=== PATIENT | male | born 1930 | race Caucasian/White ===

== ENCOUNTER 2016-10-18 11:27 | Inpatient (IN) | payer OTHER, MEDICARE ==
[2016-10-18] VITALS (8 sets, daily range): BP systolic 137–152; BP diastolic 68–83; PULSE 55–78; RESP 18–20; TEMP 97.6–98; O2SAT 96–97
[~2016-10-18] VITALS: Ht 180.3 cm; Wt 91.4 kg
[~2016-10-18 11:27] MED LIST: ASPI81 PO; BACT800T5 PO; FISH1000 PO; GLUC500C56 PO; LISI10TA PO; LORT5TAB PO; PROS5TAB2 PO
[2016-10-18] MEDS ORDERED: SODIUM CHLOR 0.9% 1000 ML INJ 1,000 ML IV SCH (11:36)
[2016-10-18] MEDS ORDERED: ASPIRIN 325 MG TAB PO SCH (11:45)
[2016-10-18] MEDS ORDERED: LISI10TA3 PO (11:58)
[2016-10-18] MEDS ORDERED: IBUP200C PO (11:58)
[2016-10-18] MEDS ORDERED: SALM50I INH (11:58)
[2016-10-18] MEDS ORDERED: ASPI81TA5 PO (11:58)
[2016-10-18] MEDS: NS 1000P @30 MLS/HR (KVO) IV SCH (12:15)
[2016-10-18 12:29] LABS: BASOPHIL % 0.4 % (0.0-2.0); EOSINOPHIL # 0.1 TH/MM3 (0-0.4); EOSINOPHIL % 1.5 % (0.0-4.0); HEMATOCRIT 39.8 % (39.0-51.0); HEMO FLAGS DIFF FINAL; LYMPHOCYTE # 1.5 TH/MM3 (1.0-4.8); MEAN CELL VOLUME 95.7 FL (80.0-100.0); MEAN CORPUSCULAR HGB CONC 33.4 % (32.0-36.0); MONO % 9.3 % (0.0-8.0); NEUT % 58.8 % (16.0-70.0); PLATELET COUNT 231 TH/MM3 (150-450); RED BLOOD COUNT 4.16 MIL/MM3 (4.50-5.90); RED CELL DISTRIBUTION WIDTH 14.1 % (11.6-17.2); WHITE BLOOD COUNT 5.1 TH/MM3 (4.0-11.0)
[2016-10-18 12:44] LABS: APTT (PATIENT) 23.9 SEC (24.3-30.1); PROTHROMBIN TIME - PATIENT 11.4 SEC (9.8-11.6)
[2016-10-18 12:45] LABS: BICARBONATE 30.2 MEQ/L (21.0-32.0); POTASSIUM 4.1 MEQ/L (3.5-5.1)
[2016-10-18] MEDS ORDERED: IOHEXOL 350 MG/ML 100 ML BTL (for Cath Lab) OTHER ONE (13:11)
[2016-10-18] MEDS ORDERED: HEPARIN-NS/PF INJ 500 ML ONE (13:21)
[2016-10-18] MEDS ORDERED: MIDAZOLAM HCL 2 MG/2 ML VIAL ONE ×2 (13:22→14:01)
[2016-10-18] MEDS ORDERED: HEPARIN SODIUM - IV 10,000 UNITS/10 ML VIAL ONE (13:57)
[2016-10-18] MEDS ORDERED: METOPROLOL TARTRATE 25 MG TAB PO SCH (16:00)
[2016-10-18] MEDS ORDERED: CEFAZOLIN INJ 500 MG in SODIUM CHLORIDE 0.9% IRR BTL 500 ML IRRIGATION SCH (16:00)
[2016-10-18] MEDS ORDERED: CHLORHEXIDINE GLUCONATE 4% SOLN 120 ML BTL TOPICAL SCH (16:00)
[2016-10-18] MEDS ORDERED: INSULIN REGULAR (IV INFUSION) 100 UNITS in SODIUM CHLORIDE 0.9% INJ 100 ML IV SCH (16:00)
[2016-10-18] MEDS ORDERED: ceFAZolin 2 GM PREMIX 50 ML IV SCH (16:00)
[2016-10-18] MEDS ORDERED: PAPAVERINE INJ 60 MG, NITROGLYCERIN INJ 100 MCG, DILTIAZEM INJ 100 MG in SODIUM CHLORID... IRRIGATION SCH (16:00)
--- NOTE | 2016-10-18 16:05 | PD.CAR.PN ---
CVT Progress Note Subjective/Hospital Course: RISK SCORES About the STS Risk Calculator Procedure: CAB Only Risk of Mortality: 1.871% Morbidity or Mortality: 13.084% Long Length of Stay: 6.125% Short Length of Stay: 40.219% Permanent Stroke: 0.619% Prolonged Ventilation: 7.802% DSW Infection: 0.362% Renal Failure: 1.593% Reoperation: 6.215 Objective: Vital Signs Date Time Temp Pulse Resp B/P Pulse Ox O2 Delivery O2 Flow Rate FiO2 10/18/16 14:45 Room Air 10/18/16 11:56 97.6 63 18 152/83 96 Labs: Laboratory Tests Test 10/18/16 11:57 White Blood Count 5.1 TH/MM3 (4.0-11.0) Red Blood Count 4.16 MIL/MM3 (4.50-5.90) Hemoglobin 13.3 GM/DL (13.0-17.0) Hematocrit 39.8 % (39.0-51.0) Mean Corpuscular Volume 95.7 FL (80.0-100.0) Mean Corpuscular Hemoglobin 32.0 PG (27.0-34.0) Mean Corpuscular Hemoglobin 33.4 % Concent (32.0-36.0) Red Cell Distribution Width 14.1 % (11.6-17.2) Platelet Count 231 TH/MM3 (150-450) Mean Platelet Volume 8.9 FL (7.0-11.0) Neutrophils (%) (Auto) 58.8 % (16.0-70.0) Lymphocytes (%) (Auto) 30.0 % (9.0-44.0) Monocytes (%) (Auto) 9.3 % (0.0-8.0) Eosinophils (%) (Auto) 1.5 % (0.0-4.0) Basophils (%) (Auto) 0.4 % (0.0-2.0) Neutrophils # (Auto) 3.0 TH/MM3 (1.8-7.7) Lymphocytes # (Auto) 1.5 TH/MM3 (1.0-4.8) Monocytes # (Auto) 0.5 TH/MM3 (0-0.9) Eosinophils # (Auto) 0.1 TH/MM3 (0-0.4) Basophils # (Auto) 0.0 TH/MM3 (0-0.2) CBC Comment DIFF FINAL Differential Comment Prothrombin Time 11.4 SEC (9.8-11.6) Prothromb Time International 1.0 RATIO Ratio Activated Partial 23.9 SEC Thromboplast Time (24.3-30.1) Sodium Level 141 MEQ/L (136-145) Potassium Level 4.1 MEQ/L (3.5-5.1) Chloride Level 102 MEQ/L (98-107) Carbon Dioxide Level 30.2 MEQ/L (21.0-32.0) Anion Gap 9 MEQ/L (5-15) Blood Urea Nitrogen 19 MG/DL (7-18) Creatinine 0.85 MG/DL (0.60-1.30) Estimat Glomerular Filtration 86 ML/MIN (>89) Rate Random Glucose 93 MG/DL (74-106) Calcium Level 9.0 MG/DL (8.5-10.1) Result Diagram: 10/18/16 1157 10/18/16 1157 Jatin Dominguez MD Oct 18, 2016 16:05
[2016-10-18] MEDS ORDERED: PILL SPLITTER OTHER PRN (16:15)
[2016-10-18 16:42] LABS: BLOOD, URINE NEG (NEG); COMMENT (UR) CULT NOT INDICATED; CULTURE IF INDICATED CULT NOT INDICATED; GLUCOSE,URINE NEG (NEG); KETONE, URINE NEG (NEG); MUCUS URINE FEW /lpf (OCC); NITRITE,URINE NEG (NEG); URINE COLOR YELLOW (YELLW/STRAW)
[2016-10-18 17:06] LABS: AUTOMATED NEUTROPHIL # 2.3 TH/MM3 (1.8-7.7); BASOPHIL % 0.6 % (0.0-2.0); EOSINOPHIL # 0.1 TH/MM3 (0-0.4); EOSINOPHIL % 1.8 % (0.0-4.0); HEMATOCRIT 36.8 % (39.0-51.0); HEMO FLAGS DIFF FINAL; LYMPH % 34.3 % (9.0-44.0); LYMPHOCYTE # 1.5 TH/MM3 (1.0-4.8); MEAN CELL VOLUME 95.7 FL (80.0-100.0); MEAN CORPUSCULAR HEMOGLOBIN 32.5 PG (27.0-34.0); MEAN CORPUSCULAR HGB CONC 33.9 % (32.0-36.0); MONO % 9.9 % (0.0-8.0); NEUT % 53.4 % (16.0-70.0); PLATELET COUNT 185 TH/MM3 (150-450); RED BLOOD COUNT 3.85 MIL/MM3 (4.50-5.90); RED CELL DISTRIBUTION WIDTH 13.8 % (11.6-17.2); WHITE BLOOD COUNT 4.3 TH/MM3 (4.0-11.0)
[2016-10-18 17:16] LABS: APTT (PATIENT) 25.7 SEC (24.3-30.1); INTERNATIONAL NORMALIZED RATIO 1.1 RATIO; PROTHROMBIN TIME - PATIENT 11.7 SEC (9.8-11.6)
[2016-10-18 17:27] LABS: BICARBONATE 27.5 MEQ/L (21.0-32.0); POTASSIUM 4.4 MEQ/L (3.5-5.1)
--- NOTE | 2016-10-18 17:30 | MB ---
cc: ANA DONAHUE HUMAYUN A. M.D. KHANNA, SOHIT K. MD DATE OF CONSULTATION 10/18/2016, at 3:[address] Westfall REASON FOR CONSULTATION Critical coronary artery disease. HISTORY OF THE PRESENT ILLNESS Mr. Key is a very pleasant 86-year gentleman with a known history of hypertension, GERD, and COPD who now presents with progressive episodes of chest pain. He describes this as a substernal pressure sensation. It is not related to activities or relieved by any activities. He has been evaluated by Dr. Westfall and has undergone further workup including a nuclear stress test which was abnormal and eventual coronary angiogram today which revealed a 95% calcific LAD stenosis with relatively preserved ventricular function. I am now being consulted for surgical revascularization therapy. At present time he remains pain free, hemodynamically stable with no evidence of ongoing ischemia. PAST MEDICAL HISTORY Significant for: 1. Hypertension. 2. Gastroesophageal reflux disease. 3. COPD. 4. Dizziness. 5. History of prostate cancer. PAST SURGICAL HISTORY Remarkable for: 1. Cataract surgery. 2. Prostate radiation. 3. Hernia surgery. 4. Hip replacement. 5. Cardiac cath in the past. ALLERGIES THE PATIENT REPORTS NO KNOWN DRUG ALLERGIES. MEDICATIONS ON ADMISSION Include: 1. Lisinopril 10 mg daily. 2. Aspirin 81 mg daily. 3. Ibuprofen 200 mg q.6h as needed. 4. Serevent Diskus inhaler 50 mcg b.i.d. SOCIAL HISTORY Denies any history of smoking, alcohol use or illicit drug use. FAMILY HISTORY Noncontributory. REVIEW OF SYSTEMS As above. All other parameters negative. PHYSICAL EXAMINATION VITAL SIGNS: Today he is 180 cm tall, weighs 87 kilos, blood pressure 152/83 with a heart rate of 62 which is regular, respiratory rate is 18 and he is afebrile. HEENT: Normocephalic, atraumatic. Pupils round and reactive. Extraocular muscles intact. NECK: No cervical lymphadenopathy, carotid bruits or JVD. CARDIOVASCULAR: Regular rate and rhythm. Normal S1-S2 without gallops, rubs or murmurs. LUNGS: Clear to auscultation bilaterally with good exchange. ABDOMEN: Soft, nontender, nondistended. Normoactive bowel sounds. No hepatosplenomegaly. EXTREMITIES: Bilateral lower extremities pulses are intact without cyanosis, clubbing or edema. No venous varicosities. NEUROLOGIC: Intact with no focal deficits. IMPRESSION 1. Critical single-vessel coronary artery disease. 2. Gastroesophageal reflux disease. 3. Hypertension. 4. COPD. PLAN The clinical and angiographic findings were discussed in detail with the patient and today. Therapeutic options available including MIDCAB in an off-pump fashion was discussed. The risks, complications and benefits of surgical procedure as well as the potential need to convert to a median sternotomy incision was discussed and all questions answered. They appeared to comprehend the given information and wished to proceed with the planned operation. We will proceed with surgical procedure as described above tomorrow morning as a first case basis. In the meantime we will obtain vein mapping, PFTs and carotid duplex imaging. Thank you for allowing me to participate in the care of your patient. Jatin GODDARD /3:54 PM /5:07 PM DONTRELL
[2016-10-18] MEDS ORDERED: EPINEPHrine HCL (1:10,000) 1 MG/10 ML SYRINGE ONE (20:53)
[2016-10-18] MEDS ORDERED: ATROPINE SULFATE 1 MG/10 ML SYRINGE ONE (20:54)
--- NOTE | 2016-10-18 21:21 | RADRPT ---
EXAM DATE/TIME: 10/18/2016 21:12 [facility] COMPARISON: No previous studies available for comparison. INDICATIONS : Evaluate for pneumonia, pneumothorax, or communicable disease. Pre op CABG. MEDICAL HISTORY : None. SURGICAL HISTORY : None. ENCOUNTER: Initial ACUITY: 1 day PAIN SCORE: 0/10 LOCATION: Bilateral chest FINDINGS: The lungs are clear without infiltrate, nodule, or mass. There is no appreciable pleural effusion fo r technique. Heart and mediastinum are unremarkable. The left hemidiaphragm is elevated. There are a therosclerotic calcifications of the aorta due to chronic atherosclerotic disease. Coronary artery ca lcifications are seen typically seen with CAD and need to be evaluated clinically. there is degenerat luan change with osteopenia in the thoracic spine and mild anterior wedging of multiple thoracic verte brae. CONCLUSION: No acute cardiopulmonary disease. Sebastian Flores MD on October 18, 2016 at 21:19 Board Certified Radiologist. This report was verified electronically.
[2016-10-18] MEDS: MUPIROCIN 2% OINT 1 APPLIC/GM SYR EACH NARE SCH (21:27)
--- NOTE | 2016-10-18 21:58 | RADRPT ---
EXAM DATE/TIME: 10/18/2016 20:00 [facility] COMPARISON: No previous studies available for comparison. INDICATIONS : Pre op cardiac surgery. MEDICAL HISTORY : Carcinoma, prostate. Chronic obstructive pulmonary disease. Hypertension. SURGICAL HISTORY : Tonsillectomy. Right hip replacement with revision. Left cataract removal. Cardiac catheterizatio n. ENCOUNTER: Initial ACUITY: 1 day PAIN SCORE: 0/10 LOCATION: Bilateral neck PEAK SYSTOLIC VELOCITIES (cm/sec): ICA/CCA RATIO: Right: 0.5 Left: 1.0 ICA: Right: 98 Left: 91 CCA: Right: 203 Left: 94 ECA: Right: 100 Left: 105 VERTEBRAL: Right: 72 antegrade Left: 65 antegrade Elevated flow velocities and ICA/CCA ratios have been found to correlate with increased degrees of vessel stenosis, calculated as percentage of diameter relative to a normal segment of distal ICA/CCA FINDINGS: Antegrade flow is seen in both vertebral arteries. There is mild atherosclerotic plaquing at the orig in of both ICAs without any significant stenosis. CONCLUSION: No evidence for hemodynamically significant stenosis. Sebastian Flores MD on October 18, 2016 at 21:56 Board Certified Radiologist. This report was verified electronically.
--- NOTE | 2016-10-18 22:02 | RADRPT ---
EXAM DATE/TIME: 10/18/2016 19:18 [facility] COMPARISON: No previous studies available for comparison. EXTERNAL COMPARISON : [facility], US LEG, LEFT VENOUS DOPPLER, May 31, 2016 INDICATIONS : Pre op cardiac surgery. MEDICAL HISTORY : Carcinoma, prostate. Chronic obstructive pulmonary disease. Hypertension. SURGICAL HISTORY : Tonsillectomy. Right hip replacement with revision. Left cataract removal. Cardiac catheterization. ENCOUNTER: Initial ACUITY: 1 day PAIN SCORE: 0/10 LOCATION: Bilateral legs. TECHNIQUE: Venous ultrasound of the left and right leg was performed from the inguinal ligament to the proximal calf. Real-time, color Doppler and spectral tracing, compression and augmentation techniques were us ed. FINDINGS: RIGHT LEG: There is normal compressibility of the deep venous system from the inguinal region to the proximal ca lf. No echogenic clot is seen in the lumen of the common femoral, femoral, popliteal, and posterior tibial veins. There is a normal response of the venous system to proximal and distal augmentation an d respiration. LEFT LEG: There is normal compressibility of the deep venous system from the inguinal region to the proximal ca lf. No echogenic clot is seen in the lumen of the common femoral, femoral, popliteal, and posterior tibial veins. There is a normal response of the venous system to proximal and distal augmentation an d respiration. CONCLUSION: Normal examination. Sebastian Flores MD on October 18, 2016 at 22:00 Board Certified Radiologist. This report was verified electronically.
--- NOTE | 2016-10-18 22:07 | RADRPT ---
EXAM DATE/TIME: 10/18/2016 19:32 [facility] COMPARISON: No previous studies available for comparison. INDICATIONS : Pre op cardiac surgery. MEDICAL HISTORY : Carcinoma, prostate. Chronic obstructive pulmonary disease. Hypertension. SURGICAL HISTORY : Tonsillectomy. Right hip replacement with revision. Left cataract removal. Cardiac catheterization. ENCOUNTER: Initial ACUITY: 1 day PAIN SCORE: 0/10 LOCATION: Bilateral legs. GREATER SAPHENOUS VEIN THIGH: PROXIMAL: Right 4 mm Left 4 mm MID: Right 3 mm Left 3 mm DISTAL: Right 3 mm Left 3 mm CALF: PROXIMAL: Right 3 mm Left 4 mm MID: Right 2 mm Left 2 mm DISTAL: Right 2 mm Left 2 mm FINDINGS: The venous system of the lower extremities are patent by color Doppler imaging. Measurements of the leg veins (in mm) are listed above. CONCLUSION: Normal examination. Sebastian Flores MD on October 18, 2016 at 22:05 Board Certified Radiologist. This report was verified electronically.
[2016-10-19] VITALS (16 sets, daily range): BP systolic 108–158; BP diastolic 43–86; PULSE 53–87; RESP 14–18; TEMP 96.2–98; O2SAT 92–97
[2016-10-19] MEDS ORDERED: AMINOCAPROIC ACID INJ 250 MG/ML 20 ML VIAL IV ONE (05:00)
[2016-10-19] MEDS ORDERED: MAGNESIUM SULFATE 1000 MG/2 ML VIAL (PED) IV ONE (05:00)
[2016-10-19] MEDS ORDERED: PHENYLEPHRINE HCL 10 MG/ML VIAL IV ONE (05:00)
[2016-10-19] MEDS ORDERED: VECURONIUM BROMIDE 10 MG VIAL IV ONE (05:00)
[2016-10-19] MEDS ORDERED: ACETAMINOPHEN 1000 MG/100 ML VIAL IV ONE (05:00)
[2016-10-19] MEDS ORDERED: GLYCOPYRROLATE 0.2 MG/ML VIAL IV ONE (05:00)
[2016-10-19] MEDS ORDERED: PROTAMINE SULFATE 250 MG/25 ML VIAL IV ONE (05:00)
[2016-10-19] MEDS ORDERED: PROPOFOL 1000 MG/100 ML INJ 100 ML IV ONE (05:00)
[2016-10-19] MEDS ORDERED: DEXMEDETOMIDINE INJ 50 ML IV ONE (05:00)
[2016-10-19] MEDS ORDERED: NEOSTIGMINE METHYLSULFATE 10 MG/10 ML VIAL IV PUSH ONE (05:00)
[2016-10-19] MEDS ORDERED: HEPARIN SODIUM - SQ 10,000 UNITS/ML VIAL SQ ONE (05:00)
[2016-10-19] MEDS ORDERED: HEPARIN SODIUM - SQ 10,000 UNITS/ML VIAL ONE (06:25)
[2016-10-19] MEDS ORDERED: ceFAZolin 2 GM PREMIX 50 ML ONE (06:25)
[2016-10-19] MEDS ORDERED: VANCOMYCIN HCL 1000 MG VIAL ONE (06:25)
[2016-10-19] MEDS ORDERED: POTASSIUM CHLORIDE 40 MEQ/20 ML VIAL ONE (07:14)
[2016-10-19] MEDS ORDERED: BUPIVACAINE LIPOSO PF 1.3% INJ 20 ML, DEXAMETHASONE INJ 4 MG in SODIUM CHLORIDE 0.9% IN... P-ARTICULR SCH (07:30)
[2016-10-19] MEDS: MUPIROCIN 2% OINT 1 APPLIC/GM SYR EACH NARE SCH ×2 (09:00→20:42)
[2016-10-19] MEDS: DOBUTamine PREMIX DRIP 250 ML IV SCH (10:34)
--- NOTE | 2016-10-19 10:42 | PD.OP ---
cc: Pam Westfall MD; Jatin Dominguez MD Operative Report Date of Surgery: Oct 19, 2016 Preoperative Diagnosis: Postoperative Diagnosis: Procedure: 1. Minimally Invasive Coronary Artery Bypass Grafting x 1 (MIDCAB) with MONTERO to LAD 2. Intercostal Nerve Block . Surgeon: Jatin Dominguez . Automotive Brake Adjuster(s): Rita Kim . Operation and Findings: PREOPERATIVE DIAGNOSES 1. Coronary Artery Disease 2. COPD 3. HTN POSTOPERATIVE DIAGNOSES Same SURGICAL PROCEDURE 1. Minimally Invasive Coronary Artery Bypass Grafting x 1 (MIDCAB) with MONTERO to LAD 2. Intercostal Nerve Block TOXICOLOGY SUPERVISOR MILO Pearce ANESTHESIA General Endotracheal. BI DATA ARCHITECT Elizabeth Tineo CRNA, Jose Ramon Watkins MD PREPARATION ChloraPrep. NEEDLE, SPONGE AND INSTRUMENT COUNT Correct. DRAINS 28 Fr Chest Tube. COMPLICATIONS None. INDICATIONS The patient is a 86-year-old with chest pain and CAD, presenting for surgical correction of the above pathology. DESCRIPTION OF PROCEDURE The patient was brought to the operating room and placed supine on the OR table. Following the induction of adequate general double lumen endotracheal anesthesia and placement of appropriate monitoring devices, the patient was then prepped and draped in the standard sterile fashion. The patient was positioned supine with the left chest slightly bumped up using an inflatable balloon. A left anterior mini-thoracotomy (6 cm) was then performed in the 4th ICS mid- clavicular line and carried down to the pleura. The left pleural space was entered. Using the Medtronic Thoratrak retractor, the left internal mammary artery (MONTERO) was dissected free as a pedicle from the posterior sternal table. The entire length from the innominate vein to its bifurcation was harvested. The patient was systemically heparinized and anticoagulation monitored by serial ACT measurements. The pericardium was then opened longitudinally over the anterior wall. Stay sutures were placed and the heart exposed. The LAD was identified coursing trans-apically and isolated. At this point the MONTERO was anastomosed to the mid LAD in an end-to-side fashion in a beating heart manner using the Maquet stabilizer and a running 7-0 Prolene stitch. The anastomosis was inspected and appeared to be hemostatic and patent with triphasic flow via doppler evaluation. Protamine was given. The pericardium was partially reapproximated with interrupted Vicryl sutures. The length of the MONTERO graft as well as the harvest sites were inspected and assured to be hemostatic. Intercostal nerve block was performed using Exparel at the level of the incision as well as two rib spaces above and below. A [address] was placed in the pleural space. The intercostal space was approximated with 2 pericostal sutures of #1 Vicryl. The musculo-fascial layer was then closed in 2 layers. The skin was reapproximated with subcuticular stitch and Dermabond. The patient tolerated the procedure well and was transferred to CVICU in stable condition. Jatin Dominguez MD Oct 19, 2016 10:42
[2016-10-19] MEDS ORDERED: MORPHINE SULFATE 4 MG/ML INJ IV PRN (10:45)
[2016-10-19] MEDS ORDERED: EPINEPHrine (1:1000) INJ 4 MG in DEXTROSE 5% IN WATER INJ 246 ML IV SCH ×2 (10:45)
[2016-10-19] MEDS ORDERED: MEPERIDINE HCL 25 MG/ML VIAL IV PRN (10:45)
[2016-10-19] MEDS ORDERED: ALBUMIN HUMAN 5% 12.5 GM/250 ML BOTTLE IV PRN (10:45)
[2016-10-19] MEDS ORDERED: CLEVIDIPINE INJ 50 ML IV SCH (10:45)
[2016-10-19] MEDS ORDERED: POTASSIUM CHLORIDE 20 MEQ CONTROLLED RELEASE TAB PO PRN ×2 (10:45)
[2016-10-19] MEDS ORDERED: ACETAMINOPHEN 650 MG SUPP RECTAL PRN (10:45)
[2016-10-19] MEDS ORDERED: POTASSIUM CHLOR 20 MEQ PREMIX 100 ML IV PRN ×2 (10:45)
[2016-10-19] MEDS ORDERED: KETOROLAC TROMETHAMINE 30 MG/ML (IVP) VIAL IV PUSH PRN (10:45)
[2016-10-19] MEDS ORDERED: NITROGLYCERIN-DEXTROSE INJ 250 ML IV SCH (10:45)
[2016-10-19] MEDS ORDERED: MAGNESIUM SULFATE INJ 2 GM in SODIUM CHLORIDE 0.9% INJ 100 ML IV PRN ×4 (10:45)
[2016-10-19] MEDS ORDERED: ONDANSETRON HCL 4 MG/2 ML VIAL IV PUSH PRN (10:45)
[2016-10-19] MEDS ORDERED: DEXMEDETOMIDINE INJ 200 MCG in SODIUM CHLORIDE 0.9% INJ 50 ML IV SCH (10:45)
[2016-10-19] MEDS ORDERED: CALCIUM CHLORIDE 10% 1 GRAM/10 ML VIAL IV PRN (10:45)
[2016-10-19] MEDS ORDERED: hydrALAZINE HCL 20 MG/ML VIAL IV PRN (10:45)
[2016-10-19] MEDS ORDERED: Post-op Orders (for Pharmacy) MISC OTHER ONE (10:45)
[2016-10-19] MEDS ORDERED: DEXTROSE 50% IN WATER 50 ML VIAL(D50) IV PUSH PRN (10:45)
[2016-10-19] MEDS ORDERED: ACETAMINOPHEN 325 MG TAB PO PRN (10:45)
[2016-10-19] MEDS ORDERED: METOPROLOL TARTRATE 5 MG/5 ML VIAL IV PUSH PRN (10:45)
[2016-10-19] MEDS ORDERED: DOPamine INJ PREMIX 500 ML IV SCH (10:45)
[2016-10-19] MEDS ORDERED: PHENYLEPHRINE INJ 40 MG in DEXTROSE 5% IN WATE 500 ML INJ 496 ML IV SCH ×2 (10:45)
[2016-10-19] MEDS ORDERED: ACETAMINOPHEN/HYDROcodone 325 MG/5 MG TAB PO PRN (10:45)
--- NOTE | 2016-10-19 10:46 | EKG ---
Date Performed: 10/18/2016 Time Performed: 12:06:00 PTAGE: 86 years EKG: Sinus rhythm with PAC(s). Poor R wave progression - probable normal variant Borderline ECG Compared to prior trac ing no significant change PREVIOUS TRACING : 06/18/2008 14.51 DOCTOR: Irena Choi Interpretating Date/Time 10/19/2016 10:40:08
[2016-10-19] MEDS ORDERED: MIDAZOLAM HCL 5 MG/5 ML VIAL ONE ×2 (11:24→11:25)
[2016-10-19] MEDS ORDERED: fentaNYL CITRATE 1000 MCG/20 ML VIAL ONE (11:25)
[2016-10-19] MEDS: CALCIUM CHLORIDE INJ 1 GM in SODIUM CHLORIDE 0.9% INJ 100 ML IV PRN ×2 (11:45→14:40)
[2016-10-19] MEDS: POTASSIUM CHLOR 20 MEQ PREMIX 100 ML IV PRN ×2 (11:45→16:49)
[2016-10-19] MEDS ORDERED: SODIUM CHLORID 0.9% 500 ML INJ 500 ML IV ONE (12:00)
[2016-10-19] MEDS ORDERED: ACETAMINOPHEN 1000 MG/100 ML VIAL IV SCH (12:00)
[2016-10-19] MEDS ORDERED: INSULIN REGULAR (IV INFUSION) 100 UNITS in SODIUM CHLORIDE 0.9% INJ 99 ML IV SCH (12:00)
[2016-10-19] MEDS ORDERED: NORMOSOL R INJ 2,000 ML IV ONE (12:00)
[2016-10-19] MEDS ORDERED: SODIUM CHLOR 0.9% 250 ML INJ 500 ML IV ONE (12:00)
[2016-10-19] MEDS ORDERED: LACTATED RINGER'S 1000 ML INJ 2,000 ML IV ONE (12:00)
[2016-10-19] MEDS: NS 1000P @30 MLS/HR (KVO) IV SCH (12:15)
--- NOTE | 2016-10-19 12:22 | RADRPT ---
EXAM DATE/TIME: 10/19/2016 11:31 [facility] COMPARISON: CHEST PA & LAT, October 18, 2016, 21:12. INDICATIONS : Post CABG MEDICAL HISTORY : Carcinoma, prostate. Chronic obstructive pulmonary disease. Hypertension. SURGICAL HISTORY : Tonsillectomy. Right hip replacement with revision. Left cataract removal. ENCOUNTER: Subsequent ACUITY: 3 days PAIN SCORE: 0/10 LOCATION: Bilateral chest FINDINGS: There are findings of congestive heart failure with interstitial and alveolar opacity bilaterally. A left chest tube is in place. There is no evidence of pneumothorax. A left subclavian catheter in plac e directed superiorly with its tip in the region of the left jugular vein. There is left lower lobe a telectasis versus pneumonia. A small left sided effusion is present. CONCLUSION: 1. Cardiomegaly and findings of congestive heart failure. 2. Left subclavian vein catheter directed superiorly 3. There is no evidence of pneumothorax. Jose Ramon Pond MD on October 19, 2016 at 12:20 Board Certified Radiologist. This report was verified electronically.
[2016-10-19] MEDS: ACETAMINOPHEN 1000 MG/100 ML VIAL IV SCH ×2 (15:56→21:02)
[2016-10-19] MEDS: LACTATED RINGER'S 1000 ML INJ 500 ML IV PRN ×2 (16:12→18:21)
[2016-10-19] MEDS: ACETAMINOPHEN/HYDROcodone 325 MG/5 MG TAB PO PRN (19:46)
[2016-10-19] MEDS: AMIODARONE 200 MG TAB PO SCH (21:02)
[2016-10-20] VITALS (19 sets, daily range): BP systolic 134–165; BP diastolic 58–88; PULSE 70–110; RESP 16–22; TEMP 97.8–98.4; O2SAT 95–100
--- NOTE | 2016-10-20 04:44 | RADRPT ---
EXAM DATE/TIME: 10/20/2016 04:03 [facility] COMPARISON: CHEST SINGLE AP, October 19, 2016, 11:31. INDICATIONS : Shortness of breath. MEDICAL HISTORY : None. SURGICAL HISTORY : CABG. ENCOUNTER: Subsequent ACUITY: 1 day PAIN SCORE: Non-responsive. LOCATION: Bilateral chest FINDINGS: A single portable frontal view of the chest shows a left subclavian central line coursing cephalad up the left internal jugular vein. The heart is enlarged. Elevation left hemidiaphragm. Pulmonary vascu lar engorgement. No effusions. Linear atelectasis within the left lung base. Left-sided chest tube al elinor the lateral aspects of the chest cavity. Most proximal sidehole is approaching but has not reache d the chest wall. CONCLUSION: 1. Left subclavian central line coursing cephalad within the jugular vein. 2. Cardiomegaly and pulmonary vascular engorgement. 3. Left basilar atelectasis. 4. Left chest tube side hole is approaching the chest wall. No pneumothorax. Charbel King Jr., MD on October 20, 2016 at 4:41 Board Certified Radiologist. This report was verified electronically.
[2016-10-20] MEDS: DOBUTamine PREMIX DRIP 250 ML IV SCH (05:00)
[2016-10-20] MEDS: ACETAMINOPHEN 1000 MG/100 ML VIAL IV SCH ×2 (05:00→08:34)
[2016-10-20 05:38] LABS: HEMATOCRIT 30.9 % (39.0-51.0); MEAN CELL VOLUME 95.3 FL (80.0-100.0); MEAN CORPUSCULAR HEMOGLOBIN 32.5 PG (27.0-34.0); MEAN CORPUSCULAR HGB CONC 34.1 % (32.0-36.0); PLATELET COUNT 174 TH/MM3 (150-450); RED BLOOD COUNT 3.24 MIL/MM3 (4.50-5.90); RED CELL DISTRIBUTION WIDTH 14.2 % (11.6-17.2); REVIEW FLAG FINAL; WHITE BLOOD COUNT 8.5 TH/MM3 (4.0-11.0)
[2016-10-20 05:55] LABS: BICARBONATE 26.7 MEQ/L (21.0-32.0); POTASSIUM 4.1 MEQ/L (3.5-5.1)
[2016-10-20] MEDS: ACETAMINOPHEN/HYDROcodone 325 MG/5 MG TAB PO PRN (06:17)
[2016-10-20] MEDS: PANTOPRAZOLE SOD 40 MG DELAYED RELEASE TAB PO SCH (06:17)
[2016-10-20] MEDS ORDERED: POTASSIUM CHLORIDE 20 MEQ CONTROLLED RELEASE TAB PO ONE (08:15)
[2016-10-20] MEDS ORDERED: DEXTROSE 50% IN WATER 50 ML VIAL(D50) IV PRN (08:30)
[2016-10-20] MEDS ORDERED: GLUCAGON 1 MG/ML VIAL OTHER PRN (08:30)
[2016-10-20] MEDS ORDERED: SOD PHOSPHATE/SOD BIPHOSPHATE (ADULT) ENEMA 133ML RECTAL PRN (08:30)
[2016-10-20] MEDS: MUPIROCIN 2% OINT 1 APPLIC/GM SYR EACH NARE SCH ×2 (08:31→21:00)
[2016-10-20] MEDS: ASPIRIN 81 MG CHEW TAB PO SCH (08:31)
[2016-10-20] MEDS: CLOPIDOGREL 75 MG TAB PO SCH (08:32)
[2016-10-20] MEDS: AMIODARONE 200 MG TAB PO SCH ×2 (08:32→21:14)
[2016-10-20] MEDS ORDERED: FUROSEMIDE 40 MG/4 ML VIAL ONE (08:36)
[2016-10-20] MEDS ORDERED: BISACODYL 10 MG SUPP RECTAL PRN (09:00)
--- NOTE | 2016-10-20 09:06 | EKG ---
Date Performed: 10/20/2016 Time Performed: 05:59:26 PTAGE: 86 years EKG: Sinus rhythm . Lateral T wave changes are nonspecific Borderline ECG PREVIOUS TRACING : 10/18/2016 12.06 DOCTOR: Travis Taylor Interpretating Date/Time 10/20/2016 09:04:06
[2016-10-20] MEDS: MAGNESIUM HYDROXIDE SUSP 30 ML CUP PO SCH (09:07)
[2016-10-20] MEDS: METOCLOPRAMIDE HCL 10 MG/2 ML VIAL IV SCH ×3 (09:08→21:16)
[2016-10-20] MEDS: DOCUSATE SODIUM 100 MG CAP PO SCH ×2 (09:08→21:14)
[2016-10-20] MEDS: MULTIVITAMINS/MINERALS THERAPEUTIC TAB PO SCH (09:08)
[2016-10-20] MEDS: SALMETEROL XINAFOATE 50 MCG DISKUS INH SCH ×2 (09:08→21:16)
[2016-10-20] MEDS: METOPROLOL TARTRATE 25 MG TAB PO SCH ×2 (09:08→21:15)
[2016-10-20] MEDS ORDERED: FUROSEMIDE 40 MG/4 ML VIAL IV PUSH ONE (09:15)
[2016-10-20] MEDS: INSULIN ASPART SUPPLEMENTAL SCALE SQ SCH ×4 (09:37→22:00)
[2016-10-20] MEDS: LISINOPRIL 5 MG TAB PO SCH (11:34)
[2016-10-20] MEDS: RESP: ALBUTEROL 2.5 MG/IPRATROPIUM 0.5 MG NEB (SCH) NEB ×2 (13:39→18:58)
--- NOTE | 2016-10-20 15:13 | MA ---
cc: ANA GORMAN HUMAYUN A. M.D. KHANNA, SOHIT K. MD DATE: 10/18/2016 PROCEDURE Cardiac catheterization. INDICATION FOR CATHETERIZATION 1. Unstable angina. 2. Abnormal nuclear stress test. 3. Patient planning to leave country on a cruise. CONSENT A full informed consent was obtained prior to the procedure. The risks of , bleeding, myocardial infarction, perforation, aspiration, foreseen and unforeseen complications were reviewed. The patient fully appeared to understand the risks. PROCEDURAL STATEMENTS The patient was draped and prepped in the usual manner. The right femoral artery was entered using a micropuncture technique with ultrasound. Via a 4-Syriac sheath left and right coronary catheters were used to intubate the left and right coronaries. A pigtail catheter was used to intubate the left ventricle. Multiple angiographic views were carried out. At the end of the procedure all catheters and sheaths were removed. Manual pressure was applied until good hemostasis was achieved and the patient was returned to his room in stable condition. FINDINGS HEMODYNAMICS The aortic pressure and LV pressure were equivalent systolic. There was no evidence of significant gradient on pullback across the LV outflow track and aortic valve. LEFT VENTRICULOGRAM The overall left ventricular ejection fraction was well-preserved at 60%. There was no evidence of significant mitral regurgitation or mural thrombus. CORONARIES The left main was short but wide and free of significant disease. The left anterior descending artery was heavily calcified throughout the proximal mid and early distal sections. In the proximal section was an 85% very eccentric stenosis with heavy calcification. The entire midsection of the LAD was heavily calcified. In the distal part of the midsection of the LAD there was a 95% stenosis. There was a heavily calcified space-occupying nodule in the shape of an "egg" which was heavily calcified. The distal vessel was also moderately calcified but was of good caliber. The left circumflex was a large vessel. The first obtuse marginal branch was large. There was evidence of diffuse 25-30% disease in the first obtuse marginal branch. The second obtuse marginal branch was medium and free of significant disease. The third obtuse marginal branch came off the circumflex and was a medium size vessel with 25% disease. This was probably in the territory of the posterolateral branch. The right coronary artery was a co-dominant vessel and had some mild diffuse 25% disease. CONCLUSIONS 1. Normal LV function. 2. Severe single-vessel coronary artery disease involving the mid LAD. PLAN One could consider high-risk Rotablator versus bypass surgery. The bypass surgery can be done with a "MIDCAB" with a beating heart and I believe over the residential this would be the better treatment for the patient. I have discussed in detail with the patient and his , and with Dr. Jatin Dominguez. Once bypassed the patient will be able to see his regular physician, Dr. Biju Gorman and will follow with the undersigned. Pam Westfall MD, FRCP,[facility] /3:06 PM /2:55 PM
[2016-10-20] MEDS ORDERED: ATORVASTATIN 40 MG TAB PO SCH (21:00)
[2016-10-20] MEDS: SENNOSIDES 8.6 MG TAB PO SCH (21:15)
[2016-10-20] MEDS ORDERED: METOPROLOL TARTRATE 25 MG TAB PO ONE (21:45)
[2016-10-21] VITALS (31 sets, daily range): BP systolic 126–153; BP diastolic 70–95; PULSE 74–112; RESP 16–24; TEMP 97.4–98.4; O2SAT 93–99
[2016-10-21] MEDS: INSULIN ASPART SUPPLEMENTAL SCALE SQ SCH ×5 (02:00→21:00)
[2016-10-21] MEDS: METOCLOPRAMIDE HCL 10 MG/2 ML VIAL IV SCH (02:32)
[2016-10-21] MEDS: PANTOPRAZOLE SOD 40 MG DELAYED RELEASE TAB PO SCH (06:00)
[2016-10-21 06:05] LABS: AUTOMATED NEUTROPHIL # 6.7 TH/MM3 (1.8-7.7); BASOPHIL % 0.3 % (0.0-2.0); EOSINOPHIL # 0.1 TH/MM3 (0-0.4); EOSINOPHIL % 0.9 % (0.0-4.0); HEMATOCRIT 32.8 % (39.0-51.0); HEMO FLAGS DIFF FINAL; LYMPH % 12.9 % (9.0-44.0); LYMPHOCYTE # 1.1 TH/MM3 (1.0-4.8); MEAN CELL VOLUME 95.7 FL (80.0-100.0); MEAN CORPUSCULAR HEMOGLOBIN 32.9 PG (27.0-34.0); MEAN CORPUSCULAR HGB CONC 34.4 % (32.0-36.0); MONO % 8.8 % (0.0-8.0); NEUT % 77.1 % (16.0-70.0); PLATELET COUNT 165 TH/MM3 (150-450); RED BLOOD COUNT 3.43 MIL/MM3 (4.50-5.90); RED CELL DISTRIBUTION WIDTH 13.9 % (11.6-17.2); WHITE BLOOD COUNT 8.7 TH/MM3 (4.0-11.0)
[2016-10-21 06:35] LABS: ALT (GPT) 23 U/L (12-78); ANION GAP 8 MEQ/L (5-15); AST (GOT) 33 U/L (15-37); BICARBONATE 26.8 MEQ/L (21.0-32.0); BLOOD UREA NITROGEN 19 MG/DL (7-18); CHLORIDE 102 MEQ/L (98-107); GLOMERULAR FILTRATION RATE 96 ML/MIN (>89); SODIUM (NA) 137 MEQ/L (136-145)
[2016-10-21 06:37] LABS: ALKALINE PHOSPHATASE 38 U/L (45-117); HDL CHOLESTEROL 66.3 MG/DL (40.0-60.0); LDL CHOLESTEROL 55 MG/DL (0-99); TOTAL BILIRUBIN ADULT 0.4 MG/DL (0.2-1.0)
[2016-10-21] MEDS: RESP: ALBUTEROL 2.5 MG/IPRATROPIUM 0.5 MG NEB (SCH) NEB ×2 (07:24→13:45)
[2016-10-21] MEDS ORDERED: MAGNESIUM SULFATE 1 GM PREMIX 100 ML IV ONE (08:00)
[2016-10-21] MEDS: MUPIROCIN 2% OINT 1 APPLIC/GM SYR EACH NARE SCH ×2 (08:37→21:00)
[2016-10-21] MEDS: CLOPIDOGREL 75 MG TAB PO SCH (08:44)
[2016-10-21] MEDS: ASPIRIN 81 MG CHEW TAB PO SCH (08:44)
[2016-10-21] MEDS: LISINOPRIL 5 MG TAB PO SCH (08:44)
[2016-10-21] MEDS: MAGNESIUM HYDROXIDE SUSP 30 ML CUP PO SCH (08:45)
[2016-10-21] MEDS: POLYETHYLENE GLYCOL 17 GM PKG PO SCH (08:45)
[2016-10-21] MEDS: SALMETEROL XINAFOATE 50 MCG DISKUS INH SCH ×2 (08:45→21:41)
[2016-10-21] MEDS: MULTIVITAMINS/MINERALS THERAPEUTIC TAB PO SCH (08:45)
[2016-10-21] MEDS: AMIODARONE 200 MG TAB PO SCH ×2 (08:45→21:39)
[2016-10-21] MEDS: DOCUSATE SODIUM 100 MG CAP PO SCH ×2 (08:45→21:39)
[2016-10-21] MEDS: METOPROLOL TARTRATE 25 MG TAB PO SCH ×2 (08:45→21:39)
--- NOTE | 2016-10-21 12:53 | EKG ---
Date Performed: 10/20/2016 Time Performed: 21:27:08 PTAGE: 86 years EKG: Atrial fibrillation with rapid ventricular response Anterolateral T wave changes are nonspe cific Abnormal ECG NO PREVIOUS TRACING DOCTOR: Andrew Osorio Interpretating Date/Time 10/21/2016 12:51:58
--- NOTE | 2016-10-21 14:26 | PD.CAR.PN ---
CVT Progress Note Subjective/Hospital Course: 86/ male recent hx of chest pain eval by Dr Westfall and underwent nuclear stress test which was abnormal and underwent elective cardiac cath / revealing 95% LAD stenosis and preserved LV function PMH: HTN, GERD, COPD prostate CA surgery: 10/19 Minimally Invasive Coronary Artery Bypass Grafting x 1 (MIDCAB) with MONTERO to LAD 4/ pt extubated after surgery , on nasal cannula , gentle diuresis , continue nebs pm po Amiodarone , plavix ASA statin, start BB Left subclavian line coursing upward toward jugular vein/ will remove continue chest tube to wall suction / pt went into afib overnight / received additional BB > converted back to NSR continue po amiodarone and BB pt SOB with some wheezing noted, on long acting corticosteroid and nebs gentle diuresis, chest tube removed without difficulty eval for dc home 1-2 days Objective: GENERAL: SKIN: Warm and dry.incision intact left upper anterior chest wall HEAD: Normocephalic. EYES: No scleral icterus. No injection or drainage. NECK: Supple, trachea midline. No JVD or lymphadenopathy. CARDIOVASCULAR: Regular rate and rhythm without murmurs, gallops, or rubs. RESPIRATORY: mild insp and exp wheezing noted chest tube removed Breath sounds equal bilaterally. No accessory muscle use. GASTROINTESTINAL: Abdomen soft, non-tender, nondistended. MUSCULOSKELETAL: No cyanosis, or edema. BACK: Nontender without obvious deformity. No CVA tenderness. Vital Signs Date Time Temp Pulse Resp B/P Pulse Ox O2 Delivery O2 Flow Rate FiO2 10/21/16 14:00 78 10/21/16 13:04 81 10/21/16 12:05 93 Nasal Cannula 3.00 10/21/16 12:03 98.1 76 16 139/85 93 10/21/16 12:00 78 10/21/16 11:00 80 10/21/16 10:00 96 10/21/16 09:00 88 10/21/16 08:00 99 Nasal Cannula 3.00 10/21/16 08:00 92 10/21/16 08:00 97.5 74 16 153/80 99 10/21/16 07:24 94 Nasal Cannula 2.00 10/21/16 07:00 82 10/21/16 06:00 105 10/21/16 05:00 105 10/21/16 04:08 95 10/21/16 04:06 94 Nasal Cannula 3.00 10/21/16 04:06 98.0 92 22 126/81 94 10/21/16 03:00 96 10/21/16 02:00 90 10/21/16 01:00 112 10/21/16 00:00 98.4 89 20 146/95 94 10/21/16 00:00 94 Nasal Cannula 3.00 10/21/16 00:00 98 10/20/16 23:00 100 10/20/16 22:00 110 10/20/16 21:00 84 10/20/16 20:00 84 10/20/16 20:00 97.8 87 22 165/82 96 10/20/16 20:00 97 Nasal Cannula 2.50 10/20/16 19:00 82 10/20/16 18:00 90 10/20/16 17:00 78 10/20/16 16:00 80 10/20/16 16:00 97.9 72 16 153/88 96 10/20/16 16:00 Nasal Cannula 2.00 21 10/20/16 15:35 96 Nasal Cannula 2.00 10/20/16 15:00 78 Labs: Laboratory Tests Test 10/21/16 05:00 White Blood Count 8.7 TH/MM3 (4.0-11.0) Red Blood Count 3.43 MIL/MM3 (4.50-5.90) Hemoglobin 11.3 GM/DL (13.0-17.0) Hematocrit 32.8 % (39.0-51.0) Mean Corpuscular Volume 95.7 FL (80.0-100.0) Mean Corpuscular Hemoglobin 32.9 PG (27.0-34.0) Mean Corpuscular Hemoglobin 34.4 % Concent (32.0-36.0) Red Cell Distribution Width 13.9 % (11.6-17.2) Platelet Count 165 TH/MM3 (150-450) Mean Platelet Volume 8.9 FL (7.0-11.0) Neutrophils (%) (Auto) 77.1 % (16.0-70.0) Lymphocytes (%) (Auto) 12.9 % (9.0-44.0) Monocytes (%) (Auto) 8.8 % (0.0-8.0) Eosinophils (%) (Auto) 0.9 % (0.0-4.0) Basophils (%) (Auto) 0.3 % (0.0-2.0) Neutrophils # (Auto) 6.7 TH/MM3 (1.8-7.7) Lymphocytes # (Auto) 1.1 TH/MM3 (1.0-4.8) Monocytes # (Auto) 0.8 TH/MM3 (0-0.9) Eosinophils # (Auto) 0.1 TH/MM3 (0-0.4) Basophils # (Auto) 0.0 TH/MM3 (0-0.2) CBC Comment DIFF FINAL Differential Comment Sodium Level 137 MEQ/L (136-145) Potassium Level 4.0 MEQ/L (3.5-5.1) Chloride Level 102 MEQ/L (98-107) Carbon Dioxide Level 26.8 MEQ/L (21.0-32.0) Anion Gap 8 MEQ/L (5-15) Blood Urea Nitrogen 19 MG/DL (7-18) Creatinine 0.77 MG/DL (0.60-1.30) Estimat Glomerular Filtration 96 ML/MIN (>89) Rate Random Glucose 88 MG/DL (74-106) Calcium Level 8.3 MG/DL (8.5-10.1) Magnesium Level 2.0 MG/DL (1.5-2.5) Total Bilirubin 0.4 MG/DL (0.2-1.0) Aspartate Amino Transf 33 U/L (15-37) (AST/SGOT) Alanine Aminotransferase 23 U/L (12-78) (ALT/SGPT) Alkaline Phosphatase 38 U/L (45-117) Total Protein 6.0 GM/DL (6.4-8.2) Albumin 3.1 GM/DL (3.4-5.0) Triglycerides Level 63 MG/DL (42-150) Cholesterol Level 134 MG/DL (120-200) LDL Cholesterol 55 MG/DL (0-99) HDL Cholesterol 66.3 MG/DL (40.0-60.0) Cholesterol/HDL Ratio 2.02 RATIO Result Diagram: 10/21/16 0500 10/21/16 0500 Telemetry: Afib> NSR (1) Coronary artery disease (2) S/P CABG x 1 Plan: ASA, statin , BB , amiodarone and plavix pulm toileting, nebs, ezpap CM to eval for HHC PT/ OOB ambulate (3) COPD (chronic obstructive pulmonary disease) Plan: long acting corticosteroid nebs with albuterol (4) Hypertension Plan: controlled / on BB / PETEY (5) Afib Plan: resolved, additional BB given, on amiodarone Ana García Oct 21, 2016 14:26
--- NOTE | 2016-10-21 14:28 | HHI.FF ---
Face to Face Verification Diagnosis: (1) COPD (chronic obstructive pulmonary disease) (2) Coronary artery disease (3) Hypertension (4) Afib (5) S/P CABG x 1 Physical Therapy Order: Evaluate and Treat Home Health Nursing Order: Signs/symptoms of disease process Wound care and dressing changes Instructions: Incentive spirometry Q1 hr x 10, while awake, also use acapella device hourly whole awake Sternal Breast Bone Precautions: NO pushing or pulling, ( pt must use sternal pillow to support chest with all activities and with coughing ( takes up to 3 months breast bone to heal ) Daily incision care: ok to shower daily, no tub bath. Wash all incisions with liquid dial soap, clean wash cloth to each site, rinse and pat dry. Observe for any signs of infection, such as drainage which is dark yellow, waller, green or foul smelling. Immediately report to the surgeon any drainage from the chest incision, or legs, and for any abnormal drainage from the chest tube sites. Notify surgeon if any temp >101.5 degrees F. When specialty dressing removed/ or if you do not have one, continue to shower daily as above, then rinse and pat incision dry and paint with betadine daily x 5 days. Allow steri strips to fall off if you have any. Avoid lotions, creams, salves, oils, etc. for the first month F/U appointment: as per IN instructions: PCP in 2 weeks, CV surgeon 2 weeks, Filling Carrier 3-4 weeks For any questions regarding incisions/ dressing / meds / post op care or above Symptoms, Tuesday 8am-5pm Heart & Vascular Surgery Office ( Dr. Dominguez & Dr. Persaud), After Hours / Nights (5pm -8am) Weekends and Holidays Please call [facility] Card[facility] Unit ([facility]) Charge Nurse Heart and Vascular Surgery patients *Special attention to sternal dressing Mandatory frequency Assess and evaluation, 4 days in a row The next week 3X week 2 times a week for 4 weeks 1 time a week for 5 weeks Schedule Heart and Vascular patients for full 60 day certification period Initial visit Review Open Heart Surgery Discharge Instructions (Sternal precautions, Activity, Elastic hose, Incision care, Driving, Incentive spirometry, Smoking, [place], Work and other) Need Betadine to paint incision Medication reconciliation Importance of follow up care/ check on appointments Make calendar record temperature daily When to call [facility] nurse, review instructions, phone list Incentive Spirometry, demonstration Visit 1- Begin discharge instruction for patient family and/ or caregiver using teach back method- Signs and symptoms of infection Disease characteristics Medicines and side effects Foods and nutrition/ appetite Infection control/ hand washing/ hygiene Visit 2- Continue teaching Discharge instructions- include additional information on smoking cessation , sternal dressing (sternal vac) Visit 3- Continue teaching- Cough and deep breathing, incision monitoring. Choose my plate Visit 4- Continue teaching- Discuss limitations Discuss how they are feeling Discuss progress toward goals Remaining visits- continue teaching and monitoring I have seen patient Filipe Key on 10/21/16. My clinical findings support the need for the requested home health care services because: Patient has SOB Deconditioned w/ increased weakness I certify that my clinical findings support that this patient is homebound because: Post-op weakness Ana García Oct 21, 2016 14:28
[2016-10-21] MEDS ORDERED: RESP: ALBUTEROL 2.5 MG/IPRATROPIUM 0.5 MG NEB (PRN) NEB (14:30)
[2016-10-21] MEDS ORDERED: ATOR20TA15 PO (14:34)
[2016-10-21] MEDS ORDERED: METO25TA3 PO (14:34)
[2016-10-21] MEDS ORDERED: PLAV75TA29 PO (14:34)
[2016-10-21] MEDS ORDERED: DOCU1CAP39 PO (14:34)
[2016-10-21] MEDS ORDERED: VENTAER INH (14:34)
[2016-10-21] MEDS ORDERED: AMIO200T PO (14:34)
[2016-10-21] MEDS ORDERED: THERM PO (14:34)
[2016-10-21] MEDS ORDERED: NEBUKIT5 (14:51)
[2016-10-21] MEDS ORDERED: ALBU0.08 NEB (14:53)
[2016-10-21] MEDS ORDERED: IPRA0.02 NEB (14:53)
[2016-10-21] MEDS: POTASSIUM CHLORIDE 10 MEQ CONTROLLED RELEASE TAB PO SCH ×2 (17:55→21:40)
[2016-10-21] MEDS: FUROSEMIDE 20 MG/2 ML VIAL IV PUSH SCH (17:55)
[2016-10-21] MEDS: SENNOSIDES 8.6 MG TAB PO SCH (21:39)
[2016-10-21] MEDS: ATORVASTATIN 20 MG TAB PO SCH (21:40)
[2016-10-22] VITALS (30 sets, daily range): BP systolic 121–153; BP diastolic 68–86; PULSE 72–117; RESP 16–20; TEMP 97.4–98.3; O2SAT 95–96
--- NOTE | 2016-10-22 05:31 | RADRPT ---
EXAM DATE/TIME: 10/22/2016 04:53 [facility] COMPARISON: CHEST SINGLE AP, October 20, 2016, 4:03. INDICATIONS : Post chest tube removal. MEDICAL HISTORY : None. SURGICAL HISTORY : CABG. ENCOUNTER: Subsequent ACUITY: 4 - 6 days PAIN SCORE: Non-responsive. LOCATION: Bilateral chest FINDINGS: Previously seen left chest tube has been removed. Left basilar opacity is present may be due to a com bination of consolidation and or pleural effusion an increased since the prior exam. Slight subcutane ous emphysema is seen on the left.Mild right lung base atelectasis and/or infiltrate is seen. Tiny le ft apical pneumothorax is seen. The rest of the examination has not significantly changed. CONCLUSION: 1. Worsening left basilar opacity probably combination of pleural effusion and left lung base consoli dation and there is also right lung base atelectasis and/or infiltrate. 2. Tiny left apical pneumothorax. Sebastian Flores MD on October 22, 2016 at 5:28 Board Certified Radiologist. This report was verified electronically.
[2016-10-22] MEDS: PANTOPRAZOLE SOD 40 MG DELAYED RELEASE TAB PO SCH (06:00)
[2016-10-22] MEDS: INSULIN ASPART SUPPLEMENTAL SCALE SQ SCH ×4 (06:03→21:00)
[2016-10-22 07:11] LABS: BICARBONATE 29.3 MEQ/L (21.0-32.0); MAGNESIUM 2.4 MG/DL (1.5-2.5); POTASSIUM 3.9 MEQ/L (3.5-5.1)
[2016-10-22] MEDS: RESP: ALBUTEROL 2.5 MG/IPRATROPIUM 0.5 MG NEB (SCH) NEB ×3 (07:29→19:17)
[2016-10-22] MEDS: MUPIROCIN 2% OINT 1 APPLIC/GM SYR EACH NARE SCH ×2 (07:46→21:00)
[2016-10-22] MEDS: AMIODARONE 200 MG TAB PO SCH ×2 (07:47→22:20)
[2016-10-22] MEDS: METOPROLOL TARTRATE 25 MG TAB PO SCH (07:47)
[2016-10-22] MEDS: POTASSIUM CHLORIDE 10 MEQ CONTROLLED RELEASE TAB PO SCH (09:33)
[2016-10-22] MEDS: LISINOPRIL 10 MG TAB PO SCH (09:33)
[2016-10-22] MEDS: DOCUSATE SODIUM 100 MG CAP PO SCH ×2 (09:33→22:19)
[2016-10-22] MEDS: ASPIRIN 81 MG CHEW TAB PO SCH (09:33)
[2016-10-22] MEDS: MULTIVITAMINS/MINERALS THERAPEUTIC TAB PO SCH (09:33)
[2016-10-22] MEDS: CLOPIDOGREL 75 MG TAB PO SCH (09:34)
[2016-10-22] MEDS: FUROSEMIDE 20 MG/2 ML VIAL IV PUSH SCH (09:34)
[2016-10-22] MEDS: SALMETEROL XINAFOATE 50 MCG DISKUS INH SCH ×2 (09:34→21:00)
[2016-10-22] MEDS: MAGNESIUM HYDROXIDE SUSP 30 ML CUP PO SCH (09:34)
[2016-10-22] MEDS: POLYETHYLENE GLYCOL 17 GM PKG PO SCH (09:34)
[2016-10-22] MEDS ORDERED: METOPROLOL TARTRATE 25 MG TAB PO ONE (10:15)
--- NOTE | 2016-10-22 11:29 | PD.CAR.PN ---
CVT Progress Note CVT: POD #: 3 Subjective/Hospital Course: 86/ male recent hx of chest pain eval by Dr Westfall and underwent nuclear stress test which was abnormal and underwent elective cardiac cath / revealing 95% LAD stenosis and preserved LV function PMH: HTN, GERD, COPD prostate CA surgery: 10/19 Minimally Invasive Coronary Artery Bypass Grafting x 1 (MIDCAB) with MONTERO to LAD / pt extubated after surgery , on nasal cannula , gentle diuresis , continue nebs pm po Amiodarone , plavix ASA statin, start BB Left subclavian line coursing upward toward jugular vein/ will remove continue chest tube to wall suction cxr noted left pleural effusion / consult IR for US guided thoracentesis 10/21 pt went into afib overnight / received additional BB > converted back to NSR continue po amiodarone and BB pt SOB with some wheezing noted, on long acting corticosteroid and nebs gentle diuresis, chest tube removed without difficulty eval for dc home 1-2 days 10/22 pt still SOB with exertion desats to 87% with ambulation off 02 may need home 02 / CXR noted left mod pleural effusion consult IR for US guided thoracentesis intermittent afib / add bolus of amiodarone spoke with Dr Westfall / taper dose amiodarone [place] V score 3.2 start eliquis after thoracentesis Objective: GENERAL: SKIN: Warm and dry./ incision intact left chest wall dressing to chest tube web site designer: Normocephalic. EYES: No scleral icterus. No injection or drainage. NECK: Supple, trachea midline. No JVD or lymphadenopathy. CARDIOVASCULAR: irregular rate and rhythm without murmurs, gallops, or rubs. RESPIRATORY: diminished left lower lobe , faint exp wheeze . No accessory muscle use. GASTROINTESTINAL: Abdomen soft, non-tender, nondistended. MUSCULOSKELETAL: No cyanosis, or edema. BACK: Nontender without obvious deformity. No CVA tenderness. Vital Signs Date Time Temp Pulse Resp B/P Pulse Ox O2 Delivery O2 Flow Rate FiO2 10/22/16 11:00 106 10/22/16 10:00 104 10/22/16 09:00 84 10/22/16 08:16 115 10/22/16 07:34 95 Nasal Cannula 1.00 10/22/16 07:30 98.3 108 18 146/86 96 10/22/16 07:30 96 Nasal Cannula 1.00 10/22/16 07:00 106 10/22/16 06:04 79 10/22/16 05:00 74 10/22/16 04:15 77 10/22/16 03:30 96 Nasal Cannula 2.00 10/22/16 03:30 97.7 84 20 153/81 96 10/22/16 03:00 72 10/22/16 02:02 78 10/22/16 01:27 81 10/22/16 00:01 73 10/21/16 23:20 94 Nasal Cannula 2.00 10/21/16 23:20 97.9 82 24 144/77 94 10/21/16 23:00 75 10/21/16 22:04 77 10/21/16 21:00 84 10/21/16 20:24 89 10/21/16 20:03 96 Nasal Cannula 2.00 10/21/16 19:30 98.1 86 22 135/70 99 10/21/16 19:30 99 Nasal Cannula 2.00 10/21/16 19:12 78 10/21/16 18:01 75 10/21/16 17:04 79 10/21/16 16:14 75 10/21/16 15:19 94 Nasal Cannula 3.00 10/21/16 15:02 75 10/21/16 15:00 97.4 78 16 151/78 94 10/21/16 14:00 78 10/21/16 13:04 81 10/21/16 12:05 93 Nasal Cannula 3.00 10/21/16 12:03 98.1 76 16 139/85 93 10/21/16 12:00 78 Labs: Laboratory Tests Test 10/22/16 06:22 Sodium Level 137 MEQ/L (136-145) Potassium Level 3.9 MEQ/L (3.5-5.1) Chloride Level 102 MEQ/L (98-107) Carbon Dioxide Level 29.3 MEQ/L (21.0-32.0) Anion Gap 6 MEQ/L (5-15) Blood Urea Nitrogen 16 MG/DL (7-18) Creatinine 0.68 MG/DL (0.60-1.30) Estimat Glomerular Filtration 111 ML/MIN Rate (>89) Random Glucose 96 MG/DL (74-106) Calcium Level 8.7 MG/DL (8.5-10.1) Magnesium Level 2.4 MG/DL (1.5-2.5) Result Diagram: 10/21/16 0500 10/22/16 0622 Telemetry: Afib (1) Coronary artery disease (2) S/P CABG x 1 Plan: ASA, statin , BB , amiodarone and plavix ( plavix held for thoracentesis ) pulm toileting, nebs, ezpap CM to eval for C PT/ OOB ambulate (3) COPD (chronic obstructive pulmonary disease) Plan: long acting corticosteroid nebs with albuterol (4) Hypertension Plan: controlled / on BB / PETEY (5) Afib Plan: resolved, additional BB given, on amiodarone > recurrent , additional amiodarone bolus given (6) Pleural effusion Plan: left, consult IR for US guided thoracentesis Ana García Oct 22, 2016 11:29
[2016-10-22] MEDS ORDERED: METO50TA PO (11:30)
[2016-10-22] MEDS ORDERED: AMIODARONE INJ 150 MG in DEXTROSE 5% IN WATER 100ML INJ 97 ML IV ONE ×2 (11:30)
[2016-10-22] MEDS ORDERED: OXYGENTANK NAS.CANULA (11:56)
[2016-10-22] MEDS ORDERED: APIX5TAB PO (12:08)
[2016-10-22] MEDS ORDERED: AMIO400T PO (12:10)
[2016-10-22] MEDS ORDERED: EPINEPHrine HCL (1:10,000) 1 MG/10 ML SYRINGE ONE (15:07)
[2016-10-22] MEDS ORDERED: ATROPINE SULFATE 1 MG/10 ML SYRINGE ONE (15:08)
--- NOTE | 2016-10-22 16:35 | RADRPT ---
EXAM DATE/TIME: 10/22/2016 15:36 [facility] COMPARISON: No previous studies available for comparison. INDICATIONS : Left pleural effusion. Post left chest tube removal. MEDICAL HISTORY : Hypertension. COPD. Prostate cancer. SURGICAL HISTORY : Right hip replacement. Heart cath. ENCOUNTER: Initial ACUITY: 1 day PAIN SCORE: 4/10 LOCATION: Left chest. MEASUREMENTS: SKIN TO PARIETAL PLEURA: Inadequate fluid SKIN TO MAX SAFE DEPTH: Inadequate fluid ESTIMATED FLUID VOLUME: 117 cc FLUID COMPOSITION: simple FINDINGS: CONCLUSION: Trace fluid on the left, not enough for safe thoracentesis.. Andrew Haddad MD FACR on October 22, 2016 at 16:33 Board Certified Radiologist. This report was verified electronically.
[2016-10-22] MEDS: ATORVASTATIN 20 MG TAB PO SCH (22:19)
[2016-10-22] MEDS: SENNOSIDES 8.6 MG TAB PO SCH (22:19)
[2016-10-22] MEDS: METOPROLOL TARTRATE 50 MG TAB PO SCH (22:20)
[2016-10-23] VITALS (15 sets, daily range): BP systolic 120–149; BP diastolic 71–85; PULSE 66–114; RESP 18–20; TEMP 97.5–98.1; O2SAT 93–96
[2016-10-23] MEDS: PANTOPRAZOLE SOD 40 MG DELAYED RELEASE TAB PO SCH (06:20)
[2016-10-23] MEDS: INSULIN ASPART SUPPLEMENTAL SCALE SQ SCH ×2 (06:23→11:00)
[2016-10-23] MEDS: RESP: ALBUTEROL 2.5 MG/IPRATROPIUM 0.5 MG NEB (SCH) NEB (07:41)
[2016-10-23] MEDS: MUPIROCIN 2% OINT 1 APPLIC/GM SYR EACH NARE SCH (08:44)
[2016-10-23] MEDS: DOCUSATE SODIUM 100 MG CAP PO SCH (08:44)
[2016-10-23] MEDS: METOPROLOL TARTRATE 50 MG TAB PO SCH (08:44)
[2016-10-23] MEDS: MAGNESIUM HYDROXIDE SUSP 30 ML CUP PO SCH (08:44)
[2016-10-23] MEDS: ASPIRIN 81 MG CHEW TAB PO SCH (08:44)
[2016-10-23] MEDS: POLYETHYLENE GLYCOL 17 GM PKG PO SCH (08:44)
[2016-10-23] MEDS: MULTIVITAMINS/MINERALS THERAPEUTIC TAB PO SCH (08:44)
[2016-10-23] MEDS: AMIODARONE 200 MG TAB PO SCH (08:45)
[2016-10-23] MEDS: LISINOPRIL 10 MG TAB PO SCH (08:45)
[2016-10-23] MEDS: SALMETEROL XINAFOATE 50 MCG DISKUS INH SCH (08:46)
[2016-10-23] MEDS ORDERED: APIXABAN 5 MG TABLET PO SCH (09:00)
--- NOTE | 2016-10-23 10:49 | HHI.DS ---
Discharge Summary Admission Date Oct 18, 2016 at 16:00 Discharge Date: Oct 23, 2016 Admitting Diagnosis CAD (1) Coronary artery disease Diagnosis: Principal (2) Hypertension Diagnosis: Secondary (3) Afib Diagnosis: Secondary (4) COPD (chronic obstructive pulmonary disease) Diagnosis: Secondary Procedures [facility] CABG Brief History Subjective/Hospital Course: 86/ male recent hx of chest pain eval by Dr Westfall and underwent nuclear stress test which was abnormal and underwent elective cardiac cath / revealing 95% LAD stenosis and preserved LV function PMH: HTN, GERD, COPD prostate CA CBC/BMP: 10/21/16 0500 10/22/16 0622 Significant Findings Laboratory Tests Test 10/21/16 05:00 Red Blood Count 3.43 MIL/MM3 (4.50-5.90) Hemoglobin 11.3 GM/DL (13.0-17.0) Hematocrit 32.8 % (39.0-51.0) Neutrophils (%) (Auto) 77.1 % (16.0-70.0) Monocytes (%) (Auto) 8.8 % (0.0-8.0) Blood Urea Nitrogen 19 MG/DL (7-18) Calcium Level 8.3 MG/DL (8.5-10.1) Alkaline Phosphatase 38 U/L (45-117) Total Protein 6.0 GM/DL (6.4-8.2) Albumin 3.1 GM/DL (3.4-5.0) HDL Cholesterol 66.3 MG/DL (40.0-60.0) Imaging Last Impressions Chest X-Ray 10/22/16 0600 Signed Impressions: Service Date/Time: Saturday, October 22, 2016 04:53 - CONCLUSION: 1. Worsening left basilar opacity probably combination of pleural effusion and left lung base consolidation and there is also right lung base atelectasis and/or infiltrate. 2. Tiny left apical pneumothorax. Sebastian Flores MD Chest Ultrasound 10/22/16 0000 Signed Impressions: Service Date/Time: Saturday, October 22, 2016 15:36 - CONCLUSION: Trace fluid on the left, not enough for safe thoracentesis.. Andrew Haddad MD FACR Lower Extremity Ultrasound 10/18/16 0000 Signed Impressions: Service Date/Time: Tuesday, October 18, 2016 19:32 - CONCLUSION: Normal examination. Sebastian Flores MD Carotid Artery Ultrasound 10/18/16 0000 Signed Impressions: Service Date/Time: Tuesday, October 18, 2016 20:00 - CONCLUSION: No evidence for hemodynamically significant stenosis. Sebastian Flores MD PE at Discharge chest - CTA COR - RRR, NSR ABD - soft, NT wound - dry and intact Hospital Course surgery: 10/19 Minimally Invasive Coronary Artery Bypass Grafting x 1 (MIDCAB) with MONTERO to LAD / pt extubated after surgery , on nasal cannula , gentle diuresis , continue nebs pm po Amiodarone , plavix ASA statin, start BB Left subclavian line coursing upward toward jugular vein/ will remove continue chest tube to wall suction cxr noted left pleural effusion / consult IR for US guided thoracentesis 10/21 pt went into afib overnight / received additional BB > converted back to NSR continue po amiodarone and BB pt SOB with some wheezing noted, on long acting corticosteroid and nebs gentle diuresis, chest tube removed without difficulty eval for dc home 1-2 days 10/22 pt still SOB with exertion desats to 87% with ambulation off 16 november need home 02 / CXR noted left mod pleural effusion consult IR for US guided thoracentesis intermittent afib / add bolus of amiodarone spoke with Dr Westfall / taper dose amiodarone [place] V score 3.2 start eliquis after thoracentesis 10/23/16 Thoracentesis not performed because effusion is tiny on u/s. Desats with ambulation - he has home oxygen Pt Condition on Discharge: Good Discharge Disposition: Disch w/ Home Health Serv Discharge Instructions DIET: Follow Instructions for: Heart Healthy Diet Activities you can perform: Full Weight Bearing, Shower Only-No Bath Activities to avoid: Lifting/Bending, Strenuous Activity, Driving Additional Activity Instructio: no lifting > 8lbs or gallon of milk Follow up Referrals: Cardiology PCP Follow-up Surgical New Medications: Albuterol 18 GM Inh (Ventolin Hfa 18 GM Inh) 90 Mcg/Act Aer 2 PUFF INH Q4-6H PRN SHORTNESS OF BREATH #2 Ref 0 INHALER Albuterol Neb (Albuterol Neb) 2.5 Mg/3 Ml Neb 2.5 MG NEB Q4HR NEB PRN SHORTNESS OF BREATH #120 Ref 1 NEBULE Amiodarone (Amiodarone) 400 Mg Tab 400 MG PO BID 400 mg po bid x 3 days , then 200mg bid x 3 days , then 200mg daily Regulate Heart Beat #60 Ref 0 TAB Apixaban (Eliquis) 5 Mg Tab 5 MG PO BID Blood Clot Prevention #60 Ref 2 TAB Ipratropium Neb (Ipratropium Neb) 0.5 Mg/2.5 Ml Amp 0.5 MG NEB Q4HR NEB PRN SHORTNESS OF BREATH #120 Ref 1 NEBULE Metoprolol Tartrate (Metoprolol Tartrate) 50 Mg Tab 50 MG PO BID Blood Pressure Management #60 Ref 0 TAB Nebulizer Kit/Tubing/Mout (Nebulizer Kit/Tubing/Mout) 1 Kit Kit 1 KIT .ROUTE DIRECTED Breathing Treatment #1 Ref 0 KIT Oxygen tank (Oxygen tank) 1 Ea Tank 2 LITER ESPINOZA.CANULA CONTINUOUS Oxygen Concentrator Portable Gaseous 2 L/min via Nasal Cannula Continuous For 99 months HYPOXEMIA PREVENTION #1 CYLINDER Atorvastatin (Atorvastatin) 20 Mg Tab 20 MG PO HS Cholesterol Management #30 Ref 2 TAB Docusate Sodium (Dok) 100 Mg Cap 100 MG PO BID Constipation #60 CAP Multiple Vitamins W/ Minerals (Thera M Plus) 1 Tab 1 TAB PO DAILY multi vitamin #30 TAB Continued Medications: Aspirin DR (Aspirin DR) 81 Mg Tabdr 81 MG PO DAILY Ref 0 TAB Lisinopril (Lisinopril) 10 Mg Tab 10 MG PO DAILY #30 Ref 0 TAB Salmeterol Inh (Serevent Diskus Inh) 50 Mcg/Act Aero 50 MCG INH BID #1 Ref 0 INHALER Discontinued Medications: Ibuprofen (Ibuprofen) 200 Mg Cap 200 MG PO Q6H PRN PAIN 1 TO 10 AND/OR AGITATION Ref 0 CAP Laura Persaud MD Oct 23, 2016 10:49
[2016-10-25] MEDS ORDERED: AMIODARONE 200 MG TAB PO SCH (21:00)
[2016-10-29] MEDS ORDERED: AMIODARONE 200 MG TAB PO SCH (09:00)
--- NOTE | 2016-11-08 10:36 | RSPPFT ---
DATE OF PROCEDURE: 10/18/16 COMMENTS: Spriometry with FEV1 of 1.18 at 39% of predicted, FVC of 1.4 at 37% indicating mild airways obstruction. There is no reversibility after use of bronchodilator. IMPRESSION: 1. Decreased FVC. 2. Airways obstruction. 3. Patient will require further evaluation in view of decreased FVC from pulmonary standpoint.
== END 2016-10-23 12:26 | disposition home health service (06) | DRG 234 ==
LOC: EDBD → HDOC 11:27 → HDIC 11:28 → EDBD 16:00 → HDOC 16:00 → HSDI 16:00 → HCIN 17:24 → HCIS 10-19 07:03 → HCVR 10-19 11:05 → HCIN 10-20 10:15
PROVIDERS: ADMIT Thoracic Surgery (Cardiothoracic Vascular Surgery); ATTEND Thoracic Surgery (Cardiothoracic Vascular Surgery)
PROC: 4A023N7 Measurement of Cardiac Sampling and Pressure, Left Heart, Percutaneous Approach (ICD-10-PCS; 2016-10-18)
PROC: B2111ZZ Fluoroscopy of Multiple Coronary Arteries using Low Osmolar Contrast (ICD-10-PCS; 2016-10-18)
PROC: B2151ZZ Fluoroscopy of Left Heart using Low Osmolar Contrast (ICD-10-PCS; 2016-10-18)
PROC: 3E0T3CZ (ICD-10-PCS; 2016-10-19)
PROC: 02100Z9 Bypass Coronary Artery, One Artery from Left Internal Mammary, Open Approach (ICD-10-PCS; principal; 2016-10-19 07:05)
DX: I25.110 Atherosclerotic heart disease of native coronary artery with unstable angina pectoris (principal); J90 Pleural effusion, not elsewhere classified; I48.91 Unspecified atrial fibrillation; J44.9 Chronic obstructive pulmonary disease, unspecified; I10 Essential (primary) hypertension; E78.5 Hyperlipidemia, unspecified; Z87.891 Personal history of nicotine dependence; K21.9 Gastro-esophageal reflux disease without esophagitis; Z79.82 Long term (current) use of aspirin; Z85.46 Personal history of malignant neoplasm of prostate; Z92.3 Personal history of irradiation; F10.10 Alcohol abuse, uncomplicated; Z96.641 Presence of right artificial hip joint
CPT/HCPCS: 36430; 71010; 71020; 76604; 76937; 80048; 80053; 80061; 81001; 82948; 83735; 85014; 85025; 85027; 85610; 85730; 86850; 86900; 86901; 86920; 87641; 93005; 93458; 93880; 93970; 93998; 94010; 94150; 94620; 94640; 94664; 94667; 94668; C1768; C1769; C1893; C9290; C9399; J0131; J0171; J0282; J0461; J0690; J1100; J1644; J1815; J1885; J1940; J2250; J2370; J2440; J2710; J2720; J2765; J3010; J3370; J3475; J3480; J7040; J7050; J7120; P9016; Q9967

== ENCOUNTER 2016-11-08 14:00 | Inpatient (IN) | payer OTHER, MEDICARE ==
[2016-11-08] VITALS (7 sets, daily range): BP systolic 110–145; BP diastolic 55–66; PULSE 58–81; RESP 17–26; TEMP 97.4; O2SAT 83–99
[~2016-11-08] VITALS: Ht 177.8 cm; Wt 83.5 kg
[~2016-11-08 14:00] MED LIST changes: +ALBU0.08 NEB; +AMIO400T PO; +APIX5TAB PO; -ASPI81 PO; +ASPI81TA5 PO; +ATOR20TA15 PO; -BACT800T5 PO; +DOCU1CAP39 PO; -FISH1000 PO; -GLUC500C56 PO; +IPRA0.02 NEB; -LISI10TA PO; +LISI10TA3 PO; -LORT5TAB PO; +METO50TA PO; +NEBUKIT5; +OXYGENTANK NAS.CANULA; -PROS5TAB2 PO; +SALM50I INH; +THERM PO; +VENTAER INH
--- NOTE | 2016-11-08 14:12 | PD ---
HPI Chief Complaint: Respiratory Symptoms Time Seen by Provider: 14:11 Travel History International Travel<30 days: No Contact w/Intl Traveler<30days: No History of Present Illness HPI 86-year-old male with history of A. fib, HTN, COPD, PE, CAD status post mini CABG [address] Dominguez on Eliquis presents to the ED for evaluation of 3-4 day history of worsening shortness of breath. Patient utilizes 1 L oxygen at home. He states that when he woke up today he was very short of breath, struggling to breathe. is at bedside and states that prior to today O2 sats had been in the high 80s and low 90s. Also complains of swelling in bilateral lower extremities. He states that he took a short course of Lasix immediately following his surgery. Patient denies fever, chills, cough, chest pain, abdominal pain, nausea, vomiting. He was scheduled to follow-up with Dr. Dominguez tomorrow. PFSH Past Medical History Cancer: Yes (PROSTATE) Cardiovascular Problems: Yes (CHEST PAIN) Chest Pain: No Diabetes: No Diminished Hearing: No Gastrointestinal Disorders: No Glaucoma: No Hepatitis: No Hiatal Hernia: No Hypertension: Yes Respiratory: Yes (COPD) Integumentary: No Thyroid Disease: No Past Surgical History Cardiac Surgery: Yes (HEART CATH) Eye Surgery: Yes (LEFT CATARACT SX 2007) Joint Replacement: Yes (RIGHT HIP 09/04/07) Oral Surgery: Yes (T&A CHILDHOOD) Other Surgery: Yes Social History Alcohol Use: Yes (2-3 GLASSES OF WINE, NIGHTLY; LAST DRINK 05/11/15) Tobacco Use: No (QUIT, ) Substance Use: No Allergies-Medications (Allergen,Severity, Reaction): Coded Allergies: No Known Allergies (Verified , 05/12/15) Reported Meds & Prescriptions Reported Meds & Active Scripts Active Amiodarone (Amiodarone HCl) 400 Mg Tab 400 Mg PO BID 400 mg po bid x 3 days , then 200mg bid x 3 days , then 200mg daily Eliquis (Apixaban) 5 Mg Tab 5 Mg PO BID Oxygen tank (Oxygen) 1 Ea Tank 2 Liter ESPINOZA.CANULA CONTINUOUS Oxygen Concentrator Portable Gaseous 2 L/min via Nasal Cannula Continuous For 99 months Metoprolol Tartrate 50 Mg Tab 50 Mg PO BID Ipratropium Neb (Ipratropium [place]) 0.5 Mg/2.5 Ml Amp 0.5 Mg NEB Q4HR NEB PRN Albuterol Neb (Albuterol Sulfate) 2.5 Mg/3 Ml Neb 2.5 Mg NEB Q4HR NEB PRN Nebulizer Kit/Tubing/Mout (N/A) 1 Kit Kit 1 Kit .ROUTE DIRECTED Ventolin Hfa 18 GM Inh (Albuterol Sulfate) 90 Mcg/Act Aer 2 Puff INH Q4-6H PRN Thera M Plus (Multivitamins/Minerals Therapeutic) 1 Tab 1 Tab PO DAILY Dok (Docusate Sodium) 100 Mg Cap 100 Mg PO BID Atorvastatin (Atorvastatin Calcium) 20 Mg Tab 20 Mg PO HS Reported Serevent Diskus Inh (Salmeterol Xinafoate) 50 Mcg/Act Aero 50 Mcg INH BID Lisinopril 10 Mg Tab 10 Mg PO DAILY Aspirin DR (Aspirin) 81 Mg Tabdr 81 Mg PO DAILY Review of Systems Except as stated in HPI: all other systems reviewed are Neg Physical Exam Narrative GENERAL: Well-nourished, well-developed white male in moderate respiratory distress. SKIN: Focused skin assessment warm/dry. HEAD: Normocephalic. EYES: No scleral icterus. No injection or drainage. NECK: Supple, trachea midline. No JVD or lymphadenopathy. CARDIOVASCULAR: Irregular rate and rhythm without murmurs, gallops, or rubs. 2 + DP and radial pulses bilaterally. RESPIRATORY: Breath sounds clear bilaterally. Somewhat diminished on the left. ++ accessory muscle use. Treating in short sentences. GASTROINTESTINAL: Abdomen soft, non-tender, nondistended. MUSCULOSKELETAL: No cyanosis. 2+ pitting edema to the knees bilaterally. Negative Homans sign bilaterally. BACK: Nontender without obvious deformity. No CVA tenderness. Data Data Last Documented VS Vital Signs Date Time Temp Pulse Resp B/P Pulse Ox O2 Delivery O2 Flow Rate FiO2 11/08/16 16:16 58 18 145/66 93 Nasal Cannula 3 11/08/16 14:02 97.4 Orders Complete Blood Count With Diff (11/08/16 14:26) Comprehensive Metabolic Panel (11/08/16 14:26) B-Type Natriuretic Peptide (11/08/16 14:26) D-Dimer (11/08/16 14:26) Act Partial Throm Time (Ptt) (11/08/16 14:26) Prothrombin Time / Inr (Pt) (11/08/16 14:26) Magnesium (Mg) (11/08/16 14:26) Ckmb (Isoenzyme) Profile (11/08/16 14:26) Troponin I (11/08/16 14:26) Ua Includes Microscopic (11/08/16 14:26) Blood Culture (11/08/16 14:26) Iv Access Insert/Monitor (11/08/16 14:) Electrocardiogram (11/08/16 14:) Ecg Monitoring (11/08/16 14:) Oximetry (11/08/16 14:) Oxygen Administration (11/08/16 14:) Chest, Single Ap (11/08/16 14:26) Sodium Chloride 0.9% Flush (Ns Flush) (11/08/16 14:30) Ct Pulmonary Angiogram (11/08/16 14:26) Furosemide Inj (Lasix Inj) (11/08/16 15:30) Iohexol 350 Inj (Omnipaque 350 Inj) (11/08/16 17:01) Piperacil-Tazo 4.5 Gm Premix (Zosyn 4.5 (11/08/16 17:05) Azithromycin Inj (Zithromax Inj) (11/08/16 17:05) Consult Cardiothoracic Surgery (11/08/16 ) Labs Laboratory Tests Test 11/08/16 11/08/16 15:08 15:37 White Blood Count 13.9 TH/MM3 Red Blood Count 3.40 MIL/MM3 Hemoglobin 10.6 GM/DL Hematocrit 32.6 % Mean Corpuscular Volume 95.7 FL Mean Corpuscular Hemoglobin 31.1 PG Mean Corpuscular Hemoglobin 32.5 % Concent Red Cell Distribution Width 13.7 % Platelet Count 515 TH/MM3 Mean Platelet Volume 7.4 FL Neutrophils (%) (Auto) 81.9 % Lymphocytes (%) (Auto) 6.2 % Monocytes (%) (Auto) 11.5 % Eosinophils (%) (Auto) 0.0 % Basophils (%) (Auto) 0.4 % Neutrophils # (Auto) 11.3 TH/MM3 Lymphocytes # (Auto) 0.9 TH/MM3 Monocytes # (Auto) 1.6 TH/MM3 Eosinophils # (Auto) 0.0 TH/MM3 Basophils # (Auto) 0.1 TH/MM3 CBC Comment DIFF FINAL Differential Comment Prothrombin Time 13.5 SEC Prothromb Time International 1.2 RATIO Ratio Activated Partial 28.9 SEC Thromboplast Time D-Dimer Quantitative (PE/DVT) 10.43 MG/L FEU Sodium Level 133 MEQ/L Potassium Level 5.4 MEQ/L Chloride Level 95 MEQ/L Carbon Dioxide Level 34.7 MEQ/L Anion Gap 3 MEQ/L Blood Urea Nitrogen 34 MG/DL Creatinine 1.07 MG/DL Estimat Glomerular Filtration 66 ML/MIN Rate Random Glucose 133 MG/DL Calcium Level 9.0 MG/DL Magnesium Level 2.4 MG/DL Total Bilirubin 0.4 MG/DL Aspartate Amino Transf 61 U/L (AST/SGOT) Alanine Aminotransferase 94 U/L (ALT/SGPT) Alkaline Phosphatase 148 U/L Total Creatine Kinase 99 U/L Troponin I LESS THAN 0.02 NG/ML B-Type Natriuretic Peptide 421 PG/ML Total Protein 7.6 GM/DL Albumin 3.3 GM/DL Urine Color DARK-YELLOW Urine Turbidity HAZY Urine pH 6.0 Urine Specific [place] 1.031 Urine Protein 100 mg/dL Urine Glucose (UA) NEG mg/dL Urine Ketones NEG mg/dL Urine Occult Blood NEG Urine Nitrite NEG Urine Bilirubin NEG Urine Urobilinogen 8.0 MG/DL Urine Leukocyte Esterase NEG Urine RBC 4 /hpf Urine WBC 3 /hpf Urine Squamous Epithelial <1 /hpf Cells Urine Hyaline Casts 17 /lpf Urine Mucus MANY /lpf MDM Medical Decision Making Medical Screen Exam Complete: Yes Emergency Medical Condition: Yes Differential Diagnosis PE versus heart failure versus pleural effusion versus ACS versus other Narrative Course 86-year-old male with history of A. fib, HTN, COPD, PE, CAD status post mini CABG [address] Alberto Moreira presents to the ED for evaluation of 3-4 day history of worsening shortness of breath. Patient utilizes 1 L oxygen at home. He states that when he woke up today he was struggling to breathe. is at bedside and states that prior to today O2 sats had been in the high 80s and low 90s. Also complains of swelling in bilateral lower extremities. He states that he took a short course of Lasix immediately following his surgery. Patient denies fever, chills, cough, chest pain, abdominal pain, nausea, vomiting. He was scheduled to follow-up with Dr. Dominguez tomorrow. Vitals reviewed. Pulse 59, BP 110/55, O2 sats 83% on room air on presentation. Physical exam reveals a pleasant white male in moderate respiratory distress. Tachypneic. Lungs clear but diminished on the left. 2+ pitting edema to the knees bilaterally. O2 sats improved to 93% on 3 L by nasal cannula. CBC C 13.9. 81.9% neutrophils. Hemoglobin 10.6. CMP: Potassium 5.4. BUN 34, creatinine 1.07. AST 61, ALT 94. BNP 421. D-dimer: 10.43 CXR: Elevated left hemidiaphragm with left basilar atelectasis, questionable left effusion. Right lung clear. Marked cardiomegaly without failure per radiology read. CTA: 1. No PE 2. Cardiomegaly with moderate effusion. 3. A left hemidiaphragm. 4. Consolidation in the left lower lung Patient was administered IV Zosyn and azithromycin to treat for HCAP. Dr. Lind spoke with Dr. Dominguez who requested that the patient be admitted to medicine with cardiac consult. I spoke with Dr. Bazzi who agrees to accept the patient to the medicine service. Please see medicine and cardiothoracic surgery notes for disposition. Mirella Martinez Nov 08, 2016 14:12
[2016-11-08] MEDS ORDERED: SODIUM CHLORIDE 0.9% FLUSH 10 ML FLUSH IVF PRN (14:30)
[2016-11-08] MEDS ORDERED: FUROSEMIDE 40 MG/4 ML VIAL IV PUSH ONE (15:30)
--- NOTE | 2016-11-08 15:42 | RADRPT ---
EXAM DATE/TIME: 11/08/2016 14:45 [facility] COMPARISON: CHEST SINGLE AP, October 22, 2016, 4:53. INDICATIONS : Short of breath. MEDICAL HISTORY : Chronic obstructive pulmonary disease. SURGICAL HISTORY : cabg three weeks ago. ENCOUNTER: Initial ACUITY: 1 day PAIN SCORE: 0/10 LOCATION: Bilateral chest FINDINGS: A single view of the chest demonstrates stable elevation of left hemidiaphragm with concomitant atele ctatic changes in the left base. Possible associated left-sided effusion. Right lung is grossly clear . Marked cardiac enlargement without failure. Dextroscoliosis of the thoracolumbar spine with associa christa degenerative changes. Degenerative spurring in both shoulders. CONCLUSION: 1. Stable elevation of the left hemidiaphragm with left basilar atelectasis. 2. Possible associated left-sided effusion. Right lung remains clear. 3. Marked cardiomegaly without failure. Pal Hare MD on November 08, 2016 at 15:38 Board Certified Radiologist. This report was verified electronically.
[2016-11-08 15:51] LABS: AUTOMATED NEUTROPHIL # 11.3 TH/MM3 (1.8-7.7); BASOPHIL # 0.1 TH/MM3 (0-0.2); BASOPHIL % 0.4 % (0.0-2.0); HEMATOCRIT 32.6 % (39.0-51.0); HEMO FLAGS DIFF FINAL; LYMPH % 6.2 % (9.0-44.0); LYMPHOCYTE # 0.9 TH/MM3 (1.0-4.8); MEAN CELL VOLUME 95.7 FL (80.0-100.0); MEAN CORPUSCULAR HEMOGLOBIN 31.1 PG (27.0-34.0); MEAN CORPUSCULAR HGB CONC 32.5 % (32.0-36.0); MONO % 11.5 % (0.0-8.0); NEUT % 81.9 % (16.0-70.0); PLATELET COUNT 515 TH/MM3 (150-450); RED CELL DISTRIBUTION WIDTH 13.7 % (11.6-17.2); WHITE BLOOD COUNT 13.9 TH/MM3 (4.0-11.0)
[2016-11-08 16:04] LABS: ANION GAP 3 MEQ/L (5-15); AST (GOT) 61 U/L (15-37); BICARBONATE 34.7 MEQ/L (21.0-32.0); BLOOD UREA NITROGEN 34 MG/DL (7-18); CHLORIDE 95 MEQ/L (98-107); GLOMERULAR FILTRATION RATE 66 ML/MIN (>89); MAGNESIUM 2.4 MG/DL (1.5-2.5); POTASSIUM 5.4 MEQ/L (3.5-5.1); SODIUM (NA) 133 MEQ/L (136-145)
[2016-11-08 16:06] LABS: BLOOD, URINE NEG (NEG); GLUCOSE,URINE NEG (NEG); HYALINE CAST, URINE 17 /lpf (RARE); KETONE, URINE NEG (NEG); MUCUS URINE MANY /lpf (OCC); NITRITE,URINE NEG (NEG); SQUAMOUS EPITHELIAL CELL URINE <1 /hpf (0-5); URINE COLOR DARK-YELLOW (YELLW/STRAW)
[2016-11-08 16:07] LABS: APTT (PATIENT) 28.9 SEC (24.3-30.1); INTERNATIONAL NORMALIZED RATIO 1.2 RATIO; PROTHROMBIN TIME - PATIENT 13.5 SEC (9.8-11.6)
[2016-11-08 16:09] LABS: ALKALINE PHOSPHATASE 148 U/L (45-117); ALT (GPT) 94 U/L (12-78); TOTAL BILIRUBIN ADULT 0.4 MG/DL (0.2-1.0)
[2016-11-08 16:13] LABS: CREATINE KINASE 99 U/L (39-308)
[2016-11-08] MEDS ORDERED: IOHEXOL 350 MG/ML 10 ML VIAL (for RAD DIAG) IV ONE (17:01)
--- NOTE | 2016-11-08 17:04 | RADRPT ---
EXAM DATE/TIME: 11/08/2016 16:39 [facility] COMPARISON: CHEST SINGLE AP, November 08, 2016, 14:45. INDICATIONS : Short of breath. IV CONTRAST: 75 cc Omnipaque 350 (iohexol) IV RADIATION DOSE: 17.55 CTDIvol (mGy) MEDICAL HISTORY : Carcinoma, prostate. Cardiovascular disease SURGICAL HISTORY : None. ENCOUNTER: Initial ACUITY: 1 day PAIN SCALE: 0/10 LOCATION: Bilateral chest TECHNIQUE: Volumetric scanning of the chest was performed using a pulmonary embolism protocol MIP images were re constructed. Using automated exposure control and adjustment of the mA and/or kV according to patien t size, radiation dose was kept as low as reasonably achievable to obtain optimal diagnostic quality images. FINDINGS: PULMONARY ARTERIES: No filling defects are seen in the pulmonary arteries through the segmental level. LUNGS: There is no pneumothorax . There is mild consolidation left lower lobe. No concerning pulmonary nodul e is visualized. The left hemidiaphragm is elevated. PLEURAE: There is a small left pleural effusion. MEDIASTINUM: There is good visualization of the great vessels of the middle mediastinum. No evidence of mediastin al or hilar adenopathy/mass. The heart size is enlarged and there is a moderate pericardial effusion. MUSCULOSKELETAL: Within normal limits for patient age. MISCELLANEOUS: The visualized upper abdominal organs demonstrate no acute abnormality. CONCLUSION: 1. No evidence of pulmonary emboli. 2. Cardiomegaly with moderate pericardial effusion. 3. Elevation of the left hemidiaphragm. 4. Mild consolidation in the left lower lobe. Sean Wright MD on November 08, 2016 at 16:59 Board Certified Radiologist. This report was verified electronically.
[2016-11-08] MEDS ORDERED: AZITHROMYCIN INJ 500 MG in SODIUM CHLOR 0.9% 250 ML INJ 250 ML IV STA (17:05)
[2016-11-08] MEDS ORDERED: PIPERACIL-TAZO 4.5 GM PREMIX 100 ML IV STA (17:05)
--- NOTE | 2016-11-08 17:09 | PD ---
Data Data Last Documented VS Vital Signs Date Time Temp Pulse Resp B/P Pulse Ox O2 Delivery O2 Flow Rate FiO2 11/08/16 16:16 58 18 145/66 93 Nasal Cannula 3 11/08/16 14:02 97.4 Orders Complete Blood Count With Diff (11/08/16 14:26) Comprehensive Metabolic Panel (11/08/16 14:26) B-Type Natriuretic Peptide (11/08/16 14:26) D-Dimer (11/08/16 14:26) Act Partial Throm Time (Ptt) (11/08/16 14:26) Prothrombin Time / Inr (Pt) (11/08/16 14:26) Magnesium (Mg) (11/08/16 14:26) Ckmb (Isoenzyme) Profile (11/08/16 14:26) Troponin I (11/08/16 14:26) Ua Includes Microscopic (11/08/16 14:26) Blood Culture (11/08/16 14:26) Iv Access Insert/Monitor (11/08/16 14:26) Electrocardiogram (11/08/16 14:26) Ecg Monitoring (11/08/16 14:26) Oximetry (11/08/16 14:26) Oxygen Administration (11/08/16 14:26) Chest, Single Ap (11/08/16 14:26) Sodium Chloride 0.9% Flush (Ns Flush) (11/08/16 14:30) Ct Pulmonary Angiogram (11/08/16 14:26) Furosemide Inj (Lasix Inj) (11/08/16 15:30) Iohexol 350 Inj (Omnipaque 350 Inj) (11/08/16 17:01) Labs Laboratory Tests Test 11/08/16 11/08/16 15:08 15:37 White Blood Count 13.9 TH/MM3 Red Blood Count 3.40 MIL/MM3 Hemoglobin 10.6 GM/DL Hematocrit 32.6 % Mean Corpuscular Volume 95.7 FL Mean Corpuscular Hemoglobin 31.1 PG Mean Corpuscular Hemoglobin 32.5 % Concent Red Cell Distribution Width 13.7 % Platelet Count 515 TH/MM3 Mean Platelet Volume 7.4 FL Neutrophils (%) (Auto) 81.9 % Lymphocytes (%) (Auto) 6.2 % Monocytes (%) (Auto) 11.5 % Eosinophils (%) (Auto) 0.0 % Basophils (%) (Auto) 0.4 % Neutrophils # (Auto) 11.3 TH/MM3 Lymphocytes # (Auto) 0.9 TH/MM3 Monocytes # (Auto) 1.6 TH/MM3 Eosinophils # (Auto) 0.0 TH/MM3 Basophils # (Auto) 0.1 TH/MM3 CBC Comment DIFF FINAL Differential Comment Prothrombin Time 13.5 SEC Prothromb Time International 1.2 RATIO Ratio Activated Partial 28.9 SEC Thromboplast Time D-Dimer Quantitative (PE/DVT) 10.43 MG/L FEU Sodium Level 133 MEQ/L Potassium Level 5.4 MEQ/L Chloride Level 95 MEQ/L Carbon Dioxide Level 34.7 MEQ/L Anion Gap 3 MEQ/L Blood Urea Nitrogen 34 MG/DL Creatinine 1.07 MG/DL Estimat Glomerular Filtration 66 ML/MIN Rate Random Glucose 133 MG/DL Calcium Level 9.0 MG/DL Magnesium Level 2.4 MG/DL Total Bilirubin 0.4 MG/DL Aspartate Amino Transf 61 U/L (AST/SGOT) Alanine Aminotransferase 94 U/L (ALT/SGPT) Alkaline Phosphatase 148 U/L Total Creatine Kinase 99 U/L Troponin I LESS THAN 0.02 NG/ML B-Type Natriuretic Peptide 421 PG/ML Total Protein 7.6 GM/DL Albumin 3.3 GM/DL Urine Color DARK-YELLOW Urine Turbidity HAZY Urine pH 6.0 Urine Specific [place] 1.031 Urine Protein 100 mg/dL Urine Glucose (UA) NEG mg/dL Urine Ketones NEG mg/dL Urine Occult Blood NEG Urine Nitrite NEG Urine Bilirubin NEG Urine Urobilinogen 8.0 MG/DL Urine Leukocyte Esterase NEG Urine RBC 4 /hpf Urine WBC 3 /hpf Urine Squamous Epithelial <1 /hpf Cells Urine Hyaline Casts 17 /lpf Urine Mucus MANY /lpf MDM Supervised Visit with TANIYA: Yes Narrative Course I, Dr. Lind, have reviewed the advance practice practioner's documentation and am in agreement, met with the patient face to face, made the diagnosis, and the medical decision making was done by me. *My assessment and Findings: 86 year male with history of A. fib, HTN, COPD, PE , CAD status post single-vessel mini CABG [address] Dominguez here with 3-4 days of gradually worsening shortness of breath that became abruptly worse in the last 24 hours. Sats in the mid 80s even on his 1 L home O2. Decreased breath sounds throughout particularly in the left base. Occasional expiratory wheeze. He's noticed some increasing lower extremity edema. Denies a history of heart failure. Bradycardic with rates in the 50s, A. fib on monitor. Patient is having some postoperative pain, but overall pain is been improving, denies any new anginal symptoms. Differential includes CHF, pulmonary edema, volume overload, PE, ACS. EKG shows A. fib with slow ventricular response, left pleural effusion. Patient was given [address] pulmonary injury gram thankfully does not show any evidence of PE but does show cardiomegaly with moderate pericardial effusion, left lower lobe consolidation. Spoke with Dr. Dominguez, who agreed with above plan, antibiotics and patient will be admitted to medicine. Kate Lind MD Nov 08, 2016 17:09
--- NOTE | 2016-11-08 17:23 | PD.CAR.PN ---
CVT Progress Note Subjective/Hospital Course: 86/ male recent hx of chest pain eval by Dr Westfall and underwent nuclear stress test which was abnormal and underwent elective cardiac cath / revealing 95% LAD stenosis and preserved LV function PMH: HTN, GERD, COPD prostate CA surgery: 10/19 Minimally Invasive Coronary Artery Bypass Grafting x 1 (MIDCAB) with MONTERO to LAD / discharge 10/23/16 pt presented to ED today with significant dyspnea + lower ext edema CXR showed elevated left hemidiaphragm, prior hx , atelectasis / elevated WBC, concern for possible PNA US during his admission possible left effusion/ not enough fluid to drain at that time agree with diuresing, may need 2decho to re-eval EF agree with ABX Objective: GENERAL: dyspneic , on 02 , SKIN: Warm and dry. HEAD: Normocephalic. EYES: No scleral icterus. No injection or drainage. NECK: Supple, trachea midline. No JVD or lymphadenopathy. CARDIOVASCULAR: irregular rate and rhythm without murmurs, gallops, or rubs. + 2 edema lower ext RESPIRATORY: more diminished left lower lobe Breath sounds equal bilaterally. No accessory muscle use. GASTROINTESTINAL: Abdomen soft, non-tender, nondistended. MUSCULOSKELETAL: No cyanosis, or edema. BACK: Nontender without obvious deformity. No CVA tenderness. Vital Signs Date Time Temp Pulse Resp B/P Pulse Ox O2 Delivery O2 Flow Rate FiO2 11/08/16 16:16 58 18 145/66 93 Nasal Cannula 3 11/08/16 15:33 96 Nasal Cannula 4 11/08/16 15:33 97 28 98 Nasal Cannula 5 11/08/16 15:33 18 96 Nasal Cannula 3 11/08/16 14:24 62 24 136/64 96 Nasal Cannula 5 11/08/16 14:02 97.4 59 17 110/55 83 Labs: Laboratory Tests Test 11/08/16 11/08/16 15:08 15:37 White Blood Count 13.9 TH/MM3 (4.0-11.0) Red Blood Count 3.40 MIL/MM3 (4.50-5.90) Hemoglobin 10.6 GM/DL (13.0-17.0) Hematocrit 32.6 % (39.0-51.0) Mean Corpuscular Volume 95.7 FL (80.0-100.0) Mean Corpuscular Hemoglobin 31.1 PG (27.0-34.0) Mean Corpuscular Hemoglobin 32.5 % Concent (32.0-36.0) Red Cell Distribution Width 13.7 % (11.6-17.2) Platelet Count 515 TH/MM3 (150-450) Mean Platelet Volume 7.4 FL (7.0-11.0) Neutrophils (%) (Auto) 81.9 % (16.0-70.0) Lymphocytes (%) (Auto) 6.2 % (9.0-44.0) Monocytes (%) (Auto) 11.5 % (0.0-8.0) Eosinophils (%) (Auto) 0.0 % (0.0-4.0) Basophils (%) (Auto) 0.4 % (0.0-2.0) Neutrophils # (Auto) 11.3 TH/MM3 (1.8-7.7) Lymphocytes # (Auto) 0.9 TH/MM3 (1.0-4.8) Monocytes # (Auto) 1.6 TH/MM3 (0-0.9) Eosinophils # (Auto) 0.0 TH/MM3 (0-0.4) Basophils # (Auto) 0.1 TH/MM3 (0-0.2) CBC Comment DIFF FINAL Differential Comment Prothrombin Time 13.5 SEC (9.8-11.6) Prothromb Time International 1.2 RATIO Ratio Activated Partial 28.9 SEC Thromboplast Time (24.3-30.1) D-Dimer Quantitative (PE/DVT) 10.43 MG/L FEU (0.00-0.50) Sodium Level 133 MEQ/L (136-145) Potassium Level 5.4 MEQ/L (3.5-5.1) Chloride Level 95 MEQ/L (98-107) Carbon Dioxide Level 34.7 MEQ/L (21.0-32.0) Anion Gap 3 MEQ/L (5-15) Blood Urea Nitrogen 34 MG/DL (7-18) Creatinine 1.07 MG/DL (0.60-1.30) Estimat Glomerular Filtration 66 ML/MIN (>89) Rate Random Glucose 133 MG/DL (74-106) Calcium Level 9.0 MG/DL (8.5-10.1) Magnesium Level 2.4 MG/DL (1.5-2.5) Total Bilirubin 0.4 MG/DL (0.2-1.0) Aspartate Amino Transf 61 U/L (15-37) (AST/SGOT) Alanine Aminotransferase 94 U/L (12-78) (ALT/SGPT) Alkaline Phosphatase 148 U/L (45-117) Total Creatine Kinase 99 U/L (39-308) Troponin I LESS THAN 0.02 NG/ML (0.02-0.05) B-Type Natriuretic Peptide 421 PG/ML (0-100) Total Protein 7.6 GM/DL (6.4-8.2) Albumin 3.3 GM/DL (3.4-5.0) Urine Color DARK-YELLOW (YELLW/STRAW) Urine Turbidity HAZY (CLEAR) Urine pH 6.0 (5.0-8.5) Urine Specific [place] 1.031 (1.002-1.035) Urine Protein 100 mg/dL (NEG-TRACE) Urine Glucose (UA) NEG mg/dL (NEG) Urine Ketones NEG mg/dL (NEG) Urine Occult Blood NEG (NEG) Urine Nitrite NEG (NEG) Urine Bilirubin NEG (NEG) Urine Urobilinogen 8.0 MG/DL (LESS THAN 2.0) Urine Leukocyte Esterase NEG (NEG) Urine RBC 4 /hpf (0-3) Urine WBC 3 /hpf (0-5) Urine Squamous Epithelial <1 /hpf (0-5) Cells Urine Hyaline Casts 17 /lpf (RARE) Urine Mucus MANY /lpf (OCC) Result Diagram: 11/08/16 1508 11/08/16 1508 Telemetry: afib (1) Coronary artery disease (2) S/P CABG x 1 (3) COPD (chronic obstructive pulmonary disease) (4) Pleural effusion Plan: agree with diuresis (5) PNA (pneumonia) Plan: Ana Ballard Nov 08, 2016 17:23
[2016-11-08] MEDS ORDERED: NALOXONE HCL 0.4 MG/ML AMP IV PRN (17:45)
--- NOTE | 2016-11-08 17:53 | HHI.HP ---
[facility] Service [facility] Primary Care Physician Biju Gorman MD Admission Diagnosis Diagnoses: Chief Complaint: shortness of breath Travel History International Travel<30 Days: No Contact w/Intl Traveler <30 Da: No Traveled to Known Affected Are: No History of Present Illness 86 y/o male with a history of afib, htn, copd, PE, minimally invasive CABGx1 3 weeks ago, prostate cancer presented to the ED with complaints of shortness of breath and feeling weak. He states overnight he had low blood pressure, and he was having trouble breathing and the oxygen was not helping. Patient was on 1L NC at home. Patient denies any chest pain. Over the last few days he has been gaining weight and his legs are getting more and more swollen. He currently feels that he is having a moderate amount of shortness of breath. He does not think he is urinating as much as he needs to. Denies any pain with breathing. He states at home he was able to walk at home, and the [facility] nurse has been following every other day. Currently he admits that he is somewhat short of breath. Review of Systems Constitutional: COMPLAINS OF: Weight gain, DENIES: Fever, Chills Respiratory: COMPLAINS OF: Shortness of breath, DENIES: Cough, Sputum production Cardiovascular: COMPLAINS OF: Dyspnea on Exertion, Lower Extremity Edema, DENIES: Chest pain Gastrointestinal: DENIES: Constipation, Diarrhea, Nausea, Vomiting Genitourinary: DENIES: Dysuria Musculoskeletal: DENIES: Back pain, Neck pain Integumentary: DENIES: Rash Hematologic/lymphatic: DENIES: Lymphadenopathy Immunologic/allergic: DENIES: Urticaria Neurologic: COMPLAINS OF: Localized weakness Past Family Social History Past Medical History AFIB COPD HTN PE Prostate ca CAD Past Surgical History Cabgx1 Right hip replacement Reported Medications Reported Meds & Active Scripts Active Amiodarone (Amiodarone HCl) 400 Mg Tab 400 Mg PO BID 400 mg po bid x 3 days , then 200mg bid x 3 days , then 200mg daily Eliquis (Apixaban) 5 Mg Tab 5 Mg PO BID Oxygen tank (Oxygen) 1 Ea Tank 2 Liter ESPINOZA.CANULA CONTINUOUS Oxygen Concentrator Portable Gaseous 2 L/min via Nasal Cannula Continuous For 99 months Metoprolol Tartrate 50 Mg Tab 50 Mg PO BID Ipratropium Neb (Ipratropium [place]) 0.5 Mg/2.5 Ml Amp 0.5 Mg NEB Q4HR NEB PRN Albuterol Neb (Albuterol Sulfate) 2.5 Mg/3 Ml Neb 2.5 Mg NEB Q4HR NEB PRN Nebulizer Kit/Tubing/Mout (N/A) 1 Kit Kit 1 Kit .ROUTE DIRECTED Ventolin Hfa 18 GM Inh (Albuterol Sulfate) 90 Mcg/Act Aer 2 Puff INH Q4-6H PRN Thera M Plus (Multivitamins/Minerals Therapeutic) 1 Tab 1 Tab PO DAILY Dok (Docusate Sodium) 100 Mg Cap 100 Mg PO BID Atorvastatin (Atorvastatin Calcium) 20 Mg Tab 20 Mg PO HS Reported Serevent Diskus Inh (Salmeterol Xinafoate) 50 Mcg/Act Aero 50 Mcg INH BID Lisinopril 10 Mg Tab 10 Mg PO DAILY Aspirin DR (Aspirin) 81 Mg Tabdr 81 Mg PO DAILY Allergies: Coded Allergies: No Known Allergies (Verified , 05/12/15) Active Ordered Medications Current Medications Medications (Trade) Dose Ordered Sig/Darryl Route Start Time Stop Time Status Last Admin (NS Flush) 2 ml UNSCH PRN IVF 11/08/16 14:30 (Tylenol) 650 mg Q4H PRN PO 11/08/16 18:00 (Zofran Inj) 4 mg Q6H PRN IVP 11/08/16 18:00 (Milk Of Magnesia Liq) 30 ml Q12HR PRN PO 11/08/16 18:00 (Senokot) 17.2 mg Q12HR PRN PO 11/08/16 21:00 Naloxone HCl 0.4 mg 0.4 mg UNSCH PRN IV 11/08/16 17:45 Piperacillin Sod/ Tazobactam Sod 100 ml @ 200 mls/hr Q8H IV 11/09/16 01:00 (Zithromax Inj/ NS 250 ml Inj) 250 ml @ 250 mls/hr Q24H IV 11/09/16 18:00 (Lasix Inj) 20 mg BID IV PUSH 11/08/16 21:00 (Lopressor) 12.5 mg Q12HR PO 11/08/16 21:00 (Eliquis) 5 mg BID PO 11/08/16 21:00 (Ecotrin Ec) 81 mg DAILY PO 11/09/16 09:00 (Lipitor) 20 mg HS PO 11/08/16 21:00 (Prinivil) 10 mg DAILY PO 11/09/16 09:00 (Serevent Diskus Inh) 50 mcg BID INH 11/08/16 21:00 (Colace) 100 mg BID PO 11/08/16 21:00 Family History Patient denies any family history Social History Tobacco use: Quit 1980s Alcohol use: A few drinks a day Illicit drug use: Denies Physical Exam Vital Signs Vital Signs Date Time Temp Pulse Resp B/P Pulse Ox O2 Delivery O2 Flow Rate FiO2 11/08/16 16:16 58 18 145/66 93 Nasal Cannula 3 11/08/16 15:33 96 Nasal Cannula 4 11/08/16 15:33 97 28 98 Nasal Cannula 5 11/08/16 15:33 18 96 Nasal Cannula 3 11/08/16 14:24 62 24 136/64 96 Nasal Cannula 5 11/08/16 14:02 97.4 59 17 110/55 83 Physical Exam GENERAL: This is a well-nourished, well-developed patient, who is having a hard time breathing. Difficult to finish sentences SKIN: No rashes, ecchymoses or lesions. Cool and dry. HEAD: Atraumatic. Normocephalic. EYES: Pupils equal round and reactive. Extraocular motions intact. No scleral icterus. No injection or drainage. ENT: Nose without bleeding, purulent drainage or septal hematoma. Airway patent. NECK: Trachea midline. No JVD or lymphadenopathy. Supple, nontender, no meningeal signs. CARDIOVASCULAR: Bradycardic rate and afib rhythm without murmurs, gallops, or rubs. +2 edema bilateral lower extremities up to the knees. RESPIRATORY: Markedly diminished breath sounds from the bases to the midlung duarte morgan. No wheezes, rales, or rhonchi. GASTROINTESTINAL: Abdomen soft, non-tender, nondistended. No hepato-splenomegaly , or palpable masses. No guarding. MUSCULOSKELETAL: Lower extremities with 2+ edema. No joint tenderness noted. No calf tenderness. NEUROLOGICAL: Awake and alert. Motor and sensory grossly within normal limits. Normal speech. Laboratory Laboratory Tests Test 11/08/16 11/08/16 15:08 15:37 White Blood Count 13.9 Red Blood Count 3.40 Hemoglobin 10.6 Hematocrit 32.6 Mean Corpuscular Volume 95.7 Mean Corpuscular Hemoglobin 31.1 Mean Corpuscular Hemoglobin 32.5 Concent Red Cell Distribution Width 13.7 Platelet Count 515 Mean Platelet Volume 7.4 Neutrophils (%) (Auto) 81.9 Lymphocytes (%) (Auto) 6.2 Monocytes (%) (Auto) 11.5 Eosinophils (%) (Auto) 0.0 Basophils (%) (Auto) 0.4 Neutrophils # (Auto) 11.3 Lymphocytes # (Auto) 0.9 Monocytes # (Auto) 1.6 Eosinophils # (Auto) 0.0 Basophils # (Auto) 0.1 CBC Comment DIFF FINAL Differential Comment Prothrombin Time 13.5 Prothromb Time International 1.2 Ratio Activated Partial 28.9 Thromboplast Time D-Dimer Quantitative (PE/DVT) 10.43 Sodium Level 133 Potassium Level 5.4 Chloride Level 95 Carbon Dioxide Level 34.7 Anion Gap 3 Blood Urea Nitrogen 34 Creatinine 1.07 Estimat Glomerular Filtration 66 Rate Random Glucose 133 Calcium Level 9.0 Magnesium Level 2.4 Total Bilirubin 0.4 Aspartate Amino Transf 61 (AST/SGOT) Alanine Aminotransferase 94 (ALT/SGPT) Alkaline Phosphatase 148 Total Creatine Kinase 99 Troponin I LESS THAN 0.02 B-Type Natriuretic Peptide 421 Total Protein 7.6 Albumin 3.3 Urine Color DARK-YELLOW Urine Turbidity HAZY Urine pH 6.0 Urine Specific [place] 1.031 Urine Protein 100 Urine Glucose (UA) NEG Urine Ketones NEG Urine Occult Blood NEG Urine Nitrite NEG Urine Bilirubin NEG Urine Urobilinogen 8.0 Urine Leukocyte Esterase NEG Urine RBC 4 Urine WBC 3 Urine Squamous Epithelial <1 Cells Urine Hyaline Casts 17 Urine Mucus MANY Date/Time Procedure Status Source Growth 11/08/16 15:08 Aerobic Blood Culture Received Blood Line Pending 11/08/16 15:08 Anaerobic Blood Culture Received Blood Line Pending Result Diagram: 11/08/16 1508 11/08/16 1508 Imaging Last Impressions Chest X-Ray 11/08/16 1426 Signed Impressions: Service Date/Time: Tuesday, November 08, 2016 14:45 - CONCLUSION: 1. Stable elevation of the left hemidiaphragm with left basilar atelectasis. 2. Possible associated left-sided effusion. Right lung remains clear. 3. Marked cardiomegaly without failure. Pal Hare MD Assessment and Plan Problem List: (1) Acute respiratory failure ICD Code: J96.00 Status: Acute (2) Hospital acquired PNA ICD Code: J18.9 Status: Acute (3) CHF exacerbation ICD Code: I50.9 Status: Acute (4) COPD (chronic obstructive pulmonary disease) ICD Code: J44.9 Status: Chronic (5) Afib ICD Code: I48.91 Status: Chronic (6) Hypertension ICD Code: I10 Status: Chronic Assessment and Plan 86 y/o male with a history of afib, htn, copd, PE, CABGx1 3 weeks ago, prostate cancer presented to the ED with complaints of shortness of breath. Probable Hospital acquired PNA with leukocytosis vs worsening pleural effusion Chest x-ray shows images reviewed, there is elevation of the left hemidiaphragm with left basilar atelectasis. Possible associated left-sided effusion. Marked cardiomegaly. -Zosyn and Zithromax IV -Pneumococcal and legionella urinary antigen ordered -Albuterol nebs prn -O2 as needed -Blood cultures pending Acute respiratory failure, increasing oxygen demand, patient is tachypneic with increased work of breathing. Recent CABG. - Supplemental oxygen, breathing treatments as needed -Transfer patient to ICU for closer monitoring -Will consult inspector machined parts if needed -Cont antibiotics as above -Consult pulmonology. Patient with history of COPD, Patient known to Dr. Silva -Incentive spirometer Q1hr while awake CHF exacerbation, +2 pitting edema in bilateral lower extremities, s/p cabg BNP 421, CT chest shows small left pleural effusion -Lasix IV 20mg BID -BNP in AM -CT surgery, Dr. Dominguez will be following - Repeat a 2-D echocardiogram. Hyperkalemia, potassium 5.4 -Lasix was given for fluid overload -Recheck labs in AM, may need Kayexalate COPD, chronic, not in exacerbation -Albuterol nebs prn -Cont home inhaler salmeterol disk HTN, Chronic. Patient reports hypotension at home -decrease metoprolol to 12.5 BID, HR 58 on admission -Decrease lisinopril to 5 mg daily. Continue to monitor Afib, chronic, controlled EKG shows afib with slow ventricular response. Patient reported hypotension at home. -Hold amiodarone for now, HR 58. Metoprolol decreased to 12.5 mg. -Cont Eliquis and ASA -Monitor tele DVT prophylaxis: Eliquis Patient wishes to be a DNR Written by CHERRI Bartholomew acting as scribe for [Jluis] on 11/08/16 at 17:55. This note was transcribed by scribe [CHERRI Bartholomew]. I, Dr. Km Bazzi personally performed the history, physical exam, and medical decision making; and confirmed the accuracy of the information in the transcribed note. Authenticated by Dr. Km Bazzi on 11/08/16 at 1800. Code Status DNR Discussed Condition With Patient, RN and ED physician Physician Certification 2 Midnight Certification Type: Admission for Inpatient Services Order for Inpatient Services The services are ordered in accordance with Medicare regulations or non- Medicare payer requirements, as applicable. In the case of services not specified as inpatient-only, they are appropriately provided as inpatient services in accordance with the 2-midnight benchmark. Estimated LOS (days): 2 days is the estimated time the patient will need to remain in the hospital, assuming treatment plan goals are met and no additional complications. Post-Hospital Plan: Home Candy Hood Nov 08, 2016 17:53 Km Bazzi MD Nov 08, 2016 18:53
[2016-11-08] MEDS ORDERED: ONDANSETRON HCL 4 MG/2 ML VIAL IVP PRN (18:00)
[2016-11-08] MEDS ORDERED: ACETAMINOPHEN 325 MG TAB PO PRN (18:00)
[2016-11-08] MEDS ORDERED: MAGNESIUM HYDROXIDE SUSP 30 ML CUP PO PRN (18:00)
[2016-11-08] MEDS ORDERED: RESP: ALBUTEROL 2.5 MG/IPRATROPIUM 0.5 MG NEB (PRN) NEB (18:00)
[2016-11-08] MEDS ORDERED: RESP: ALBUTEROL 2.5 MG/3 ML NEB (PRN) NEB (18:00)
[2016-11-08] MEDS ORDERED: RESP: ALBUTEROL 2.5 MG/IPRATROPIUM 0.5 MG NEB (SCH) ONE (19:53)
[2016-11-08] MEDS ORDERED: APIXABAN 5 MG TABLET PO SCH (21:00)
[2016-11-08] MEDS: METOPROLOL TARTRATE 25 MG TAB PO SCH (21:00)
[2016-11-08] MEDS ORDERED: SENNOSIDES 8.6 MG TAB PO PRN (21:00)
[2016-11-08] MEDS: SALMETEROL XINAFOATE 50 MCG DISKUS INH SCH (21:02)
[2016-11-08] MEDS: DOCUSATE SODIUM 100 MG CAP PO SCH (21:02)
[2016-11-08] MEDS: FUROSEMIDE 20 MG/2 ML VIAL IV PUSH SCH (21:02)
[2016-11-08] MEDS: ATORVASTATIN 20 MG TAB PO SCH (21:03)
[2016-11-08] MEDS ORDERED: RESP: ALBUTEROL 2.5 MG/IPRATROPIUM 0.5 MG NEB (SCH) NEB (22:00)
[2016-11-09] VITALS (17 sets, daily range): BP systolic 101–133; BP diastolic 53–74; PULSE 66–113; RESP 12–36; TEMP 97.8–99.9; O2SAT 92–100
[2016-11-09] MEDS: PIPERACIL-TAZO 4.5 GM PREMIX 100 ML IV SCH ×4 (01:12→20:13)
[2016-11-09] MEDS ORDERED: FUROSEMIDE 40 MG/4 ML VIAL IV PUSH ONE (02:15)
[2016-11-09 04:21] LABS: AUTOMATED NEUTROPHIL # 9.7 TH/MM3 (1.8-7.7); BASOPHIL # 0.1 TH/MM3 (0-0.2); BASOPHIL % 0.5 % (0.0-2.0); EOSINOPHIL % 0.4 % (0.0-4.0); HEMATOCRIT 29.8 % (39.0-51.0); LYMPH % 8.3 % (9.0-44.0); MEAN CELL VOLUME 95.1 FL (80.0-100.0); MEAN CORPUSCULAR HEMOGLOBIN 32.2 PG (27.0-34.0); MEAN CORPUSCULAR HGB CONC 33.8 % (32.0-36.0); MONO % 11.9 % (0.0-8.0); NEUT % 78.9 % (16.0-70.0); PLATELET COUNT 481 TH/MM3 (150-450); RED BLOOD COUNT 3.14 MIL/MM3 (4.50-5.90); RED CELL DISTRIBUTION WIDTH 14.4 % (11.6-17.2); WHITE BLOOD COUNT 12.3 TH/MM3 (4.0-11.0)
[2016-11-09 04:28] LABS: HEMO FLAGS AUTO DIFF
[2016-11-09 05:08] LABS: ALT (GPT) 71 U/L (12-78); ANION GAP 3 MEQ/L (5-15); AST (GOT) 41 U/L (15-37); BICARBONATE 38.2 MEQ/L (21.0-32.0); BLOOD UREA NITROGEN 30 MG/DL (7-18); CHLORIDE 96 MEQ/L (98-107); GLOMERULAR FILTRATION RATE 75 ML/MIN (>89); POTASSIUM 4.8 MEQ/L (3.5-5.1); SODIUM (NA) 137 MEQ/L (136-145)
[2016-11-09 05:10] LABS: ALKALINE PHOSPHATASE 104 U/L (45-117); TOTAL BILIRUBIN ADULT 0.3 MG/DL (0.2-1.0)
[2016-11-09 05:23] LABS: BANDS 4 % (0-6); METAMYELOCYTES 4 % (0-1); NEUTROPHIL # MANUAL DIFF 10.6 TH/MM3 (1.8-7.7); POLYS (SEG NEUTROPHILS) 78 % (16-70); WBC DIFF SAMPLE 100
[2016-11-09 05:24] LABS: PLATELET ESTIMATE SMEAR HIGH (NORMAL); PLATELET MORPHOLOGY NORMAL (NORMAL)
[2016-11-09 05:25] LABS: SCAN/DIFF FINAL DIFF MANUAL
[2016-11-09] MEDS ORDERED: LORazepam 2 MG/ML VIAL IV ONE (07:45)
--- NOTE | 2016-11-09 08:25 | HHI.PR ---
Subjective Remarks Patient's respiratory status worsened overnight. He was put on Bipap. I was notified by RN this morning, he became very agitated, removing the mask repeatedly. He also pulled at his Broderick catheter which resulted in hematuria. Ativan was ordered for agitation. He is now sedated, tolerating Bipap.. DW with RN Objective Vitals Vital Signs Date Time Temp Pulse Resp B/P Pulse Ox O2 Delivery O2 Flow Rate FiO2 11/09/16 07:00 Bi-Pap 50 11/09/16 06:00 69 11/09/16 04:00 68 11/09/16 04:00 97.8 68 24 120/55 96 11/09/16 02:35 Bi-Pap 50 11/09/16 02:25 Bi-Pap 35 11/09/16 02:20 92 35 11/09/16 02:00 98 Nasal Cannula 3.00 11/09/16 02:00 69 11/09/16 00:30 98.2 66 36 133/60 99 11/09/16 00:30 66 11/09/16 00:30 96 Nasal Cannula 3.00 11/08/16 22:54 81 24 118/58 98 Nasal Cannula 3 11/08/16 19:31 59 26 125/58 99 Nasal Cannula 3 11/08/16 18:23 61 18 121/65 99 Nasal Cannula 3 11/08/16 16:16 58 18 145/66 93 Nasal Cannula 3 11/08/16 16:16 93 Nasal Cannula 3.00 11/08/16 15:33 96 Nasal Cannula 4 11/08/16 15:33 97 28 98 Nasal Cannula 5 11/08/16 15:33 18 96 Nasal Cannula 3 11/08/16 14:24 62 24 136/64 96 Nasal Cannula 5 11/08/16 14:02 97.4 59 17 110/55 83 I/O 11/08/16 11/08/16 11/08/16 11/09/16 11/09/16 11/09/16 07:00 15:00 23:00 07:00 15:00 23:00 Intake Total 103 ml Output Total 550 ml 2100 ml Balance -550 ml -1997 ml Intake Oral 0 ml IV Total 103 ml Output Urine Total 550 ml 2100 ml # Voids 2 Result Diagram: 11/09/1640411/09/16404 Imaging Last Impressions Chest X-Ray 11/09/16 0000 Signed Impressions: Service Date/Time: Wednesday, November 09, 2016 07:56 - CONCLUSION: 1. Stable chest x-ray with enlargement of the cardiac silhouette. Yesterday's CT scan documented this to be secondary to an enlarged heart as well as a pericardial effusion. 2. Stable elevation of the left hemidiaphragm with atelectasis and consolidation at the left lung base and a small left pleural effusion. Neri Chavez MD CT Angiography 11/08/16 1426 Signed Impressions: Service Date/Time: Tuesday, November 08, 2016 16:39 - CONCLUSION: 1. No evidence of pulmonary emboli. 2. Cardiomegaly with moderate pericardial effusion. 3. Elevation of the left hemidiaphragm. 4. Mild consolidation in the left lower lobe. Sean Wright MD Objective Remarks CONSTITUTIONAL/GENERAL: Elderly male, sedated. SKIN: No jaundice, rashes, or concerning lesions. Not diaphoretic. HEAD: Atraumatic. Normocephalic. NECK: Trachea midline. CARDIOVASCULAR: Normal rate and irregular rhythm without murmurs. RESPIRATORY/CHEST: On BiPAP. Very poor air movement. Some diffuse rhonchi GASTROINTESTINAL: Abdomen soft, non-distended. Bowel sounds present. MUSCULOSKELETAL: Extremities with 2+ NEUROLOGICAL: Sedated. Move extremities spontaneously PSYCHIATRIC: Calm A/P Problem List: (1) Acute respiratory failure ICD Code: J96.00 Status: Acute (2) Hospital acquired PNA ICD Code: J18.9 Status: Acute (3) CHF exacerbation ICD Code: I50.9 Status: Acute (4) COPD (chronic obstructive pulmonary disease) ICD Code: J44.9 Status: Chronic (5) Afib ICD Code: I48.91 Status: Chronic (6) Hypertension ICD Code: I10 Status: Chronic Assessment and Plan 86 y/o male with a history of afib, htn, copd, PE, CABGx1 3 weeks ago, prostate cancer admitted for respiratory failure. Acute respiratory failure, Recent CABG. breathing status worsen overnight. On BiPAP. - Supplemental oxygen, breathing treatments as needed - Start Solu-Medrol 40 mg IV every 6 hours. - Cont antibiotics as above - Pulmonology consulted. Patient with history of COPD, Patient known to Dr. Silva - Repeat chest x-ray this morning is stable. - Obtain blood gas - He is at high risk for worsening. However yesterday made it clear, he wanted to have DNR status. DW his at length. She is hoping he gets better. Probable Hospital acquired PNA with leukocytosis and/or heart failure with worsening pleural effusion Chest x-ray images and report reviewed, there is elevation of the left hemidiaphragm with left basilar atelectasis. Possible associated left-sided effusion. Marked cardiomegaly. -Continue Zosyn and Zithromax IV -Pneumococcal and legionella urinary antigen ordered -Albuterol nebs prn -Blood cultures pending Agitation: Interfering with treatment. Patient kept removing bipap and pulled at his Broderick. - Ativan PRN is helping. Cause some sedation. CHF exacerbation, +2 pitting edema in bilateral lower extremities, s/p cabg BNP 421, 583 CT chest shows small left pleural effusion -CT surgery, Dr. Dominguez following - Repeat a 2-D echocardiogram. - Consult the patient's medical practice assistant Dr. Westfall. Hyperkalemia, potassium 5.4 on admission: Resolved HTN, Chronic. Patient reports hypotensive episodes at home -Hold metoprolol, HR 58 on admission -Hold lisinopril. Continue to monitor Afib, chronic, controlled EKG shows afib with slow ventricular response. Patient reported hypotension at home. -Hold amiodarone for now, HR 58. Metoprolol on hold -Cont Eliquis and ASA -Monitor tele DVT prophylaxis: SCDs, Eliquis, on hold today for hematuria Patient status is DNR per his request on admission. Discharge Planning Keep in ICU Km Bazzi MD Nov 09, 2016 08:25
[2016-11-09] MEDS: FUROSEMIDE 20 MG/2 ML VIAL IV PUSH SCH ×2 (08:26→20:13)
[2016-11-09] MEDS ORDERED: LORazepam 2 MG/ML VIAL IV PUSH PRN (08:30)
--- NOTE | 2016-11-09 08:43 | RADRPT ---
EXAM DATE/TIME: 11/09/2016 07:56 [facility] COMPARISON: CT PULMONARY ANGIOGRAM, November 08, 2016, 16:39. CHEST SINGLE AP, November 08, 2016, 14:45. INDICATIONS : Dyspnea. Left lower lobe pneumonia. MEDICAL HISTORY : Unobtainable. SURGICAL HISTORY : Unobtainable. ENCOUNTER: Subsequent ACUITY: 2 days PAIN SCORE: 0/10 LOCATION: Bilateral chest FINDINGS: Portable AP view of the chest demonstrates stable enlargement of the cardiac silhouette. There is chr onic elevation left hemidiaphragm and pleural-parenchymal opacity at the left base. There is atelecta sis at the right lung base. No pneumothorax is visualized. The bones and soft tissues demonstrate no acute finding. CONCLUSION: 1. Stable chest x-ray with enlargement of the cardiac silhouette. Yesterday's CT scan documented this to be secondary to an enlarged heart as well as a pericardial effusion. 2. Stable elevation of the left hemidiaphragm with atelectasis and consolidation at the left lung bas e and a small left pleural effusion. Neri Chavez MD on November 09, 2016 at 8:39 Board Certified Radiologist. This report was verified electronically.
[2016-11-09] MEDS: LISINOPRIL 5 MG TAB PO SCH (09:00)
[2016-11-09] MEDS: DOCUSATE SODIUM 100 MG CAP PO SCH ×2 (09:00→20:13)
[2016-11-09] MEDS: SALMETEROL XINAFOATE 50 MCG DISKUS INH SCH ×2 (09:00→20:14)
[2016-11-09] MEDS: ASPIRIN EC 81 MG TABEC PO SCH (09:00)
[2016-11-09] MEDS: METOPROLOL TARTRATE 25 MG TAB PO SCH (09:00)
[2016-11-09] MEDS ORDERED: LISINOPRIL 10 MG TAB PO SCH (09:00)
--- NOTE | 2016-11-09 09:01 | EKG ---
Date Performed: 11/08/2016 Time Performed: 14:36:23 PTAGE: 86 years EKG: ATRIAL FIBRILLATION WITH SLOW VENTRICULAR RESPONSE NONSPECIFIC T-WAVE ABNORMALITY ABNORMAL ECG PREVIOUS TRACING : 10/20/2016 21.27 Compared to previous tracing, heart rate has slowed. DOCTOR: Boogie Viera Interpretating Date/Time 11/09/2016 09:00:26
[2016-11-09] MEDS: methylPREDNISolone SOD SUCC 40 MG/1 ML VIAL IV PUSH SCH ×3 (09:43→20:13)
[2016-11-09 10:44] LABS: BLOOD GAS BASE EXCESS 13.5 mmol/L (-2-2); BLOOD GAS CARBOXYHEMOGLOBIN 1.1 % (0-4); BLOOD GAS HCO3 41 mmol/L (22-26); BLOOD GAS METHEMOGLOBIN 0.6 % (0-2); BLOOD GAS O2 HGB SATURATION 96 % (90-100); BLOOD GAS OXYGEN CONTENT 19.8 Vol % (12.0-20.0); BLOOD GAS PCO2 105 mmHg (38-42); BLOOD GAS PO2 122 mmHg (61-120); BLOOD GAS TOTAL HGB 14.5 G/DL (12.0-16.0); TEMP CORR TO 98.6
[2016-11-09 10:45] LABS: CRITICAL VALUE YES; DRAW SITE LT RADIAL; FIO2 50 %; NUMBER OF ARTERIAL PUNCTURES 1; OXYGEN DEVICE BIPAP; STAT NO; ULNAR PULSE PRESENT; VENT SETTINGS IPAP 15/EPAP 5
--- NOTE | 2016-11-09 11:52 | PD.CONS ---
Consult Service Palliative Care Consult Requested By Dr Bazzi . Primary Care Physician Biju Gorman MD Reason for Consultation a. To assist with evaluation and management of symptoms including: dyspnea b. To assist medical decision maker(s) with: better understanding of current medical conditions; weighing benefits/burdens of medical treatment options; making medical treatment decisions. HPI History of Present Illness This 86 yr old male presented to the ED on 11/08/26, with C/o d ays of worsening SOB. He is s/p minimally invasive CABG x1 vessel, 3 weeks ago (10/19/16--DC 10/23). He is chronically on 1 L O2 at home. Day of presentation he woke up very short of breath with difficulty breathing. reported O2 sats previously in the high 80s and low 90s. Has had ongoing swelling bilateral lower extremities. Did receive some Lasix immediately following surgery. He denied symptoms of fever, chills, cough, chest pain, abdominal pain nausea or vomiting. He apparently was supposed to follow-up with vascular surgery 11/09. Other medical history significant for atrial fibrillation, hypertension, COPD, PE, CAD. * CTA negative for PE. + cardiomegaly w effusion, consolidation LLL. CXR = Elevated left hemidiaphragm with left basilar atelectasis, questionable left effusion. Right lung clear. Marked cardiomegaly without failure per radiology read. Pt was initiated on IV Zosyn, azithromycin for was discussed with patient CV surgeon Dr. Dominguez, who requested admission for further evaluation and management. CV consulted. WBC 13.9. Troponin less than 0.02. BNP 421. Potassium 5.4. BUN 34/creatine 1.07. Huang culture sent. * Continue diuresis per CV, CV also notes during last admission ultrasound notable for possible left effusion though not enough to drain at that time. Cultures= no growth 1 day. Patient respiratory status worsening overnight through 11/09, he was placed on BiPAP. Having worsening agitation decreased mental status in the morning. Requiring some sedation with Ativan. Also pulled his Broderick catheter resulting in hematuria. Medical attending previously scoped with patient regarding resuscitation status and patient elected DNR. Palliative Care was consulted to assist with clarification of goals of treatment. Patient seen in ICU with Dr. Bazzi medical attending present for part of family conference. [ dual visit with Anjali HARLEY ] patient is lethargic to obtunded. Unable to participate in conversations. quality systems technician at bedside completing echocardiogram, limited CV exam at time of my exam due to echocardiogram in process. Function/Cognitive Trajectory Lives at home with spouse, independent with all ADLs, most recently required mild home health for check-in is following minimally invasive CABG procedure 10/19. No cognitive or functional limitations otherwise per family. Review of Systems ROS Limitations: Clinical Condition (on BiPAP), Altered Mental Status, Speech Impaired Constitutional: DENIES: Fever, Change in appetite, Pain, Generalized weakness Respiratory: COMPLAINS OF: Shortness of breath, DENIES: Cough, Sputum production Cardiovascular: COMPLAINS OF: Dyspnea on Exertion, Lower Extremity Edema ( ongoing to the ankles since surgery. Weeks ago, worsening to lower legs past 2 3 days.) Gastrointestinal: DENIES: Abdominal pain, Constipation, Nausea Musculoskeletal: DENIES: Joint pain, Muscle aches, Back pain, Neck pain Integumentary: DENIES: Rash Neurologic: DENIES: Headache Psychiatric: DENIES: Anxiety, Confusion Past Family Social History Coded Allergies: No Known Allergies (Verified , 05/12/15) Past Medical History Atrial fibrillation COPD Hypertension PE Prostate cancer CAD . Past Surgical History Cabgx1 Right hip replacement Reported Medications Amiodarone (Amiodarone HCl) 400 Mg Tab 400 Mg PO BID 400 mg po bid x 3 days , then 200mg bid x 3 days , then 200mg daily Eliquis (Apixaban) 5 Mg Tab 5 Mg PO BID Oxygen tank (Oxygen) 1 Ea Tank 2 Liter ESPINOZA.CANULA CONTINUOUS Oxygen Concentrator Portable Gaseous 2 L/min via Nasal Cannula Continuous For 99 months Metoprolol Tartrate 50 Mg Tab 50 Mg PO BID Ipratropium Neb (Ipratropium Atkins) 0.5 Mg/2.5 Ml Amp 0.5 Mg NEB Q4HR NEB PRN Albuterol Neb (Albuterol Sulfate) 2.5 Mg/3 Ml Neb 2.5 Mg NEB Q4HR NEB PRN Nebulizer Kit/Tubing/Mout (N/A) 1 Kit Kit 1 Kit .ROUTE DIRECTED Ventolin Hfa 18 GM Inh (Albuterol Sulfate) 90 Mcg/Act Aer 2 Puff INH Q4-6H PRN Thera M Plus (Multivitamins/Minerals Therapeutic) 1 Tab 1 Tab PO DAILY Dok (Docusate Sodium) 100 Mg Cap 100 Mg PO BID Atorvastatin (Atorvastatin Calcium) 20 Mg Tab 20 Mg PO HS Serevent Diskus Inh (Salmeterol Xinafoate) 50 Mcg/Act Aero 50 Mcg INH BID Lisinopril 10 Mg Tab 10 Mg PO DAILY Aspirin DR (Aspirin) 81 Mg Tabdr 81 Mg PO DAILY . Current Medications Medications (Trade) Dose Ordered Sig/Darryl Route Start Time Stop Time Status Last Admin (NS Flush) 2 ml UNSCH PRN IVF 11/08/16 14:30 (Tylenol) 650 mg Q4H PRN PO 11/08/16 18:00 (Zofran Inj) 4 mg Q6H PRN IVP 11/08/16 18:00 (Milk Of Magnesia Liq) 30 ml Q12HR PRN PO 11/08/16 18:00 (Senokot) 17.2 mg Q12HR PRN PO 11/08/16 21:00 Naloxone HCl 0.4 mg 0.4 mg UNSCH PRN IV 11/08/16 17:45 (Zithromax Inj/ NS 250 ml Inj) 250 ml @ 250 mls/hr Q24H IV 11/09/16 18:00 (Lasix Inj) 20 mg BID IV PUSH 11/08/16 21:00 11/09/16 08:26 (Lopressor) 12.5 mg Q12HR PO 11/08/16 21:00 Hold (Eliquis) 5 mg BID PO 11/08/16 21:00 Hold 11/08/16 21:02 (Ecotrin Ec) 81 mg DAILY PO 11/09/16 09:00 (Lipitor) 20 mg HS PO 11/08/16 21:00 11/08/16 21:03 (Serevent Diskus Inh) 50 mcg BID INH 11/08/16 21:00 11/08/16 21:02 (Colace) 100 mg BID PO 11/08/16 21:00 11/08/16 21:02 (Prinivil) 5 mg DAILY PO 11/09/16 09:00 Methylprednisolone Sodium Succinate 40 mg 40 mg Q6H IV PUSH 11/09/16 09:00 11/09/16 09:43 (Zosyn 4.5 Gm Premix) 100 ml @ 200 mls/hr Q6H IV 11/09/16 14:00 (Ativan Inj) 1 mg Q4H PRN IV PUSH 11/09/16 08:30 11/09/16 10:36 Family History Patient denies any family history per EMR Substance Use Tobacco: Quit smoking 1980s Alcohol: Drinks 23 glasses of wine nightly-- last drink 04/2015? Prescription med abuse: None reported Illicits: None reported Psychosocial History Lives locally with his . He is supported by 2 adult children who live out of the area. Very active, prior to recent cardiovascular surgery played golf about 4 times a week, 18 holes. Spiritual/Cultural Factors No particular faith affiliation does not want student success coach support per family Living Will: Never completed Health Care Surrogate: Never completed Durable Power of Nutrition Technician: Never completed Today's verbally stated goals: Patient states though they have no written advanced directives she and her spoken many times regarding their wishes. She feels at this time he would want to proceed with ventilation and any other aggressive measures measures in attempt to try to get better, though also indicates that he would not want stay on machines for a prolonged amount of time if he was not improving. Ethical and Legal Issues Patient does not have advanced directives or health care surrogate.per [place] statutes would be legal decision maker. Physical Exam Vital Signs Date Time Temp Pulse Resp B/P Pulse Ox O2 Delivery O2 Flow Rate FiO2 11/09/16 10:00 81 11/09/16 08:00 98.5 81 16 117/62 100 11/09/16 08:00 81 11/09/16 07:00 Bi-Pap 50 11/09/16 06:00 69 11/09/16 04:00 68 11/09/16 04:00 97.8 68 24 120/55 96 11/09/16 02:35 Bi-Pap 50 11/09/16 02:25 Bi-Pap 35 11/09/16 02:20 92 35 11/09/16 02:00 98 Nasal Cannula 3.00 11/09/16 02:00 69 11/09/16 00:30 98.2 66 36 133/60 99 11/09/16 00:30 66 11/09/16 00:30 96 Nasal Cannula 3.00 11/08/16 22:54 81 24 118/58 98 Nasal Cannula 3 11/08/16 19:31 59 26 125/58 99 Nasal Cannula 3 11/08/16 18:23 61 18 121/65 99 Nasal Cannula 3 11/08/16 16:16 58 18 145/66 93 Nasal Cannula 3 11/08/16 16:16 93 Nasal Cannula 3.00 11/08/16 15:33 96 Nasal Cannula 4 11/08/16 15:33 97 28 98 Nasal Cannula 5 11/08/16 15:33 18 96 Nasal Cannula 3 11/08/16 14:24 62 24 136/64 96 Nasal Cannula 5 11/08/16 14:02 97.4 59 17 110/55 83 11/08/16 11/09/16 19:00 07:00 Intake Total 103 ml Output Total 550 ml 2100 ml Balance -550 ml -1997 ml Intake Oral 0 ml IV Total 103 ml Output Urine Total 550 ml 2100 ml # Voids 2 Exam CONSTITUTIONAL/GENERAL: This is an adequately nourished patient, on BiPAP mask, no apparent distress TUBES/LINES/DRAINS: Peripheral IV right upper extremity, Broderick catheter, BiPAP mask SKIN: No jaundice, rashes, or lesions. No wounds seen anteriorly. Skin temperature appropriate. HEAD: Atraumatic. Normocephalic. EYES: Eyes closed did not force open for exam ENT: Unable to visualize oropharynx or nasal passages due to BiPAP mask. NECK: Trachea midline. Supple, nontender. CARDIOVASCULAR: Atrial fib noted on bedside monitor. Unable to auscultate heart sounds 2-D echo in process. No JVD. Peripheral pulses symmetric. RESPIRATORY/CHEST: Symmetric, unlabored respirations via BiPAP. Clear to auscultation, decreased air movement. Unable to listen to left side due to 2-D echo. GASTROINTESTINAL: Abdomen soft, no apparent tenderness, nondistended. No hepato- splenomegaly, or palpable masses. Bowel sounds present. GENITOURINARY: Without palpable bladder distension. Broderick catheter in place- draining dark brown red urine. NEUROLOGICAL: Lethargic, minimally sisters to exam. Does localize to touch on all 4 extremities and moves all 4 extremities. PSYCHIATRIC: No obvious anxiety/depression-lethargicsedated, limited exam. Diagnostic Tests Laboratory Laboratory Tests Test 11/08/16 11/08/16 11/09/16 11/09/16 15:08 15:37 00:40 04:05 White Blood Count 13.9 TH/MM3 12.3 TH/MM3 (4.0-11.0) (4.0-11.0) Red Blood Count 3.40 MIL/MM3 3.14 MIL/MM3 (4.50-5.90) (4.50-5.90) Hemoglobin 10.6 GM/DL 10.1 GM/DL (13.0-17.0) (13.0-17.0) Hematocrit 32.6 % 29.8 % (39.0-51.0) (39.0-51.0) Mean Corpuscular Volume 95.7 FL 95.1 FL (80.0-100.0) (80.0-100.0) Mean Corpuscular Hemoglobin 31.1 PG 32.2 PG (27.0-34.0) (27.0-34.0) Mean Corpuscular Hemoglobin 32.5 % 33.8 % Concent (32.0-36.0) (32.0-36.0) Red Cell Distribution Width 13.7 % 14.4 % (11.6-17.2) (11.6-17.2) Platelet Count 515 TH/MM3 481 TH/MM3 (150-450) (150-450) Mean Platelet Volume 7.4 FL 7.1 FL (7.0-11.0) (7.0-11.0) Neutrophils (%) (Auto) 81.9 % 78.9 % (16.0-70.0) (16.0-70.0) Lymphocytes (%) (Auto) 6.2 % 8.3 % (9.0-44.0) (9.0-44.0) Monocytes (%) (Auto) 11.5 % 11.9 % (0.0-8.0) (0.0-8.0) Eosinophils (%) (Auto) 0.0 % (0.0-4.0) 0.4 % (0.0-4.0) Basophils (%) (Auto) 0.4 % (0.0-2.0) 0.5 % (0.0-2.0) Neutrophils # (Auto) 11.3 TH/MM3 9.7 TH/MM3 (1.8-7.7) (1.8-7.7) Lymphocytes # (Auto) 0.9 TH/MM3 1.0 TH/MM3 (1.0-4.8) (1.0-4.8) Monocytes # (Auto) 1.6 TH/MM3 1.5 TH/MM3 (0-0.9) (0-0.9) Eosinophils # (Auto) 0.0 TH/MM3 0.0 TH/MM3 (0-0.4) (0-0.4) Basophils # (Auto) 0.1 TH/MM3 0.1 TH/MM3 (0-0.2) (0-0.2) CBC Comment DIFF FINAL AUTO DIFF Differential Comment FINAL DIFF MANUAL Prothrombin Time 13.5 SEC (9.8-11.6) Prothromb Time International 1.2 RATIO Ratio Activated Partial 28.9 SEC Thromboplast Time (24.3-30.1) D-Dimer Quantitative (PE/DVT) 10.43 MG/L FEU (0.00-0.50) Sodium Level 133 MEQ/L 137 MEQ/L (136-145) (136-145) Potassium Level 5.4 MEQ/L 4.8 MEQ/L (3.5-5.1) (3.5-5.1) Chloride Level 95 MEQ/L 96 MEQ/L (98-107) (98-107) Carbon Dioxide Level 34.7 MEQ/L 38.2 MEQ/L (21.0-32.0) (21.0-32.0) Anion Gap 3 MEQ/L (5-15) 3 MEQ/L (5-15) Blood Urea Nitrogen 34 MG/DL (7-18) 30 MG/DL (7-18) Creatinine 1.07 MG/DL 0.96 MG/DL (0.60-1.30) (0.60-1.30) Estimat Glomerular Filtration 66 ML/MIN (>89) 75 ML/MIN (>89) Rate Random Glucose 133 MG/DL 118 MG/DL (74-106) (74-106) Calcium Level 9.0 MG/DL 8.8 MG/DL (8.5-10.1) (8.5-10.1) Magnesium Level 2.4 MG/DL (1.5-2.5) Total Bilirubin 0.4 MG/DL 0.3 MG/DL (0.2-1.0) (0.2-1.0) Aspartate Amino Transf 61 U/L (15-37) 41 U/L (15-37) (AST/SGOT) Alanine Aminotransferase 94 U/L (12-78) 71 U/L (12-78) (ALT/SGPT) Alkaline Phosphatase 148 U/L 104 U/L (45-117) (45-117) Total Creatine Kinase 99 U/L (39-308) Troponin I LESS THAN 0.02 NG/ML (0.02-0.05) B-Type Natriuretic Peptide 421 PG/ML 583 PG/ML (0-100) (0-100) Total Protein 7.6 GM/DL 6.5 GM/DL (6.4-8.2) (6.4-8.2) Albumin 3.3 GM/DL 2.9 GM/DL (3.4-5.0) (3.4-5.0) Urine Color DARK-YELLOW (YELLW/STRAW) Urine Turbidity HAZY (CLEAR) Urine pH 6.0 (5.0-8.5) Urine Specific [place] 1.031 (1.002-1.035) Urine Protein 100 mg/dL (NEG-TRACE) Urine Glucose (UA) NEG mg/dL (NEG) Urine Ketones NEG mg/dL (NEG) Urine Occult Blood NEG (NEG) Urine Nitrite NEG (NEG) Urine Bilirubin NEG (NEG) Urine Urobilinogen 8.0 MG/DL (LESS THAN 2.0) Urine Leukocyte Esterase NEG (NEG) Urine RBC 4 /hpf (0-3) Urine WBC 3 /hpf (0-5) Urine Squamous Epithelial <1 /hpf (0-5) Cells Urine Hyaline Casts 17 /lpf (RARE) Urine Mucus MANY /lpf (OCC) Nasal Screen MRSA (PCR) MRSA NOT DETECTED (NOT DETECT) Differential Total Cells 100 Counted Neutrophils % (Manual) 78 % (16-70) Band Neutrophils % 4 % (0-6) Lymphocytes % 11 % (9-44) Monocytes % 3 % (0-8) Neutrophils # (Manual) 10.6 TH/MM3 (1.8-7.7) Metamyelocytes 4 % (0-1) Platelet Estimate HIGH (NORMAL) Platelet Morphology Comment NORMAL (NORMAL) Test 11/09/16 09:47 Blood Gas Puncture Site LT RADIAL Blood Gas Patient Temperature 98.6 Blood Gas HCO3 41 mmol/L (22-26) Blood Gas Base Excess 13.5 mmol/L (-2-2) Blood Gas Oxygen Saturation 96 % (90-100) Arterial Blood pH 7.22 (7.380-7.420) Arterial Blood Partial 105 mmHg Pressure CO2 (38-42) Arterial Blood Partial 122 mmHg Pressure O2 (61-120) Arterial Blood Oxygen Content 19.8 Vol % (12.0-20.0) Arterial Blood 1.1 % (0-4) Carboxyhemoglobin Arterial Blood Methemoglobin 0.6 % (0-2) Blood Gas Hemoglobin 14.5 G/DL (12.0-16.0) Oxygen Delivery Device BIPAP Blood Gas Ventilator Setting IPAP 15/EPAP 5 Blood Gas Inspired Oxygen 50 % Result Diagram: 11/09/16 0405 11/09/16 0405 Microbiology Microbiology Date/Time Procedure Status Source Growth 11/08/16 15:03 Aerobic Blood Culture - Preliminary Resulted Blood Line NO GROWTH IN 1 DAY 11/08/16 15:03 Anaerobic Blood Culture - Preliminary Resulted Blood Line NO GROWTH IN 1 DAY 11/08/16 15:08 Aerobic Blood Culture - Preliminary Resulted Blood Line NO GROWTH IN 1 DAY 11/08/16 15:08 Anaerobic Blood Culture - Preliminary Resulted Blood Line NO GROWTH IN 1 DAY 11/08/16 15:37 Legionella Antigen - Final Complete Urine Random Urine PRESUMPTIVE NEGATIVE FOR LEGIONELLA P... 11/08/16 15:37 Streptococcus pneumoniae Antigen (M - Final Complete Urine Random Urine PRESUMPTIVE NEGATIVE FOR STREPTOCOCCU... Imaging Last Impressions Chest X-Ray 11/09/16 0000 Signed Impressions: Service Date/Time: Wednesday, November 09, 2016 07:56 - CONCLUSION: 1. Stable chest x-ray with enlargement of the cardiac silhouette. Yesterday's CT scan documented this to be secondary to an enlarged heart as well as a pericardial effusion. 2. Stable elevation of the left hemidiaphragm with atelectasis and consolidation at the left lung base and a small left pleural effusion. Neri Chavez MD CT Angiography 11/08/16 1426 Signed Impressions: Service Date/Time: Tuesday, November 08, 2016 16:39 - CONCLUSION: 1. No evidence of pulmonary emboli. 2. Cardiomegaly with moderate pericardial effusion. 3. Elevation of the left hemidiaphragm. 4. Mild consolidation in the left lower lobe. Sean Wright MD Patient/Family Conference Present at Family Conference: daughter Family Conference Time (mins): 45 Family Conference Location: Bedside Issues Discussed: Met with , daughter at bedside. Discussion included: * Palliative care role, purpose, approach * Additional medical, psychosocial, and spiritual history * Patients general health, functional status, and cognitive changes in the months leading up to the current hospitalization * Patient/family understanding of the current medical problems * Patient/family understanding of prognosis * Patients goals of care as best understood from advance directives and/or conversations and/or values * Current medical treatment options and benefits/burdens of those options * Advance directive/legal decision maker * CODE STATUS- elects full code, she feels patient did not fully understand yesterday when requested DNR status * Questions answered to the best of my ability * Palliative care contact information provided Met with patient , daughter at bedside at length. Medical attending present /discussing with family for part of consultation. and daughter appear to have a reasonable understanding of conditions and treatments. Patient states though they have no written advanced directives she and her spoken many times regarding their wishes. She feels at this time he would want to proceed with ventilation and invasive measures and attempts to try to get better, though also indicates that he would not want stay on machines for a prolonged amount of time if he was not improving. Assessment and Plan Disease Oriented Problem List: (1) Pleural effusion (2) Coronary artery disease (3) Hypoxemia (4) COPD (chronic obstructive pulmonary disease) (5) Hypertension (6) Afib (7) Hospital acquired PNA (8) Acute respiratory failure (9) S/P CABG x 1 Symptom Scale: (1) Dyspnea (2) Agitation Pertinent Non-Medical Issues Psychosocial:Lives locally with his . He is supported by 2 adult children who live out of the area. Very active, prior to recent cardiovascular surgery played golf about 4 times a week, 18 holes. Spiritual: No particular faith affiliation, does not want student success coach support per Legal: No advanced directives. would be legal decision maker per [place] statutes. Ethical issues impacting care: Important Contacts Sally Key [phone] . Prognosis This patient was admitted for/24 with acute shortness of breath and worsening edema to lower extremities. Recently underwent minimally invasive one-vessel CABG surgery here. Uneventful recovery, had been doing well at home until the past few days. Now with acute respiratory failure, pleural effusion, possible pericardial effusion. Based on currently available information appears conditions may be treatable and possible patient can recover to status prior to admission though does remain at risk for further consultation/setbacks due to advanced age and multiple underlying conditions. Code Status: Full Code Plan * Legal decision maker: No advanced directives. Per [place] statutes would be appropriate legal decision maker. * Goals:Met with patient , daughter at bedside at length. Medical attending present/discussing with family for part of consultation. and daughter appear to have a reasonable understanding of conditions and treatments. Patient states though they have no written advanced directives she and her spoken many times regarding their wishes. She feels at this time he would want to proceed with ventilation and any other aggressive measures measures in attempt to try to get patient better, though also indicates that he would not want stay on machines for a prolonged amount of time if he was not improving. * CODE STATUS: Full code * SYMPTOMS: --Dyspnea: On BiPAP, agitated requiring some sedation likely multifactorial-- oxygen furnace operator consulted and following, planning to intubate shortly--will likely then be on sedation for comfort, Will continue to monitor. Currently appears to be breathing comfortably on BiPAP. --Agitation: Previously with some episodes of agitation and pulling off mass , has received Ativan, currently appears comfortable. Likely metabolic, will continue to evaluate --patient expected to be on sedation for comfort while on mechanical vent --Pain: Patient spouse indicates no chronic pain syndromes or other complaints of pain/ will continue to evaluate * Palliative care will continue to follow during hospital course as condition evolves, to assist patient/decision-maker with understanding of medical conditions, weighing benefits/burdens of treatment options, for clarification of goals of treatment. Additionally will assist with any symptoms of palliative concern Time Spent Total Floor Time (mins): 65 Face to Face Time (mins): 50 >50% Counseling/Coord of Care: Yes (discussed with RN, critical care, pulmonology, medical attending) Thank you for the opportunity to participate in the care of Mr. Key. Attestation To help prompt me to consider important information that might be impacting today's encounter and assessment, information from prior notes written by myself or my colleagues may have been "brought forward" into today's note. My signature on this note, however, is an attestation that I personally performed the exam, history, and/or decision-making noted today, and, unless otherwise indicated, the interactions with patient, family, and staff as well as the review of records all occurred today. I also attest that the listed assessment and stated plan reflect my best clinical judgment today based on the combination of historical information, prior notes, and today's exam/ interactions. When time spent is documented, it refers only to time spent today by the signer, or if indicated, combined time spent today by collaborating physician/nurse practitioner. Keyona Hernandez Nov 09, 2016 11:52
[2016-11-09] MEDS ORDERED: ETOMIDATE 20 MG/10 ML VIAL ONE (14:21)
[2016-11-09] MEDS ORDERED: PROPOFOL 1000 MG/100 ML INJ 100 ML ONE (14:33)
[2016-11-09] MEDS ORDERED: MIDAZOLAM HCL 5 MG/ML VIAL (1 ML) ONE ×2 (14:37)
[2016-11-09] MEDS ORDERED: ROCURONIUM INJ 50 MG/5 ML VIAL ONE (14:37)
--- NOTE | 2016-11-09 15:05 | PD.CONS ---
[facility] Service Critical Care Medicine Consult Requested By Dr. Silva Reason for Consult Acute hypoxemic and hypercarbic respiratory failure Pericardial effusion CHF Probable HCAP Acute COPD exacerbation Primary Care Physician Biju Gorman MD History of Present Illness 86-year-old male with past medical history significant for COPD, coronary artery disease, s/p minimally invasive CABG x1 vessel on 10/19/16, discharged on , chronically on 1 L O2 at home who presented with worsening SOB. Patient was admitted to the hospital service on 11/08/16 with diagnosis of acute CHF and COPD exacerbation, probable healthcare associated pneumonia. A CT angiogram was negative for pulmonary embolism, but moderate pericardial effusion. Patient was placed on broad-spectrum antibiotics Zosyn and azithromycin. Also placed on steroids and breathing treatments. Patient was started on IV Lasix for CHF exacerbation. Chest x-ray showed chronically elevated left hemidiaphragm with left basilar atelectasis, questionable left effusion. Initial WBC 13.9. Apparently overnight his respiratory status worsened and he was placed on BiPAP. ABG after 1 hour BiPAP showed pH of 7.2 PCO2 102 and a PO2 of 120. At that time Dr. Beckett talked with the patient and he was made a DNR. Patient's mental status continued to deteriorate, requiring sedation with Ativan and restraints. Dr. Silva from pulmonology was consulted for respiratory failure. He knows patient from outpatient, and felt that patient did not want to be a DNR, unless care was deemed futile. According to Dr. Silva patient " did not want to live on machines" but temporary intubation was okay. After discussion with Family DNR was rescinded. Critical care medicine was consulted for acute hypoxemic and hypercarbic respiratory failure with encephalopathy. I evaluated the patient immediately. Patient remains on BiPAP but unresponsive. I discussed with the patient's family, patient is unable to protect his airway clearly. I proceeded with endotracheal intubation and placed the patient on mechanical ventilation. A STAT Echo done report is pending Review of Systems ROS Limitations: Altered Mental Status Past Family Social History Allergies: Coded Allergies: No Known Allergies (Verified , 05/12/15) Past Medical History Atrial fibrillation COPD Hypertension PE Prostate ca CAD status post CABG Past Surgical History Minimally Invasive Coronary Artery Bypass Grafting x 1 (MIDCAB) with MONTERO to LAD Right hip replacement Reported Medications Amiodarone (Amiodarone HCl) 400 Mg Tab 400 Mg PO BID Eliquis (Apixaban) 5 Mg Tab 5 Mg PO BID Metoprolol Tartrate 50 Mg Tab 50 Mg PO BID Ipratropium Neb (Ipratropium [place]) 0.5 Mg/2.5 Ml Amp 0.5 Mg NEB Q4HR NEB PRN Albuterol Neb (Albuterol Sulfate) 2.5 Mg/3 Ml Neb 2.5 Mg NEB Q4HR NEB PRN Nebulizer Kit/Tubing/Mout (N/A) 1 Kit Kit 1 Kit .ROUTE DIRECTED Ventolin Hfa 18 GM Inh (Albuterol Sulfate) 90 Mcg/Act Aer 2 Puff INH Q4-6H PRN Thera M Plus (Multivitamins/Minerals Therapeutic) 1 Tab 1 Tab PO DAILY Dok (Docusate Sodium) 100 Mg Cap 100 Mg PO BID Atorvastatin (Atorvastatin Calcium) 20 Mg Tab 20 Mg PO HS Serevent Diskus Inh (Salmeterol Xinafoate) 50 Mcg/Act Aero 50 Mcg INH BID Lisinopril 10 Mg Tab 10 Mg PO DAILY Aspirin DR (Aspirin) 81 Mg Tabdr 81 Mg PO DAILY Active Ordered Medications Reviewed Family History Noncontributory Social History Quit smoking in 80s. Consumes few drinks daily Physical Exam Vital Signs Vital Signs Date Time Temp Pulse Resp B/P Pulse Ox O2 Delivery O2 Flow Rate FiO2 11/09/16 12:26 99 50 11/09/16 12:00 83 11/09/16 12:00 98.4 83 12 124/57 100 11/09/16 10:00 81 11/09/16 09:00 100 50 11/09/16 08:00 98.5 81 16 117/62 100 11/09/16 08:00 81 11/09/16 07:00 Bi-Pap 50 11/09/16 06:00 69 11/09/16 04:00 68 11/09/16 04:00 97.8 68 24 120/55 96 11/09/16 02:35 Bi-Pap 50 11/09/16 02:25 Bi-Pap 35 11/09/16 02:20 92 35 11/09/16 02:00 98 Nasal Cannula 3.00 11/09/16 02:00 69 11/09/16 00:30 98.2 66 36 133/60 99 11/09/16 00:30 66 11/09/16 00:30 96 Nasal Cannula 3.00 11/08/16 22:54 81 24 118/58 98 Nasal Cannula 3 11/08/16 19:31 59 26 125/58 99 Nasal Cannula 3 11/08/16 18:23 61 18 121/65 99 Nasal Cannula 3 11/08/16 16:16 58 18 145/66 93 Nasal Cannula 3 11/08/16 16:16 93 Nasal Cannula 3.00 11/08/16 15:33 96 Nasal Cannula 4 11/08/16 15:33 97 28 98 Nasal Cannula 5 11/08/16 15:33 18 96 Nasal Cannula 3 Physical Exam GENERAL: This is a well-nourished, well-developed patient, who is unresponsive on BiPAP SKIN: No rashes, ecchymoses or lesions. Cool and dry. HEAD: Atraumatic. Normocephalic. EYES: Pupils equal round and reactive. No injection or drainage. ENT: On BiPAP. Airway patent. NECK: Trachea midline. No JVD or lymphadenopathy. Supple, nontender, no meningeal signs. CARDIOVASCULAR: Atrial fibrillation with RVR. +2 edema bilateral lower extremities up to the knees. Heart sounds are distant RESPIRATORY: Diminished breath sounds with few basilar crackles. No wheezes, rales, or rhonchi. GASTROINTESTINAL: Abdomen soft, non-tender, nondistended. No hepato-splenomegaly , or palpable masses. No guarding. MUSCULOSKELETAL: Lower extremities with 2+ edema. No joint tenderness noted. No calf tenderness. NEUROLOGICAL: Patient remains on BiPAP. Unresponsive to sternal rub. No withdrawal to painful stimuli Laboratory Laboratory Tests Test 11/08/16 11/08/16 11/09/16 11/09/16 15:08 15:37 00:40 04:05 White Blood Count 13.9 12.3 Red Blood Count 3.40 3.14 Hemoglobin 10.6 10.1 Hematocrit 32.6 29.8 Mean Corpuscular Volume 95.7 95.1 Mean Corpuscular Hemoglobin 31.1 32.2 Mean Corpuscular Hemoglobin 32.5 33.8 Concent Red Cell Distribution Width 13.7 14.4 Platelet Count 515 481 Mean Platelet Volume 7.4 7.1 Neutrophils (%) (Auto) 81.9 78.9 Lymphocytes (%) (Auto) 6.2 8.3 Monocytes (%) (Auto) 11.5 11.9 Eosinophils (%) (Auto) 0.0 0.4 Basophils (%) (Auto) 0.4 0.5 Neutrophils # (Auto) 11.3 9.7 Lymphocytes # (Auto) 0.9 1.0 Monocytes # (Auto) 1.6 1.5 Eosinophils # (Auto) 0.0 0.0 Basophils # (Auto) 0.1 0.1 CBC Comment DIFF FINAL AUTO DIFF Differential Comment FINAL DIFF MANUAL Prothrombin Time 13.5 Prothromb Time International 1.2 Ratio Activated Partial 28.9 Thromboplast Time D-Dimer Quantitative (PE/DVT) 10.43 Sodium Level 133 137 Potassium Level 5.4 4.8 Chloride Level 95 96 Carbon Dioxide Level 34.7 38.2 Anion Gap 3 3 Blood Urea Nitrogen 34 30 Creatinine 1.07 0.96 Estimat Glomerular Filtration 66 75 Rate Random Glucose 133 118 Calcium Level 9.0 8.8 Magnesium Level 2.4 Total Bilirubin 0.4 0.3 Aspartate Amino Transf 61 41 (AST/SGOT) Alanine Aminotransferase 94 71 (ALT/SGPT) Alkaline Phosphatase 148 104 Total Creatine Kinase 99 Troponin I LESS THAN 0.02 B-Type Natriuretic Peptide 421 583 Total Protein 7.6 6.5 Albumin 3.3 2.9 Urine Color DARK-YELLOW Urine Turbidity HAZY Urine pH 6.0 Urine Specific [place] 1.031 Urine Protein 100 Urine Glucose (UA) NEG Urine Ketones NEG Urine Occult Blood NEG Urine Nitrite NEG Urine Bilirubin NEG Urine Urobilinogen 8.0 Urine Leukocyte Esterase NEG Urine RBC 4 Urine WBC 3 Urine Squamous Epithelial <1 Cells Urine Hyaline Casts 17 Urine Mucus MANY Nasal Screen MRSA (PCR) MRSA NOT DETECTED Differential Total Cells 100 Counted Neutrophils % (Manual) 78 Band Neutrophils % 4 Lymphocytes % 11 Monocytes % 3 Neutrophils # (Manual) 10.6 Metamyelocytes 4 Platelet Estimate HIGH Platelet Morphology Comment NORMAL Test 11/09/16 09:47 Blood Gas Puncture Site LT RADIAL Blood Gas Patient Temperature 98.6 Blood Gas HCO3 41 Blood Gas Base Excess 13.5 Blood Gas Oxygen Saturation 96 Arterial Blood pH 7.22 Arterial Blood Partial 105 Pressure CO2 Arterial Blood Partial 122 Pressure O2 Arterial Blood Oxygen Content 19.8 Arterial Blood 1.1 Carboxyhemoglobin Arterial Blood Methemoglobin 0.6 Blood Gas Hemoglobin 14.5 Oxygen Delivery Device BIPAP Blood Gas Ventilator Setting IPAP 15/EPAP 5 Blood Gas Inspired Oxygen 50 Date/Time Procedure Status Source Growth 11/08/16 15:37 Legionella Antigen - Final Complete Urine Random Urine PRESUMPTIVE NEGATIVE FOR LEGIONELLA P... 11/08/16 15:37 Streptococcus pneumoniae Antigen (M - Final Complete Urine Random Urine PRESUMPTIVE NEGATIVE FOR STREPTOCOCCU... 11/08/16 15:08 Aerobic Blood Culture - Preliminary Resulted Blood Line NO GROWTH IN 1 DAY 11/08/16 15:08 Anaerobic Blood Culture - Preliminary Resulted Blood Line NO GROWTH IN 1 DAY Result Diagram: 11/09/16 0405 11/09/[address] angiogram was negative for pulmonary embolism, but with moderate pericardial effusion. L LL atelectasis Chest x-ray showed chronically elevated left hemidiaphragm with left basilar atelectasis, questionable left effusion Septic Shock Reassessment Heart: Irregular Lungs: Course Skin: Warm Peripheral Pulses: Weak Right Radial Weak Left Radial Assessment and Plan Assessment and Plan NEURO: Acute metabolic encephalopathy CO2 narcosis -Intubated for airway protection -Propofol for sedation and ventilator synchrony -Daily sedation vacation starting in 24 hours RESP: Acute hypercarbic and hypoxemic respiratory failure Probable HCAP Acute COPD exacerbation -Intubated and placed on mechanical ventilation. PRVC/AC 14/500/8 -DuoNeb every 6 hours scheduled and when necessary -Continue IV Solu-Medrol -No weaning trails until respiratory and neuro status improved CV: CHF exacerbation Pericardial effusion Status post minimally invasive CABG 10/19/16 Chronic atrial fibrillation -Normal saline IV fluids 1L bolus for hypotension -Hold IV Lasix due to hypotension -Stat 2D echo to rule out pericardial tamponade report is pending -CTS Dr. Dominguez following -Levophed to keep map above 65 GI: -Nothing by mouth. IV Protonix -Start tube feeding in 24 hours : -Monitor renal function closely. Broderick catheter. -Hold IV Lasix due to hypotension ID: Sepsis Probable healthcare associated pneumonia -F/U on blood sputum and urine cultures -Continue azithromycin and Zosyn HEME: -Monitor CBC, CMP. coags -Hold Xarelto and aspirin in anticipation of possible pericardiocentesis, in case of cardiac tamponade ENDO: -Electrolyte replacement protocol PROPH: -Bilateral lower extremity SCDs. Protonix 40 mg IV daily. Hold off chemical DVT prophylaxis LINES: -Utilize peripheral IVs, place L subclavian central line CC time 92 min excluding procedures, including discussion with multiple specialist pulmonology, hospitalist and palliative care Code Status Full Discussed Condition With Sujit Deshpande and palliative care team Janet He MD Nov 09, 2016 15:05
--- NOTE | 2016-11-09 15:25 | PD.PROCEDR ---
Procedure Note Procedure After the risks and benefits were discussed the following procedure was performed: INTUBATION: The patient was put in optimal position for the procedure. Rapid sequence intubation was initiated by me using 20 milligrams of etomidate IV and 5 milligrams of Versed IV. NM paralysis with 50 mg IV Rocuronium. DL with Mac 4 blade Grade 1 view. The patient was intubated with a 8.0 cuffed endotracheal tube. Tube placement was confirmed by visualization of the tube and balloon passing through the cords, capnometry and subsequent chest x-ray. Breath sounds were equal and well aerated bilaterally postintubation. No breath sounds over stomach. Patient tolerated procedure well. Janet He MD Nov 09, 2016 15:25
[2016-11-09] MEDS: RESP: ALBUTEROL 2.5 MG/IPRATROPIUM 0.5 MG NEB (SCH) NEB ×2 (15:47→20:47)
--- NOTE | 2016-11-09 15:59 | MB ---
cc: Karin ARREOLA M.D. DATE OF CONSULTATION 11/09/2016 HISTORY OF THE PRESENT ILLNESS Mr. Key is an 86-year-old white male who underwent a minimally invasive single-vessel coronary artery bypass in early October. It was complicated by some postoperative respiratory difficulty, a small effusion and elevation of the left hemidiaphragm. The patient was discharged home on oxygen though and stable. I have followed him for COPD which has been stable actually prior to this without oxygen on Serevent disk twice a day. Since discharge home he has had some shortness of breath that had been improving until several days ago when he began to develop increasing lower extremity edema, shortness of breath and more difficulty with fatigue. He presented to the emergency room yesterday and was placed in intensive care unit overnight on BiPap. Arterial blood gas earlier today on BiPap 50% pO2 122 with a pH 7.22 and a pCO2 105 with a bicarb of 41. During the last hospitalization postoperatively also went into atrial fibrillation so has been on amiodarone and Eliquis for stroke prevention. PAST MEDICAL HISTORY Additional past history: 1. Hypertension. 2. Prostate cancer. 3. A right hip replacement. ALLERGIES None known. SOCIAL HISTORY living with his . Former smoker. No excessive alcohol use. MEDICATIONS Reviewed in the EMR. He has been started on broad-spectrum antibiotics including Piperacillin and Zithromax. REVIEW OF SYSTEMS The review of systems is taken from his and daughter who are at the bedside. The patient has been sedated and is on BiPAP. Apparently he had no significant congestion or sputum production prior to the admission. He had had no fever that they were aware of. The most notable changes were fatigue, shortness of breath and increasing lower extremity edema. He did have a CT angiogram in the emergency room yesterday with no evidence of pulmonary embolism. A moderate pericardial effusion. Elevation of the left hemidiaphragm and some compressive atelectasis of the left base without a significant effusion. PHYSICAL EXAMINATION VITAL SIGNS: The patient is sedated on BiPap, breathing 24-28 times a minute. Temperature is 98, pulse is 80, blood pressure 120/60, respirations 24, O2 sat 99%. HEENT: Sclerae anicteric. NECK: The neck veins are not grossly distended. CHEST: Scattered congestion both lungs. No audible wheezes. CARDIOVASCULAR: Heart sounds are present but distant. No audible S3. ABDOMEN: Soft, nontender. EXTREMITIES: 2-3+ lower extremity edema. SCDs in place. Medications are reviewed in the EMR. DISCUSSION Mr. Key presents with respiratory failure. Arterial blood gases done today show marked elevation in the pCO2. It was noted that the patient had been made a DNR after discussion yesterday in the emergency room, but I approached his and daughter about that today because that had never been clear to me in his outpatient management. Both and daughter feel that the patient in all likelihood was not completely aware of the circumstances when that was discussed yesterday so I spoke to Dr. Bazzi and that DNR order has been rescinded particularly in light of the recent bypass surgery and the likelihood that he is in heart failure with some pneumonia and underlying COPD that could potentially be corrected. Family and physicians are in agreement. I have also spoken to Dr. He's critical care to see him urgently today as he is likely to need intubation and ventilatory support. We will continue him on IV corticosteroids, antibiotics, routine aerosol treatments. Further diagnostic and/or therapeutic intervention will depend on his ongoing clinical course and response to therapy. R. MD LINDSAY Sharma/KK /3:11 PM /3:38 PM
--- NOTE | 2016-11-09 16:04 | RADRPT ---
EXAM DATE/TIME: 11/09/2016 15:29 [facility] COMPARISON: CHEST SINGLE AP, November 09, 2016, 7:56. INDICATIONS : Post endotracheal tube placement. MEDICAL HISTORY : Unobtainable SURGICAL HISTORY : Unobtainable ENCOUNTER: Subsequent ACUITY: 3 days PAIN SCORE: Non-responsive. LOCATION: Bilateral chest FINDINGS: A single AP semierect portable view of the chest was obtained and demonstrates interval placement of endotracheal tube with the tip approximately 4 cm above the génesis. The heart size remains moderately enlarged and there is a moderate left effusion. There is mild blunting of the right costophrenic ang le now noted consistent with small effusion. There is a moderate scoliosis. There are one electrocard iogram leads. Calcified granuloma in the right lower lobe. CONCLUSION: 1. Interval intubation. 2. Moderate cardiomegaly is again noted with bilateral effusions left greater than right. Sean Wright MD on November 09, 2016 at 16:01 Board Certified Radiologist. This report was verified electronically.
--- NOTE | 2016-11-09 16:06 | PD.CAR.PN ---
CVT Progress Note Subjective/Hospital Course: 86/ male recent hx of chest pain eval by Dr Westfall and underwent nuclear stress test which was abnormal and underwent elective cardiac cath / revealing 95% LAD stenosis and preserved LV function PMH: HTN, GERD, COPD prostate CA surgery: 10/19 Minimally Invasive Coronary Artery Bypass Grafting x 1 (MIDCAB) with MONTERO to LAD / discharge 10/23/16 pt presented to ED today with significant dyspnea + lower ext edema CXR showed elevated left hemidiaphragm, prior hx , atelectasis / elevated WBC, concern for possible PNA US during his admission possible left effusion/ not enough fluid to drain at that time agree with dideioning, may need 2decho to re-eval EF agree with ABX 11/09/16 pt had worsening Resp symptoms , not improved with Bipap now intubated, CT chest noted Left lower PNA , moderate pericardial effusion 2d echo pending Dr Dominguez aware CCM following Objective: GENERAL: orally intubated sedated on vent SKIN: Warm and dry.incision left chest intact and well approximated HEAD: Normocephalic. EYES: No scleral icterus. No injection or drainage. NECK: Supple, trachea midline. No JVD or lymphadenopathy. CARDIOVASCULAR: Regular rate and rhythm without murmurs, gallops, or rubs. + 2 edema lower ext RESPIRATORY: coarse breath sounds , orally intubated on vent . No accessory muscle use. GASTROINTESTINAL: Abdomen soft, non-tender, nondistended. MUSCULOSKELETAL: No cyanosis, or edema. BACK: Nontender without obvious deformity. No CVA tenderness. Vital Signs Date Time Temp Pulse Resp B/P Pulse Ox O2 Delivery O2 Flow Rate FiO2 11/09/16 12:26 99 50 11/09/16 12:00 83 11/09/16 12:00 98.4 83 12 124/57 100 11/09/16 10:00 81 11/09/16 09:00 100 50 11/09/16 08:00 98.5 81 16 117/62 100 11/09/16 08:00 81 11/09/16 07:00 Bi-Pap 50 11/09/16 06:00 69 11/09/16 04:00 68 11/09/16 04:00 97.8 68 24 120/55 96 11/09/16 02:35 Bi-Pap 50 11/09/16 02:25 Bi-Pap 35 11/09/16 02:20 92 35 11/09/16 02:00 98 Nasal Cannula 3.00 11/09/16 02:00 69 11/09/16 00:30 98.2 66 36 133/60 99 11/09/16 00:30 66 11/09/16 00:30 96 Nasal Cannula 3.00 11/08/16 22:54 81 24 118/58 98 Nasal Cannula 3 11/08/16 19:31 59 26 125/58 99 Nasal Cannula 3 11/08/16 18:23 61 18 121/65 99 Nasal Cannula 3 11/08/16 16:16 58 18 145/66 93 Nasal Cannula 3 11/08/16 16:16 93 Nasal Cannula 3.00 Labs: Laboratory Tests Test 11/09/16 11/09/16 04:05 09:47 White Blood Count 12.3 TH/MM3 (4.0-11.0) Red Blood Count 3.14 MIL/MM3 (4.50-5.90) Hemoglobin 10.1 GM/DL (13.0-17.0) Hematocrit 29.8 % (39.0-51.0) Mean Corpuscular Volume 95.1 FL (80.0-100.0) Mean Corpuscular Hemoglobin 32.2 PG (27.0-34.0) Mean Corpuscular Hemoglobin 33.8 % Concent (32.0-36.0) Red Cell Distribution Width 14.4 % (11.6-17.2) Platelet Count 481 TH/MM3 (150-450) Mean Platelet Volume 7.1 FL (7.0-11.0) Neutrophils (%) (Auto) 78.9 % (16.0-70.0) Lymphocytes (%) (Auto) 8.3 % (9.0-44.0) Monocytes (%) (Auto) 11.9 % (0.0-8.0) Eosinophils (%) (Auto) 0.4 % (0.0-4.0) Basophils (%) (Auto) 0.5 % (0.0-2.0) Neutrophils # (Auto) 9.7 TH/MM3 (1.8-7.7) Lymphocytes # (Auto) 1.0 TH/MM3 (1.0-4.8) Monocytes # (Auto) 1.5 TH/MM3 (0-0.9) Eosinophils # (Auto) 0.0 TH/MM3 (0-0.4) Basophils # (Auto) 0.1 TH/MM3 (0-0.2) CBC Comment AUTO DIFF Differential Total Cells 100 Counted Neutrophils % (Manual) 78 % (16-70) Band Neutrophils % 4 % (0-6) Lymphocytes % 11 % (9-44) Monocytes % 3 % (0-8) Neutrophils # (Manual) 10.6 TH/MM3 (1.8-7.7) Metamyelocytes 4 % (0-1) Differential Comment FINAL DIFF MANUAL Platelet Estimate HIGH (NORMAL) Platelet Morphology Comment NORMAL (NORMAL) Sodium Level 137 MEQ/L (136-145) Potassium Level 4.8 MEQ/L (3.5-5.1) Chloride Level 96 MEQ/L (98-107) Carbon Dioxide Level 38.2 MEQ/L (21.0-32.0) Anion Gap 3 MEQ/L (5-15) Blood Urea Nitrogen 30 MG/DL (7-18) Creatinine 0.96 MG/DL (0.60-1.30) Estimat Glomerular Filtration 75 ML/MIN (>89) Rate Random Glucose 118 MG/DL (74-106) Calcium Level 8.8 MG/DL (8.5-10.1) Total Bilirubin 0.3 MG/DL (0.2-1.0) Aspartate Amino Transf 41 U/L (15-37) (AST/SGOT) Alanine Aminotransferase 71 U/L (12-78) (ALT/SGPT) Alkaline Phosphatase 104 U/L (45-117) B-Type Natriuretic Peptide 583 PG/ML (0-100) Total Protein 6.5 GM/DL (6.4-8.2) Albumin 2.9 GM/DL (3.4-5.0) Blood Gas Puncture Site LT RADIAL Blood Gas Patient Temperature 98.6 Blood Gas HCO3 41 mmol/L (22-26) Blood Gas Base Excess 13.5 mmol/L (-2-2) Blood Gas Oxygen Saturation 96 % (90-100) Arterial Blood pH 7.22 (7.380-7.420) Arterial Blood Partial 105 mmHg Pressure CO2 (38-42) Arterial Blood Partial 122 mmHg Pressure O2 (61-120) Arterial Blood Oxygen Content 19.8 Vol % (12.0-20.0) Arterial Blood 1.1 % (0-4) Carboxyhemoglobin Arterial Blood Methemoglobin 0.6 % (0-2) Blood Gas Hemoglobin 14.5 G/DL (12.0-16.0) Oxygen Delivery Device BIPAP Blood Gas Ventilator Setting IPAP 15/EPAP 5 Blood Gas Inspired Oxygen 50 % Result Diagram: 11/09/165 11/09/16404 Telemetry: s/p mid cab (1) Coronary artery disease (2) S/P CABG x 1 Plan: resume statin , agree on holding chanel and BB (3) COPD (chronic obstructive pulmonary disease) Plan: nebs (4) Pleural effusion Plan: agree with diuresis (5) PNA (pneumonia) Plan: abx (6) Afib Plan: eliquis on hold (7) moderate pericardial effusion Plan: await 2d ECHO results agree holding anticoagulation (8) ventilator dependent resp failure Plan: vent per [facility] Ana García Nov 09, 2016 16:06
[2016-11-09] MEDS ORDERED: ETOMIDATE 20 MG/10 ML VIAL IV PUSH ONE (16:15)
[2016-11-09] MEDS ORDERED: ROCURONIUM INJ 50 MG/5 ML VIAL IV PUSH ONE (16:15)
[2016-11-09] MEDS ORDERED: SODIUM CHLORID 0.9% 500 ML INJ 500 ML IV ONE (16:15)
[2016-11-09] MEDS ORDERED: MIDAZOLAM HCL 5 MG/ML VIAL (1 ML) IV PUSH ONE (16:15)
--- NOTE | 2016-11-09 16:31 | PD.PROCEDR ---
Central Line Procedure REASON FOR PROCEDURE Central venous access PROCEDURE PERFORMED Central line placement: Left subclavian CONSENT Informed consent for procedure was obtained by . The risks and benefits of the procedure were discussed to include but limited to bleeding, clot formation , infection, and even . ANESTHESIA Local injection of 1% Lidocaine DESCRIPTION OF THE PROCEDURE The patient was placed in supine, mild Trendelenburg position. The area was exposed and cleansed with ChloraPrep, times two. Large sterile drape was used to cover the patient, with the site exposed, under sterile conditions including cap, face mask, sterile gown, and sterile gloves. On single attempt, the introducer needle was inserted with negative pressure in syringe and venous flash was obtained. The guide wire was then advanced without any restriction and the needle was removed. The dilator was used without any complications. Using Seldinger technique the [ ] catheter was advanced over the guide wire to a depth of 19 centimeters. The guide wire was removed. All ports were aspirated with dark venous blood return and flushed easily with sterile saline. All ports were capped. Antibiotic disc was placed around central line at puncture site. The central line was secured to the skin with two interrupted 2.0 silk sutures. The area was bandaged with sterile see-through central line bandage. RADIOLOGICAL DATA None COMPLICATIONS: No apparent complications ESTIMATED BLOOD LOSS: Less than 1 cc. Tawny Núñez MD Nov 09, 2016 16:31
[2016-11-09 16:43] LABS: BLOOD GAS BASE EXCESS 10.9 mmol/L (-2-2); BLOOD GAS CARBOXYHEMOGLOBIN 1.8 % (0-4); BLOOD GAS HCO3 34 mmol/L (22-26); BLOOD GAS METHEMOGLOBIN 0.8 % (0-2); BLOOD GAS O2 HGB SATURATION 92 % (90-100); BLOOD GAS OXYGEN CONTENT 12.7 Vol % (12.0-20.0); BLOOD GAS PCO2 37 mmHg (38-42); BLOOD GAS PO2 63 mmHg (61-120); BLOOD GAS TOTAL HGB 9.8 G/DL (12.0-16.0); TEMP CORR TO 98.6
[2016-11-09 16:44] LABS: CRITICAL VALUE YES; OXYGEN DEVICE VENTILATOR
[2016-11-09 16:46] LABS: DRAW SITE RT RADIAL; FIO2 50 %; NUMBER OF ARTERIAL PUNCTURES 1; STAT NO; ULNAR PULSE PRESENT
[2016-11-09] MEDS: AZITHROMYCIN INJ 500 MG in SODIUM CHLOR 0.9% 250 ML INJ 250 ML IV SCH (17:05)
--- NOTE | 2016-11-09 17:21 | RADRPT ---
EXAM DATE/TIME: 11/09/2016 16:40 [facility] COMPARISON: CHEST SINGLE AP, November 09, 2016, 15:29 INDICATIONS : Central line placement. . MEDICAL HISTORY : None. SURGICAL HISTORY : None. ENCOUNTER: Initial ACUITY: 1 month PAIN SCORE: Non-responsive. LOCATION: Bilateral chest FINDINGS: A single AP portable erect view of the chest was obtained and demonstrates interval placement of a le ft subclavian central venous line with the tip projected over the superior vena cava. There is no pne umothorax. The heart size remains moderately enlarged. There is a moderate size left effusion and sma ll right pleural effusion. CONCLUSION: 1. Interval placement of left subclavian central venous line with no pneumothorax. 2. Interval placement of nasogastric tube. 3. Moderate cardiomegaly remains with bilateral effusions left greater than right. Sean Wright MD on November 09, 2016 at 17:18 Board Certified Radiologist. This report was verified electronically.
[2016-11-09] MEDS: ATORVASTATIN 20 MG TAB PO SCH (20:13)
[2016-11-09] MEDS: NOREPINEPHRINE 4 MG/D5W 250 ML IV SCH ×2 (20:13→23:02)
[2016-11-09] MEDS: PROPOFOL 1000 MG/100 ML IV SCH ×2 (20:14→23:02)
[2016-11-09] MEDS: HYOSCYAMINE SOLN 0.125 MG/ML 15 ML BTL SL PRN (22:42)
[2016-11-10] VITALS (18 sets, daily range): BP systolic 99–111; BP diastolic 52–58; PULSE 69–118; RESP 14; TEMP 98.9–99.7; O2SAT 96–100
[2016-11-10] MEDS: methylPREDNISolone SOD SUCC 40 MG/1 ML VIAL IV PUSH SCH ×4 (03:01→21:04)
[2016-11-10] MEDS: PIPERACIL-TAZO 4.5 GM PREMIX 100 ML IV SCH ×4 (03:01→21:04)
[2016-11-10] MEDS: PROPOFOL 1000 MG/100 ML IV SCH ×4 (03:01→17:05)
[2016-11-10] MEDS: RESP: ALBUTEROL 2.5 MG/IPRATROPIUM 0.5 MG NEB (SCH) NEB ×4 (04:18→21:28)
[2016-11-10] MEDS: NOREPINEPHRINE 4 MG/D5W 250 ML IV SCH (05:17)
[2016-11-10 06:22] LABS: MEAN CELL VOLUME 92.7 FL (80.0-100.0); MEAN CORPUSCULAR HEMOGLOBIN 31.9 PG (27.0-34.0); MEAN CORPUSCULAR HGB CONC 34.4 % (32.0-36.0); PLATELET COUNT 530 TH/MM3 (150-450); RED BLOOD COUNT 3.02 MIL/MM3 (4.50-5.90); RED CELL DISTRIBUTION WIDTH 13.7 % (11.6-17.2); REVIEW FLAG FINAL; WHITE BLOOD COUNT 13.4 TH/MM3 (4.0-11.0)
[2016-11-10 07:23] LABS: BICARBONATE 37.3 MEQ/L (21.0-32.0); POTASSIUM 3.2 MEQ/L (3.5-5.1)
[2016-11-10] MEDS: SALMETEROL XINAFOATE 50 MCG DISKUS INH SCH (07:46)
[2016-11-10] MEDS: DOCUSATE SODIUM 100 MG CAP PO SCH ×2 (07:46→21:04)
--- NOTE | 2016-11-10 07:47 | HHI.CCPN ---
Subjective Remarks/Hospital Course 86-year-old male with past medical history significant for COPD, coronary artery disease, s/p minimally invasive CABG x1 vessel on 10/19/16, discharged on , chronically on 1 L O2 at home who presented with worsening SOB. Patient was admitted to the hospital service on 11/08/16 with diagnosis of acute CHF and COPD exacerbation, probable healthcare associated pneumonia. A CT angiogram was negative for pulmonary embolism, but moderate pericardial effusion. Patient was placed on broad-spectrum antibiotics Zosyn and azithromycin. Also placed on steroids and breathing treatments. Patient was started on IV Lasix for CHF exacerbation. Chest x-ray showed chronically elevated left hemidiaphragm with left basilar atelectasis, questionable left effusion. Initial WBC 13.9. Apparently overnight his respiratory status worsened and he was placed on BiPAP. ABG after 1 hour BiPAP showed pH of 7.2 PCO2 102 and a PO2 of 120. At that time Dr. Beckett talked with the patient and he was made a DNR. Patient's mental status continued to deteriorate, requiring sedation with Ativan and restraints. Dr. Silva from pulmonology was consulted for respiratory failure. He knows patient from outpatient, and felt that patient did not want to be a DNR, unless care was deemed futile. According to Dr. Silva patient " did not want to live on machines" but temporary intubation was okay. After discussion with Family DNR was rescinded. Critical care medicine was consulted for acute hypoxemic and hypercarbic respiratory failure with encephalopathy. I evaluated the patient immediately. Patient remains on BiPAP but unresponsive. I discussed with the patient's family, patient is unable to protect his airway clearly. I proceeded with endotracheal intubation and placed the patient on mechanical ventilation. A STAT Echo report is pending SUBJ 11/10/16 Remains intubated, sedated. FiO2 down to 40%. Follows commands when sedation lightened. CXR and labs pending at this time. Levophed at 8 mcg/min Objective Vital Signs Date Time Temp Pulse Resp B/P Pulse Ox O2 Delivery O2 Flow Rate FiO2 11/10/16 07:21 98 40 11/10/16 06:00 102 11/10/16 04:00 99.7 14 100/58 11/09/16 07:00 Bi-Pap 11/09/16 02:00 3.00 Intake and Output 11/09/16 11/09/16 11/10/16 08:00 16:00 00:00 Intake Total 103 ml 200 ml 960 ml Output Total 2100 ml 1000 ml 600 ml Balance -1997 ml -800 ml 360 ml Result Diagram: 11/10/16 0600 11/10/16 0600 Other Results Microbiology Date/Time Procedure Status Source Growth 11/08/16 15:37 Legionella Antigen - Final Complete Urine Random Urine PRESUMPTIVE NEGATIVE FOR LEGIONELLA P... 11/08/16 15:37 Streptococcus pneumoniae Antigen (M - Final Complete Urine Random Urine PRESUMPTIVE NEGATIVE FOR STREPTOCOCCU... Laboratory Tests Test 11/09/16 11/09/16 09:47 15:55 Blood Gas Puncture Site LT RADIAL RT RADIAL Blood Gas Patient Temperature 98.6 98.6 Blood Gas HCO3 41 mmol/L 34 mmol/L (22-26) (22-26) Blood Gas Base Excess 13.5 mmol/L 10.9 mmol/L (-2-2) (-2-2) Blood Gas Oxygen Saturation 96 % (90-100) 92 % (90-100) Arterial Blood pH 7.22 7.57 (7.380-7.420) (7.380-7.420) Arterial Blood Partial 105 mmHg 37 mmHg (38-42) Pressure CO2 (38-42) Arterial Blood Partial 122 mmHg 63 mmHg Pressure O2 (61-120) (61-120) Arterial Blood Oxygen Content 19.8 Vol % 12.7 Vol % (12.0-20.0) (12.0-20.0) Arterial Blood 1.1 % (0-4) 1.8 % (0-4) Carboxyhemoglobin Arterial Blood Methemoglobin 0.6 % (0-2) 0.8 % (0-2) Blood Gas Hemoglobin 14.5 G/DL 9.8 G/DL (12.0-16.0) (12.0-16.0) Oxygen Delivery Device BIPAP VENTILATOR Blood Gas Ventilator Setting IPAP 15/EPAP 5 Blood Gas Inspired Oxygen 50 % 50 % Imaging CT angiogram was negative for pulmonary embolism, but with moderate pericardial effusion. L LL atelectasis Chest x-ray showed chronically elevated left hemidiaphragm with left basilar atelectasis, questionable left effusion Objective Remarks GENERAL: This is a well-nourished, well-developed patient, sedated with propofol SKIN: No rashes, ecchymoses or lesions. Cool and dry. HEAD: Atraumatic. Normocephalic. EYES: Pupils equal round and reactive. No injection or drainage. ENT: Orotracheally intubated NECK: Trachea midline. No JVD or lymphadenopathy. Supple, nontender, no meningeal signs. CARDIOVASCULAR: Atrial fibrillation with RVR. +2 edema bilateral lower extremities up to the knees. Heart sounds are distant RESPIRATORY: Diminished breath sounds with few basilar crackles. No wheezes, rales, or rhonchi. GASTROINTESTINAL: Abdomen soft, non-tender, nondistended. No hepato-splenomegaly , or palpable masses. No guarding. MUSCULOSKELETAL: Lower extremities with 2+ edema. No joint tenderness noted. No calf tenderness. NEUROLOGICAL: Patient remains intubated sedated. On sedation lightening wakes up and follows commands Urinary Catheter: Yes Assessment to: Continue A/P Assessment and Plan NEURO: Acute metabolic encephalopathy CO2 narcosis -Intubated for airway protection -Propofol for sedation and ventilator synchrony -Daily sedation vacation form today RESP: Acute hypercarbic and hypoxemic respiratory failure Probable HCAP Acute COPD exacerbation -Intubated and placed on mechanical ventilation. PRVC/AC 14/500/8 -DuoNeb every 6 hours scheduled and when necessary -Continue IV Solu-Medrol -Start CPAP trials in next 24 hours. (Currently on 8 mcg/min of Levophed) CV: CHF exacerbation Pericardial effusion Shock, most likely septic Status post minimally invasive CABG 10/19/16 Chronic atrial fibrillation -Normal saline IV fluids 1L bolus for hypotension -Levophed to keep MAP >65 -Hold IV Lasix due to hypotension -Stat 2D echo to rule out pericardial tamponade -no evidence of tamponade per Dr. Choi -CTS Dr. Dominguez following GI: -Nothing by mouth. IV Protonix -Start tube feeding with Jevity : -Monitor renal function closely. Broderick catheter. -Hold IV Lasix due to hypotension ID: Sepsis Probable healthcare associated pneumonia -F/U on blood sputum and urine cultures -Continue azithromycin and Zosyn HEME: -Monitor CBC, CMP. coags -Holding Xarelto and aspirin in anticipation of possible pericardiocentesis, will d/w Dr. Dominguez ENDO: -Electrolyte replacement protocol PROPH: -Bilateral lower extremity SCDs. Protonix 40 mg IV daily. Holding off chemical DVT prophylaxis LINES: -Utilize peripheral IVs, L subclavian central line placed by Dr. Núñez CC time 45 min excluding procedures. Janet He MD Nov 10, 2016 07:47
[2016-11-10] MEDS: FUROSEMIDE 20 MG/2 ML VIAL IV PUSH SCH (08:02)
[2016-11-10] MEDS ORDERED: MAGNESIUM SULFATE INJ 2 GM in SODIUM CHLORIDE 0.9% INJ 96 ML IV PRN (08:15)
[2016-11-10] MEDS ORDERED: POTASSIUM CHLORIDE 25 MEQ EFFERVESCENT TAB PO PRN (08:15)
[2016-11-10] MEDS ORDERED: POTASSIUM CHLOR 20 MEQ PREMIX 100 ML IV PRN (08:15)
[2016-11-10] MEDS ORDERED: MAGNESIUM OXIDE 400 MG TAB PO PRN (08:15)
[2016-11-10] MEDS ORDERED: MAGNESIUM SULFATE INJ 4 GM in SODIUM CHLORIDE 0.9% INJ 92 ML IV PRN (08:15)
[2016-11-10] MEDS ORDERED: POTASSIUM CHLOR 40 MEQ PREMIX 100 ML IV PRN (08:15)
[2016-11-10] MEDS ORDERED: POTASSIUM PHOSPHATE MONOBASIC 500 MG TAB PO PRN (08:15)
[2016-11-10] MEDS ORDERED: POTASSIUM PHOSPHATE MONOBASIC 500 MG TAB PO/TUBE PRN (08:15)
[2016-11-10] MEDS ORDERED: SODIUM PHOSPHATE INJ 30 MMOL in SODIUM CHLOR 0.9% 250 ML INJ 240 ML IV PRN (08:15)
--- NOTE | 2016-11-10 08:33 | EC ---
Study Study Date:11/09/2016 STUDY CONCLUSIONS SUMMARY - Left ventricle: The cavity size was normal. Wall thickness was increased in a pattern of mild LVH. Systolic function was normal. The estimated ejection fraction was in the range of 60% to 65%. Wall motion was normal; there were no regional wall motion abnormalities. - Tricuspid valve: Mild regurgitation. - Pericardium, extracardiac: A small to moderate pericardial effusion was identified posterior to the heart. The fluid had no internal echoes. There was no evidence of hemodynamic compromise. There was no chamber collapse. If LV function is below 40, please consider prescribing an ACEI or ARB or document rationale for non-use. PROCEDURE DATA STUDY STATUS: Elective. Procedure: Transthoracic echocardiography. Image quality was fair. Scanning was performed from the parasternal, apical, and subcostal acoustic windows. Study completion: The patient tolerated the procedure well. Transthoracic echocardiography. M-mode, complete 2D, complete spectral Doppler, and color Doppler. Height: Height: 70in. Weight: Weight: 197.6lb. Body mass index: BMI: 28.4kg/m^2. Body surface area: BSA: 2.08m^2. Patient status: Inpatient. CARDIAC ANATOMY LEFT VENTRICLE: The cavity size was normal. Wall thickness was increased in a pattern of mild LVH. Systolic function was normal. The estimated ejection fraction was in the range of 60% to 65%. Wall motion was normal; there were no regional wall motion abnormalities. AORTIC VALVE: Trileaflet; normal thickness leaflets. Doppler: Transvalvular velocity was within the normal range. There was no stenosis. No regurgitation. AORTA: The aorta was mildly dilated. Aortic root: The aortic root was normal in size. MITRAL VALVE: Structurally normal valve. Doppler: Transvalvular velocity was within the normal range. There was no evidence for stenosis. Trace to mild regurgitation. Valve area by pressure half-time: 2.97cm^2. Indexed valve area by pressure half-time: 1.43cm^2/m^2. LEFT ATRIUM: The atrium was normal in size. RIGHT VENTRICLE: The cavity size was normal. Wall thickness was normal. PULMONIC VALVE: Doppler: Transvalvular velocity was within the normal range. There was no evidence for stenosis. No regurgitation. TRICUSPID VALVE: Structurally normal valve. Doppler: Transvalvular velocity was within the normal range. Mild regurgitation. Peak gradient: 25mm Hg (D). PULMONARY ARTERY: The main pulmonary artery was normal-sized. Systolic pressure was within the normal range. RIGHT ATRIUM: The atrium was normal in size. PERICARDIUM: A small to moderate pericardial effusion was identified posterior to the heart. The fluid had no internal echoes. There was no evidence of hemodynamic compromise. Doppler: There was no chamber collapse. SYSTEMIC VEINS: Inferior vena cava: The vessel was normal in size. Patient weight: 197.6lb _Ejection fraction:_ 65-75% _Fractional shortening:_ 32% up to 5Kg 5-11.5Kg 11.6-22.9Kg 23-45Kg 45-57Kg Aortic Root 7-13 <17 13-22 17-27 17-27 LA diam 6-13 <23 24-38 33-47 37-40 RVID 10-17 7-15 7-15 7-18 8-17 LVIDd 12-22 <32 24-38 33-47 37-40 LVPW 2-4 3-6 5-7 6-8 7-8 IVS 2-4 3-6 5-7 6-8 7-8 BASIC MEASUREMENTS ADULT NORMAL Left ventricle LV internal dimension, ED, chordal 43.1 mm 43-52 level, PLAX LV internal dimension, ES, chordal 26.8 mm 23-38 level, PLAX Fractional shortening, chordal level, 38 % >29 PLAX LV posterior wall thickness, ED 11.1 mm IVS/LVPW ratio, ED 1.01 <1.3 Ventricular septum Septal thickness, ED 11.2 mm Aortic valve Leaflet separation 25 mm 15-26 Left atrium Anterior-posterior dimension 37 mm Anterior-posterior dimension index 1.78 cm/m^2 <2.2 Right ventricle RV internal dimension, ED, PLAX 25.5 mm 19-38 BASIC MEASUREMENTS ADULT NORMAL Aortic valve Leaflet separation 25 mm 15-26 Aorta Root diameter, ED *38 mm 20-37 DOPPLER MEASUREMENTS ADULT NORMAL Aortic valve Peak velocity, S 138 cm/s Mitral valve Pressure half-time 74 ms Valve area, pressure half-time 2.97 cm^2 Valve area index, pressure half-time 1.43 cm^2/m^2 Tricuspid valve Peak gradient, D 25 mm Hg Maximal inflow velocity 250 cm/s Pulmonic valve Peak velocity, S 107 cm/s LEGEND: Mean values are shown as u=mean value. Asterisk (*) alexander values outside specified normal range. Prepared and signed by Irena Choi [id number]
[2016-11-10] MEDS: HYOSCYAMINE SOLN 0.125 MG/ML 15 ML BTL SL PRN ×2 (08:53→18:44)
[2016-11-10] MEDS: POTASSIUM CHLOR 20 MEQ PREMIX 100 ML IV PRN ×2 (08:54→12:01)
[2016-11-10] MEDS: BENEPROTEIN POWDER 1 PACK G-TUBE SCH ×3 (09:05→16:49)
[2016-11-10 09:18] LABS: MAGNESIUM 2.1 MG/DL (1.5-2.5)
--- NOTE | 2016-11-10 10:36 | RADRPT ---
EXAM DATE/TIME: 11/10/2016 09:36 [facility] COMPARISON: CHEST SINGLE AP, November 09, 2016, 16:40. INDICATIONS : Respiratory disease. MEDICAL HISTORY : Carcinoma, prostate. Cardiovascular disease SURGICAL HISTORY : None. ENCOUNTER: Subsequent ACUITY: 2 days PAIN SCORE: Non-responsive. LOCATION: Bilateral chest FINDINGS: ET tube, nasogastric tube, central venous catheter are in good position. The lungs are under aerated with moderate bibasilar parenchymal changes. There is no pneumothorax. CONCLUSION: 1. Interval improvement. 2. Persistent bibasilar parenchymal changes are noted worse on the right than the left. Andrew Haddad MD FACR on November 10, 2016 at 10:31 Board Certified Radiologist. This report was verified electronically.
[2016-11-10] MEDS: POTASSIUM CHLOR 40 MEQ PREMIX 100 ML IV PRN (10:52)
--- NOTE | 2016-11-10 14:08 | PD.CAR.PN ---
CVT Progress Note Subjective/Hospital Course: 86/ male recent hx of chest pain eval by Dr Westfall and underwent nuclear stress test which was abnormal and underwent elective cardiac cath / revealing 95% LAD stenosis and preserved LV function PMH: HTN, GERD, COPD prostate CA surgery: 10/19 Minimally Invasive Coronary Artery Bypass Grafting x 1 (MIDCAB) with MONTERO to LAD / discharge 10/23/16 pt presented to ED today with significant dyspnea + lower ext edema CXR showed elevated left hemidiaphragm, prior hx , atelectasis / elevated WBC, concern for possible PNA US during his admission possible left effusion/ not enough fluid to drain at that time agree with dideioning, may need 2decho to re-eval EF agree with ABX 11/09/16 pt had worsening Resp symptoms , not improved with Bipap now intubated, CT chest noted Left lower PNA , moderate pericardial effusion 2d echo pending Dr Dominguez [facility] following 11/10 remains on vent PRVC mode / 40% FI02 sedated on propofol lung sounds improved, ECHO noted EF 60% small to mod pericardial effusion, no hemodynamic compromise no surgical intervention at this time per Dr Dominguez hopefully wean and extubate soon Objective: GENERAL: sedated on vent SKIN: Warm and dry.left chest wall incision intact and well approximated HEAD: Normocephalic. EYES: No scleral icterus. No injection or drainage. NECK: Supple, trachea midline. No JVD or lymphadenopathy. CARDIOVASCULAR: Regular rate and rhythm without murmurs, gallops, or rubs. RESPIRATORY: Breath sounds equal bilaterally. Few coarse breath sounds No accessory muscle use./ orally intubated on Vent / per [facility] GASTROINTESTINAL: Abdomen soft, non-tender, nondistended. MUSCULOSKELETAL: No cyanosis, or edema. BACK: Nontender without obvious deformity. No CVA tenderness. Vital Signs Date Time Temp Pulse Resp B/P Pulse Ox O2 Delivery O2 Flow Rate FiO2 11/10/16 11:27 100 40 11/10/16 07:21 98 40 11/10/16 06:00 102 11/10/16 04:19 98 40 11/10/16 04:00 104 11/10/16 04:00 40 11/10/16 04:00 99.7 104 14 100/58 98 11/10/16 02:00 106 11/10/16 01:01 98 40 11/10/16 00:00 99.4 114 14 99/57 96 11/10/16 00:00 114 11/10/16 00:00 40 11/09/16 22:00 110 11/09/16 20:16 94 40 11/09/16 20:00 40 11/09/16 20:00 99.9 106 15 101/53 96 11/09/16 20:00 106 11/09/16 18:00 106 11/09/16 16:30 40 11/09/16 16:00 113 11/09/16 16:00 98.6 113 16 108/74 99 11/09/16 15:54 100 50 11/09/16 14:45 50 Labs: Laboratory Tests Test 11/10/16 06:00 White Blood Count 13.4 TH/MM3 (4.0-11.0) Red Blood Count 3.02 MIL/MM3 (4.50-5.90) Hemoglobin 9.6 GM/DL (13.0-17.0) Hematocrit 28.0 % (39.0-51.0) Mean Corpuscular Volume 92.7 FL (80.0-100.0) Mean Corpuscular Hemoglobin 31.9 PG (27.0-34.0) Mean Corpuscular Hemoglobin 34.4 % Concent (32.0-36.0) Red Cell Distribution Width 13.7 % (11.6-17.2) Platelet Count 530 TH/MM3 (150-450) Mean Platelet Volume 7.3 FL (7.0-11.0) Sodium Level 140 MEQ/L (136-145) Potassium Level 3.2 MEQ/L (3.5-5.1) Chloride Level 93 MEQ/L (98-107) Carbon Dioxide Level 37.3 MEQ/L (21.0-32.0) Anion Gap 10 MEQ/L (5-15) Blood Urea Nitrogen 28 MG/DL (7-18) Creatinine 1.16 MG/DL (0.60-1.30) Estimat Glomerular Filtration 60 ML/MIN (>89) Rate Random Glucose 207 MG/DL (74-106) Calcium Level 8.6 MG/DL (8.5-10.1) Phosphorus Level 1.8 MG/DL (2.5-4.9) Magnesium Level 2.1 MG/DL (1.5-2.5) Result Diagram: 11/10/1659911/10/16 06 (1) Coronary artery disease (2) S/P CABG x 1 Plan: resume statin , agree on holding chanel and BB (3) COPD (chronic obstructive pulmonary disease) Plan: nebs (4) Pleural effusion Plan: agree with diuresis (5) PNA (pneumonia) Plan: abx (6) Afib Plan: eliquis on hold (7) moderate pericardial effusion Plan: small to moderate pericardial effusion , normal EF, no valvular disease no hemodynamic compromise (8) ventilator dependent resp failure Plan: vent per [facility] Ana García Nov 10, 2016 14:08
--- NOTE | 2016-11-10 16:14 | MB ---
cc: PAM WESTFALL M.D.,JOE COWART DATE OF CONSULTATION: 11/10/2016 HISTORY OF PRESENT ILLNESS Thank you Dr. Bazzi for asking us see this very pleasant 86-year-old gentleman, who presents with a prior history of atrial fibrillation, hypertension, COPD, minimally invasive CABG X1. The patient underwent bypass surgery carried out by Dr. Dominguez recently. The patient was discharged about 2 weeks ago. He presents to the emergency room with increasing shortness of breath, feeling weak, he was dehydrated, his blood pressure was low, he has scattered rales especially over the left lung. He has not been urinating as much as he needed to. At this time he denies any chest pains or shortness of breath. PAST MEDICAL HISTORY 1. Positive for COPD. 2. Atrial fibrillation. 3. Hypertension. 4. Pulmonary embolus. 5. Prostate cancer. 6. CAD. 7. Bypass x1. 8. Right hip replacement. MEDICATION Medications at home include: 1. Eliquis. 2. Amiodarone. 3. He is on oxygen tank. 4. Metoprolol. 5. Ipratropium. 6. Albuterol nebulizer. 7. Serevent. 8. Lisinopril. 9. Aspirin. ALLERGIES None known. Medications include: 1. Tylenol. 2. Zofran. 3. Milk of Magnesia. 4. Senokot. 5. Naloxone. 6. Pipericillin. 7. Zithromax. 8. Lasix. 9. Lopressor. 10. Eliquis. 11. Ecotrin. 12. Lipitor. 13. Prinivil. FAMILY HISTORY Denies. SOCIAL HISTORY Quit smoking in 1979. A few drinks a day. PHYSICAL EXAMINATION VITAL SIGNS: Pulse 58, blood pressure 145/66, respirations 18. HEENT: Eyes show no xanthelasma. Mouth shows no cyanosis or pallor. NECK: No JVD. HEART: Two heart sounds, no murmur. CHEST: Chest reveals scattered rales. ABDOMEN: Soft. EXTREMITIES: Legs reveal 2+ edema. NEUROLOGIC: Exam grossly intact. SKIN: Exam grossly intact. LABORATORY DATA White count was 13.9, hemoglobin 10.6, platelet count 515,000. Troponin I less than 0.02. ASSESSMENT/PLAN Patient presents with acute respiratory failure. He is currently intubated. His echocardiogram shows small pericardial effusion with well-preserved left ventricular ejection fraction. He also has COPD. He probably has pneumonia. He has elevation of left hemidiaphragm with left basilar atelectasis, possibly associated left-sided effusion, this may be related to the recent surgery. He also has a BNP that is elevated. His echocardiogram showed small to moderate pericardial effusion but no evidence of cardiac tamponade. The electrocardiogram showed atrial fibrillation with slow ventricular response and nonspecific ST-T wave changes. Medications include azithromycin, propofol, hyoscyamine sulfate, norepinephrine, Albuterol, Piperacillin, methylprednisone, furosemide, Serevent, Lipitor, and the patient is getting intravenous Levophed for pressure support. This is a very ill patient who appears to have had a pneumonia and elevation of left hemidiaphragm. He may also be septic, at this point, his prognosis is guarded and note that his D-dimer is markedly elevated but CT angiography showed no evidence of pulmonary emboli. Thank you for asking us to see this very unfortunate pleasant gentleman. He will be treated for pneumonia and possibly concomitant congestive heart failure. He is currently on intravenous Lasix. We will follow with you. Thank you for asking us to see this very pleasant gentleman. Pam Westfall MD, FRCP,[facility]/TLL /7:37 PM /3:19 PM
[2016-11-10] MEDS ORDERED: FUROSEMIDE 40 MG/4 ML VIAL IV PUSH ONE (16:45)
[2016-11-10] MEDS ORDERED: ALBUMIN HUMAN 25% 25 GM/100 ML BAGP IV ONE (16:45)
[2016-11-10] MEDS: AZITHROMYCIN INJ 500 MG in SODIUM CHLOR 0.9% 250 ML INJ 250 ML IV SCH (17:10)
--- NOTE | 2016-11-10 17:32 | PD.CONS ---
[facility] Service Urology Consult Requested By Primary Care Physician Biju Gorman MD Diagnosis: (1) Acute respiratory failure ICD Code: J96.00 (2) Hospital acquired PNA ICD Code: J18.9 (3) CHF exacerbation ICD Code: I50.9 (4) COPD (chronic obstructive pulmonary disease) ICD Code: J44.9 (5) Afib ICD Code: I48.91 (6) Hypertension ICD Code: I10 History of Present Illness 86-year-old male admitted with pneumonia. Patient noted to have gross hematuria after apparent Broderick trauma. Patient with history of prostate cancer. It is unclear as to the treatment he had the past. He is currently intubated and sedated with restraints in place. I'm unable to obtain a full history. According to the staff, there was an episode of Broderick trauma earlier. Currently he's on continuous bladder irrigation with a [address] Pashto [address] catheter in place. I was able to irrigate the catheter freely and what appears to be old clot is draining from the Broderick catheter. There are no reports of prior gross hematuria. His urinalysis 2 days ago showed 4 rbc's noted. Review of Systems Unable to obtain review of systems due to the fact that the patient is intubated and sedated. Past Family Social History Past Medical History Prostate cancer Heart disease COPD PE A. fib Past Surgical History Hip replacement Questionable prostate surgery Allergies: Coded Allergies: No Known Allergies (Verified , 05/12/15) Family History Unable to obtain Social History Unable to obtain Physical Exam Vital Signs Date Time Temp Pulse Resp B/P Pulse Ox O2 Delivery O2 Flow Rate FiO2 11/10/16 16:12 99 40 11/10/16 11:27 100 40 11/10/16 07:21 98 40 11/10/16 06:00 102 11/10/16 04:19 98 40 11/10/16 04:00 104 11/10/16 04:00 40 11/10/16 04:00 99.7 104 14 100/58 98 11/10/16 02:00 106 11/10/16 01:01 98 40 11/10/16 00:00 99.4 114 14 99/57 96 11/10/16 00:00 114 11/10/16 00:00 40 11/09/16 22:00 110 11/09/16 20:16 94 40 11/09/16 20:00 40 11/09/16 20:00 99.9 106 15 101/53 96 11/09/16 20:00 106 11/09/16 18:00 106 Physical Exam GENERAL: This is a well-nourished, well-developed patient, intubated and sedated. SKIN: No rashes, ecchymoses or lesions. Cool and dry. HEAD: Atraumatic. Normocephalic. No temporal or scalp tenderness. EYES: No scleral icterus. No injection or drainage. ENT: Nose without bleeding, purulent drainage or septal hematoma. Throat without erythema, tonsillar hypertrophy or exudate. Uvula midline. Airway patent. NECK: Trachea midline. No JVD or lymphadenopathy. Supple, nontender, no meningeal signs. Intubated CARDIOVASCULAR: Regular rate and rhythm without murmurs, gallops, or rubs. RESPIRATORY: Breath sounds bilateral GASTROINTESTINAL: Abdomen soft, non-tender, nondistended. No hepato-splenomegaly , or palpable masses. No guarding. GENITOURINARY: Broderick in place with donna-colored urine. MUSCULOSKELETAL: Extremities without clubbing, cyanosis, or edema. No joint tenderness, effusion, or edema noted. No calf tenderness. Negative Homans sign bilaterally. Laboratory Tests Test 11/10/16 06:00 White Blood Count 13.4 Red Blood Count 3.02 Hemoglobin 9.6 Hematocrit 28.0 Mean Corpuscular Volume 92.7 Mean Corpuscular Hemoglobin 31.9 Mean Corpuscular Hemoglobin 34.4 Concent Red Cell Distribution Width 13.7 Platelet Count 530 Mean Platelet Volume 7.3 Sodium Level 140 Potassium Level 3.2 Chloride Level 93 Carbon Dioxide Level 37.3 Anion Gap 10 Blood Urea Nitrogen 28 Creatinine 1.16 Estimat Glomerular Filtration 60 Rate Random Glucose 207 Calcium Level 8.6 Phosphorus Level 1.8 Magnesium Level 2.1 Date/Time Procedure Status Source Growth 11/09/16 15:34 Gram Stain - Final Resulted Sputum Endotracheal 11/09/16 15:34 Sputum Culture - Preliminary Resulted Sputum Endotracheal RARE GROWTH NORMAL RESPIRATORY BENNIE ... 11/08/16 15:37 Legionella Antigen - Final Complete Urine Random Urine PRESUMPTIVE NEGATIVE FOR LEGIONELLA P... 11/08/16 15:37 Streptococcus pneumoniae Antigen (M - Final Complete Urine Random Urine PRESUMPTIVE NEGATIVE FOR STREPTOCOCCU... 4/24/17 15:08 Aerobic Blood Culture - Preliminary Resulted Blood Line NO GROWTH IN 2 DAYS 11/08/16 15:08 Anaerobic Blood Culture - Preliminary Resulted Blood Line NO GROWTH IN 2 DAYS Result Diagram: 11/10/16 0600 11/10/16 0600 Imaging Last Impressions Chest X-Ray 11/10/16 0000 Signed Impressions: Service Date/Time: Thursday, November 10, 2016 09:36 - CONCLUSION: 1. Interval improvement. 2. Persistent bibasilar parenchymal changes are noted worse on the right than the left. Andrew Haddad MD FACR CT Angiography 11/08/16 1426 Signed Impressions: Service Date/Time: Tuesday, November 08, 2016 16:39 - CONCLUSION: 1. No evidence of pulmonary emboli. 2. Cardiomegaly with moderate pericardial effusion. 3. Elevation of the left hemidiaphragm. 4. Mild consolidation in the left lower lobe. Sean Wright MD Assessment and Plan Assessment and Plan 86-year-old male with history of prostate cancer and recent Broderick trauma. Continue CBI for now. Irrigate Broderick when necessary. Obtain old records as to prostate cancer history and question will history of radiation therapy in the past. We'll follow with you and thank you for the consult and allowing me to precipitate in the care of this patient. Loyd Barger DO Nov 10, 2016 17:32
--- NOTE | 2016-11-10 20:03 | PD.CARD.PN ---
Subjective Subjective Remarks Stable doing better;intubated and ventilated off pressors Objective Medications Administered Medications Medications (Trade) Dose Ordered Sig/Darryl Route PRN Reason Start Time Stop Time Status Last Admin Dose Admin Magnesium Hydroxide 30 ml 30 ml Q12HR PRN PO CONSTIPATION 11/08/16 18:00 11/10/16 08:03 Azithromycin/ Sodium Chloride (Zithromax Inj/ NS 250 ml Inj) 250 ml @ 250 mls/hr Q24H IV 11/09/16 18:00 11/10/16 17:10 Furosemide (Lasix Inj) 20 mg BID IV PUSH 11/08/16 21:00 Hold 11/09/16 20:13 Apixaban (Eliquis) 5 mg BID PO 11/08/16 21:00 Hold 11/08/16 21:02 Atorvastatin Calcium (Lipitor) 20 mg HS PO 11/08/16 21:00 11/09/16 20:13 Salmeterol Xinafoate (Serevent Diskus Inh) 50 mcg BID INH 11/08/16 21:00 11/08/16 21:02 Docusate Sodium (Colace) 100 mg BID PO 11/08/16 21:00 11/09/16 20:13 Methylprednisolone Sodium Succinate 40 mg 40 mg Q6H IV PUSH 11/09/16 09:00 11/10/16 14:11 Piperacillin Sod/ Tazobactam Sod (Zosyn 4.5 Gm Premix) 100 ml @ 200 mls/hr Q6H IV 11/09/16 14:00 11/10/16 14:10 Lorazepam 1 mg 1 mg Q4H PRN IV PUSH SEVERE ANXIETY OR AGITATION 11/09/16 08:30 11/09/16 10:36 Norepinephrine Bitartrate (Levophed-Dextrose Drip) 250 ml @ 0 mls/hr TITRATE IV 11/09/16 16:15 11/10/16 05:17 Hyoscyamine Sulfate 0.25 mg 0.25 mg Q6H PRN SL SECRETIONS 11/09/16 17:00 11/10/16 18:44 Propofol 100 ml @ 0 mls/hr TITRATE IV 11/09/16 17:15 11/10/16 17:05 Potassium Chloride 100 ml @ 50 mls/hr Q2H PRN IV For Potassium 2.8 - 3.2 mEq/L 11/10/16 08:15 11/10/16 10:52 Potassium Chloride 100 ml @ 50 mls/hr Q2H PRN IV For Potassium 2.8 - 3.2 mEq/L 11/10/16 08:15 11/10/16 12:01 Sodium Phosphate/ Sodium Chloride (Sodium Phosphate Inj/NS 250 ml Inj) 250 ml @ 42 mls/hr UNSCH PRN IV For Phosphorus < 2.5 mg/dL 11/10/16 08:15 11/10/16 10:27 Protein (Beneprotein Powder) 1 pack TID G-TUBE 11/10/16 09:00 11/10/16 16:49 Vital Signs / I&O Vital Signs Date Time Temp Pulse Resp B/P Pulse Ox O2 Delivery O2 Flow Rate FiO2 11/10/16 16:12 99 40 11/10/16 16:00 40 11/10/16 16:00 99.3 70 14 103/55 98 11/10/16 12:00 98.9 69 14 104/55 100 11/10/16 12:00 40 11/10/16 11:27 100 40 11/10/16 08:00 99.2 101 14 107/52 99 11/10/16 08:00 40 11/10/16 07:21 98 40 11/10/16 06:00 102 11/10/16 04:19 98 40 11/10/16 04:00 104 11/10/16 04:00 40 11/10/16 04:00 99.7 104 14 100/58 98 11/10/16 02:00 106 11/10/16 01:01 98 40 11/10/16 00:00 99.4 114 14 99/57 96 11/10/16 00:00 114 11/10/16 00:00 40 11/09/16 22:00 110 11/09/16 20:16 94 40 11/09/16 20:00 40 11/09/16 20:00 99.9 106 15 101/53 96 11/09/16 20:00 106 I/O 11/09/16 11/09/16 11/09/16 11/10/16 11/10/16 11/10/16 07:00 15:00 23:00 07:00 15:00 23:00 Intake Total 103 ml 200 ml 960 ml 673 ml 927 ml 277 ml Output Total 2100 ml 1000 ml 600 ml 650 ml 80 ml 1400 ml Balance -1997 ml -800 ml 360 ml 23 ml 847 ml -1123 ml Intake Oral 0 ml IV Total 103 ml 200 ml 930 ml 673 ml 745 ml 127 ml Tube Feeding 32 ml Albumin 100 ml Tube Irrigant 30 ml Other 150 ml 50 ml Output Urine Total 2100 ml 1000 ml 350 ml 450 ml 30 ml 1400 ml Gastric Drainage Total 250 ml 200 ml 50 ml Tube Feeding Residual Discard 0 ml Bladder Scan Volume Amount 628 ml # Bowel Movements 0 Physical Exam GENERAL: intubated and ventilated SKIN: Warm and dry. NECK: JVD normal - less than or equal to 5 cm H20. CARDIOVASCULAR: Regular rate and rhythm without murmurs, gallops or rubs. RESPIRATORY: Normal breath sounds - equal bilaterally. No accessory muscle use. No wheezes, rales or rubs. PERIPHERY: No cyanosis or edema. TOUCH UP CARVER: Stable unable to examine fully as intubated and unresponsive Laboratory Laboratory Tests Test 11/10/16 06:00 White Blood Count 13.4 TH/MM3 Red Blood Count 3.02 MIL/MM3 Hemoglobin 9.6 GM/DL Hematocrit 28.0 % Mean Corpuscular Volume 92.7 FL Mean Corpuscular Hemoglobin 31.9 PG Mean Corpuscular Hemoglobin 34.4 % Concent Red Cell Distribution Width 13.7 % Platelet Count 530 TH/MM3 Mean Platelet Volume 7.3 FL Sodium Level 140 MEQ/L Potassium Level 3.2 MEQ/L Chloride Level 93 MEQ/L Carbon Dioxide Level 37.3 MEQ/L Anion Gap 10 MEQ/L Blood Urea Nitrogen 28 MG/DL Creatinine 1.16 MG/DL Estimat Glomerular Filtration 60 ML/MIN Rate Random Glucose 207 MG/DL Calcium Level 8.6 MG/DL Phosphorus Level 1.8 MG/DL Magnesium Level 2.1 MG/DL Imaging Last 48 hours Impressions Chest X-Ray 11/10/16 0000 Signed Impressions: Service Date/Time: Thursday, November 10, 2016 09:36 - CONCLUSION: 1. Interval improvement. 2. Persistent bibasilar parenchymal changes are noted worse on the right than the left. Andrew Haddad MD FACR Chest X-Ray 11/09/16 0000 Signed Impressions: Service Date/Time: Wednesday, November 09, 2016 16:40 - CONCLUSION: 1. Interval placement of left subclavian central venous line with no pneumothorax. 2. Interval placement of nasogastric tube. 3. Moderate cardiomegaly remains with bilateral effusions left greater than right. Sean Wright MD Chest X-Ray 11/09/16 0000 Signed Impressions: Service Date/Time: Wednesday, November 09, 2016 15:29 - CONCLUSION: 1. Interval intubation. 2. Moderate cardiomegaly is again noted with bilateral effusions left greater than right. Sean Wright MD Chest X-Ray 11/09/16 0000 Signed Impressions: Service Date/Time: Wednesday, November 09, 2016 07:56 - CONCLUSION: 1. Stable chest x-ray with enlargement of the cardiac silhouette. Yesterday's CT scan documented this to be secondary to an enlarged heart as well as a pericardial effusion. 2. Stable elevation of the left hemidiaphragm with atelectasis and consolidation at the left lung base and a small left pleural effusion. Neri Chavez MD Assessment and Plan Problem List: (1) Coronary artery disease (2) S/P CABG x 1 (3) COPD (chronic obstructive pulmonary disease) (4) Pleural effusion (5) PNA (pneumonia) (6) Afib Assessment and Plan: Overall doing better but still critical , Discussed with Dr Etienne and in detail (7) moderate pericardial effusion (8) ventilator dependent resp failure Pam Westfall MD Nov 10, 2016 20:03
[2016-11-10] MEDS: ATORVASTATIN 20 MG TAB PO SCH (21:05)
[2016-11-11] VITALS (18 sets, daily range): BP systolic 138–154; BP diastolic 67–85; PULSE 73–82; RESP 14–22; TEMP 98.4–99.2; O2SAT 94–100
[2016-11-11] MEDS: PIPERACIL-TAZO 4.5 GM PREMIX 100 ML IV SCH ×4 (02:00→22:53)
[2016-11-11] MEDS: RESP: ALBUTEROL 2.5 MG/IPRATROPIUM 0.5 MG NEB (SCH) NEB ×4 (04:09→22:25)
[2016-11-11] MEDS: methylPREDNISolone SOD SUCC 40 MG/1 ML VIAL IV PUSH SCH ×3 (04:25→22:14)
[2016-11-11] MEDS: SALMETEROL XINAFOATE 50 MCG DISKUS INH SCH ×3 (04:26→21:00)
[2016-11-11] MEDS: PROPOFOL 1000 MG/100 ML IV SCH ×2 (06:32→18:50)
[2016-11-11] MEDS ORDERED: FUROSEMIDE 40 MG/4 ML VIAL IV PUSH ONE ×2 (08:30→09:00)
[2016-11-11] MEDS: BENEPROTEIN POWDER 1 PACK G-TUBE SCH ×3 (08:55→17:21)
[2016-11-11] MEDS: DOCUSATE SODIUM 100 MG CAP PO SCH ×2 (08:56→22:14)
[2016-11-11 09:34] LABS: POTASSIUM 3.2 MEQ/L (3.5-5.1)
--- NOTE | 2016-11-11 09:47 | HHI.CCPN ---
Subjective Remarks/Hospital Course 86-year-old male with past medical history significant for COPD, coronary artery disease, s/p minimally invasive CABG x1 vessel on 10/19/16, discharged on , chronically on 1 L O2 at home who presented with worsening SOB. Patient was admitted to the hospital service on 11/08/16 with diagnosis of acute CHF and COPD exacerbation, probable healthcare associated pneumonia. A CT angiogram was negative for pulmonary embolism, but moderate pericardial effusion. Patient was placed on broad-spectrum antibiotics Zosyn and azithromycin. Also placed on steroids and breathing treatments. Patient was started on IV Lasix for CHF exacerbation. Chest x-ray showed chronically elevated left hemidiaphragm with left basilar atelectasis, questionable left effusion. Initial WBC 13.9. Apparently overnight his respiratory status worsened and he was placed on BiPAP. ABG after 1 hour BiPAP showed pH of 7.2 PCO2 102 and a PO2 of 120. At that time Dr. Beckett talked with the patient and he was made a DNR. Patient's mental status continued to deteriorate, requiring sedation with Ativan and restraints. Dr. Silva from pulmonology was consulted for respiratory failure. He knows patient from outpatient, and felt that patient did not want to be a DNR, unless care was deemed futile. According to Dr. Silva patient " did not want to live on machines" but temporary intubation was okay. After discussion with Family DNR was rescinded. Critical care medicine was consulted for acute hypoxemic and hypercarbic respiratory failure with encephalopathy. I evaluated the patient immediately. Patient remains on BiPAP but unresponsive. I discussed with the patient's family, patient is unable to protect his airway clearly. I proceeded with endotracheal intubation and placed the patient on mechanical ventilation. A STAT Echo report is pending SUBJ 11/10/16 Remains intubated, sedated. FiO2 down to 40%. Follows commands when sedation lightened. CXR and labs pending at this time. Levophed at 8 mcg/min 11/11: wakes up easily follows commands on lightening sedation. Chest x-ray stable to interval improvement. Weaned off Levophed. FiO2 down to 35%, will start weaning trials Objective Vital Signs Date Time Temp Pulse Resp B/P Pulse Ox O2 Delivery O2 Flow Rate FiO2 11/11/16 08:36 97 35 11/11/16 08:00 75 11/11/16 08:00 98.8 17 152/70 11/09/16 07:00 Bi-Pap 11/09/16 02:00 3.00 Intake and Output 11/10/16 11/10/16 11/11/16 08:00 16:00 00:00 Intake Total 673 ml 927 ml 1199 ml Output Total 650 ml 80 ml 2200 ml Balance 23 ml 847 ml -1001 ml Result Diagram: 11/10/16 0600 11/10/16 0600 Other Results Microbiology Date/Time Procedure Status Source Growth 11/08/16 15:37 Legionella Antigen - Final Complete Urine Random Urine PRESUMPTIVE NEGATIVE FOR LEGIONELLA P... 11/08/16 15:37 Streptococcus pneumoniae Antigen (M - Final Complete Urine Random Urine PRESUMPTIVE NEGATIVE FOR STREPTOCOCCU... Imaging CT angiogram was negative for pulmonary embolism, but with moderate pericardial effusion. L LL atelectasis Chest x-ray showed chronically elevated left hemidiaphragm with left basilar atelectasis, questionable left effusion Objective Remarks GENERAL: This is a well-nourished, well-developed patient, sedated with propofol SKIN: No rashes, ecchymoses or lesions. Cool and dry. HEAD: Atraumatic. Normocephalic. EYES: Pupils equal round and reactive. No injection or drainage. ENT: Orotracheally intubated NECK: Trachea midline. No JVD or lymphadenopathy. Supple, nontender, no meningeal signs. CARDIOVASCULAR: Atrial fibrillation with RVR. +2 edema bilateral lower extremities up to the knees. Heart sounds are distant RESPIRATORY: Diminished breath sounds with few basilar crackles. No wheezes, rales, or rhonchi. GASTROINTESTINAL: Abdomen soft, non-tender, nondistended. No hepato-splenomegaly , or palpable masses. No guarding. MUSCULOSKELETAL: Lower extremities with 2+ edema. No joint tenderness noted. No calf tenderness. NEUROLOGICAL: Patient remains intubated sedated. On sedation lightening wakes up and follows commands A/P Assessment and Plan NEURO: Acute metabolic encephalopathy CO2 narcosis -Intubated for airway protection -Propofol for sedation and ventilator synchrony -Daily sedation vacation s RESP: Acute hypercarbic and hypoxemic respiratory failure Probable HCAP Acute COPD exacerbation -Intubated and placed on mechanical ventilation. PRVC/AC 14/500/8 -DuoNeb every 6 hours scheduled and when necessary -Continue IV Solu-Medrol -Start CPAP trials today CV: CHF exacerbation Pericardial effusion Shock, most likely septic Status post minimally invasive CABG 10/19/16 Chronic atrial fibrillation -Normal saline IV fluids 1L bolus for hypotension. -Levophed to keep MAP >65, now off -IV Lasix resume 20 mg IV BID after 40 mg IVP -Stat 2D echo -no evidence of tamponade per Dr. Choi -CTS Dr. Dominguez following GI: -Nothing by mouth. IV Protonix -Tube feeding with Jevity, hold for possible extubation : Hematuria History of prostate cancer -Continue CBI for now. Urology Dr. Barger -Monitor renal function closely. Broderick catheter. -Resume IV Lasix ID: Sepsis Probable healthcare associated pneumonia -F/U on blood sputum and urine cultures -Continue azithromycin and Zosyn HEME: -Monitor CBC, CMP. coags -Holding Xarelto and aspirin in anticipation of possible pericardiocentesis, will d/w Dr. Dominguez ENDO: -Electrolyte replacement protocol PROPH: -Bilateral lower extremity SCDs. Protonix 40 mg IV daily. Holding off chemical DVT prophylaxis LINES: -Utilize peripheral IVs, L subclavian central line placed by Dr. Núñez Level 3 Janet He MD Nov 11, 2016 09:47
--- NOTE | 2016-11-11 09:56 | HHI.PR ---
Subjective Patient symptoms today Pt resting comfortably. More alert. Urine clearing Objective Vital Signs Vital Signs Date Time Temp Pulse Resp B/P Pulse Ox O2 Delivery O2 Flow Rate FiO2 11/11/16 09:35 35 11/11/16 08:36 97 35 11/11/16 08:00 40 11/11/16 08:00 75 11/11/16 08:00 98.8 75 17 152/70 100 11/11/16 06:00 82 11/11/16 04:10 98 35 11/11/16 04:00 40 11/11/16 04:00 98.4 79 14 142/67 100 11/11/16 04:00 79 11/11/16 02:00 81 11/11/16 01:22 99 40 11/11/16 00:00 99.1 74 14 139/68 100 11/11/16 00:00 40 11/11/16 00:00 74 11/10/16 22:00 84 11/10/16 21:39 99 50 11/10/16 20:00 40 11/10/16 20:00 99.0 79 14 111/54 98 11/10/16 20:00 80 11/10/16 18:00 118 11/10/16 16:12 99 40 11/10/16 16:00 40 11/10/16 16:00 99.3 70 14 103/55 98 11/10/16 16:00 70 11/10/16 14:00 77 11/10/16 12:00 69 11/10/16 12:00 98.9 69 14 104/55 100 11/10/16 12:00 40 11/10/16 11:27 100 40 11/10/16 10:00 105 Intake & Output 11/11/16 11/11/16 07:00 19:00 Intake Total 1803 ml Output Total 1400 ml Balance 403 ml IV Total 1085 ml Tube Feeding 558 ml Other 160 ml Output Urine Total 1400 ml Result Diagram: 11/10/16 0600 11/11/16 0850 Objective Remarks Abd:soft,nt,nt Ureña irrigated at bedside. No clots. Urine clear. Medications and IVs Current Medications Medications (Trade) Dose Ordered Sig/Darryl Route Start Time Stop Time Status Last Admin (NS Flush) 2 ml UNSCH PRN IVF 11/08/16 14:30 (Tylenol) 650 mg Q4H PRN PO 11/08/16 18:00 (Zofran Inj) 4 mg Q6H PRN IVP 11/08/16 18:00 (Milk Of Magnesia Liq) 30 ml Q12HR PRN PO 11/08/16 18:00 11/10/16 08:03 (Senokot) 17.2 mg Q12HR PRN PO 11/08/16 21:00 Naloxone HCl 0.4 mg 0.4 mg UNSCH PRN IV 11/08/16 17:45 (Zithromax Inj/ NS 250 ml Inj) 250 ml @ 250 mls/hr Q24H IV 11/09/16 18:00 11/10/16 17:10 (Lasix Inj) 20 mg BID IV PUSH 11/08/16 21:00 Hold 11/09/16 20:13 (Lopressor) 12.5 mg Q12HR PO 11/08/16 21:00 Hold (Eliquis) 5 mg BID PO 11/08/16 21:00 Hold 11/08/16 21:02 (Ecotrin Ec) 81 mg DAILY PO 11/09/16 09:00 Hold (Lipitor) 20 mg HS PO 11/08/16 21:00 11/10/16 21:05 (Serevent Diskus Inh) 50 mcg BID INH 11/08/16 21:00 11/11/16 04:26 (Colace) 100 mg BID PO 11/08/16 21:00 11/11/16 08:56 (Prinivil) 5 mg DAILY PO 11/09/16 09:00 Hold Methylprednisolone Sodium Succinate 40 mg 40 mg Q6H IV PUSH 11/09/16 09:00 11/11/16 08:56 (Zosyn 4.5 Gm Premix) 100 ml @ 200 mls/hr Q6H IV 11/09/16 14:00 11/11/16 08:55 Lorazepam 1 mg 1 mg Q4H PRN IV PUSH 11/09/16 08:30 11/09/16 10:36 (Levophed-Dextrose Drip) 250 ml @ 0 mls/hr TITRATE IV 11/09/16 16:15 11/10/16 05:17 Hyoscyamine Sulfate 0.25 mg 0.25 mg Q6H PRN SL 11/09/16 17:00 11/10/16 18:44 Propofol 100 ml @ 0 mls/hr TITRATE IV 11/09/16 17:15 11/11/16 06:32 Potassium Chloride 100 ml @ 50 mls/hr Q2H PRN IV 11/10/16 08:15 11/10/16 10:52 (KCl 20 Meq Premix Inj) 100 ml @ 50 mls/hr Q2H PRN IV 11/10/16 08:15 11/10/16 12:01 Potassium Bicarb/ Potassium Chloride 50 meq 50 meq UNSCH PRN PO 11/10/16 08:15 Potassium Chloride 100 ml @ 25 mls/hr UNSCH PRN IV 11/10/16 08:15 Potassium Chloride 100 ml @ 50 mls/hr Q2H PRN IV 11/10/16 08:15 (Magnesium Sulfate Inj/NS Inj) 100 ml @ 50 mls/hr UNSCH PRN IV 11/10/16 08:15 Magnesium Oxide 800 mg 800 mg UNSCH PRN PO 11/10/16 08:15 (Magnesium Sulfate Inj/NS Inj) 100 ml @ 50 mls/hr UNSCH PRN IV 11/10/16 08:15 Potassium Phosphate 2000 mg 2,000 mg Q4H PRN PO 11/10/16 08:15 (Sodium Phosphate Inj/NS 250 ml Inj) 250 ml @ 42 mls/hr UNSCH PRN IV 11/10/16 08:15 11/10/16 10:27 (K-Phos) 2,000 mg UNSCH PRN PO/TUBE 11/10/16 08:15 (Beneprotein Powder) 1 pack TID G-TUBE 11/10/16 09:00 11/11/16 08:55 Assessment and Plan Assessment and Plan 86-year-old male with history of prostate cancer and recent Ureña trauma. Continue CBI for now. Irrigate Ureña when necessary. Obtain old records as to prostate cancer history and question will history of radiation therapy in the past. We'll follow with you and thank you for the consult and allowing me to precipitate in the care of this patient. 11/11 86 y.o male with h/o CaP s/p XRT therapy in the past with recent ureña trauma Ween CBI as urine remains clear Maintain ureña for a least one week to allow urethra to heal. Call with questions. Loyd Barger DO Nov 11, 2016 09:56
[2016-11-11] MEDS: POTASSIUM CHLOR 40 MEQ PREMIX 100 ML IV PRN (10:06)
--- NOTE | 2016-11-11 10:29 | RADRPT ---
EXAM DATE/TIME: 11/11/2016 08:50 [facility] COMPARISON: CHEST SINGLE AP, November 10, 2016, 9:36. INDICATIONS : Pneumonia. MEDICAL HISTORY : Carcinoma, prostatic. Cardiovascular disease. SURGICAL HISTORY : None. ENCOUNTER: Subsequent ACUITY: 3 days PAIN SCORE: Non-responsive. LOCATION: Bilateral chest FINDINGS: Portable AP view of the chest demonstrates mildly enlarged cardiac silhouette. Endotracheal tube and nasogastric tube remain present. Left subclavian central line tip is in the SVC. There are stable bib asilar pleural-parenchymal opacities. No pneumothorax is visualized. Bones demonstrate no acute findi ng. CONCLUSION: 1. Stable chest x-ray with bibasilar opacity likely representing small pleural effusions with associa christa volume loss and/or consolidation. 2. Stable enlargement of the cardiac silhouette. Neri Chavez MD on November 11, 2016 at 10:00 Board Certified Radiologist. This report was verified electronically.
--- NOTE | 2016-11-11 13:38 | PD.CARD.PN ---
Subjective Subjective Remarks No chest pain or sob Objective Medications Administered Medications Medications (Trade) Dose Ordered Sig/Darryl Route PRN Reason Start Time Stop Time Status Last Admin Dose Admin Magnesium Hydroxide 30 ml 30 ml Q12HR PRN PO CONSTIPATION 11/08/16 18:00 11/10/16 08:03 Azithromycin/ Sodium Chloride (Zithromax Inj/ NS 250 ml Inj) 250 ml @ 250 mls/hr Q24H IV 11/09/16 18:00 11/10/16 17:10 Furosemide (Lasix Inj) 20 mg BID IV PUSH 11/08/16 21:00 11/09/16 20:13 Apixaban (Eliquis) 5 mg BID PO 11/08/16 21:00 Hold 11/08/16 21:02 Atorvastatin Calcium (Lipitor) 20 mg HS PO 11/08/16 21:00 11/10/16 21:05 Salmeterol Xinafoate (Serevent Diskus Inh) 50 mcg BID INH 11/08/16 21:00 11/11/16 04:26 Docusate Sodium 100 mg 100 mg BID PO 11/08/16 21:00 11/11/16 08:56 Piperacillin Sod/ Tazobactam Sod (Zosyn 4.5 Gm Premix) 100 ml @ 200 mls/hr Q6H IV 11/09/16 14:00 11/11/16 13:14 Lorazepam 1 mg 1 mg Q4H PRN IV PUSH SEVERE ANXIETY OR AGITATION 11/09/16 08:30 11/09/16 10:36 Norepinephrine Bitartrate (Levophed-Dextrose Drip) 250 ml @ 0 mls/hr TITRATE IV 11/09/16 16:15 11/10/16 05:17 Hyoscyamine Sulfate 0.25 mg 0.25 mg Q6H PRN SL SECRETIONS 11/09/16 17:00 11/10/16 18:44 Propofol 100 ml @ 0 mls/hr TITRATE IV 11/09/16 17:15 11/11/16 06:32 Potassium Chloride 100 ml @ 50 mls/hr Q2H PRN IV For Potassium 2.8 - 3.2 mEq/L 11/10/16 08:15 11/11/16 10:06 Potassium Chloride 100 ml @ 50 mls/hr Q2H PRN IV For Potassium 2.8 - 3.2 mEq/L 11/10/16 08:15 11/10/16 12:01 Sodium Phosphate/ Sodium Chloride (Sodium Phosphate Inj/NS 250 ml Inj) 250 ml @ 42 mls/hr UNSCH PRN IV For Phosphorus < 2.5 mg/dL 11/10/16 08:15 11/10/16 10:27 Protein (Beneprotein Powder) 1 pack TID G-TUBE 11/10/16 09:00 11/11/16 13:14 Vital Signs / I&O The exam, history, and the medical decision-making described in the above note were completed with the assistance of the mid-level provider. I reviewed and agree with the findings presented. I attest that I had a [id number] encounter with the patient on the same day, and personally performed and documented my assessment and findings in the medical record. Vital Signs Date Time Temp Pulse Resp B/P Pulse Ox O2 Delivery O2 Flow Rate FiO2 11/11/16 12:26 94 35 11/11/16 12:00 35 11/11/16 12:00 73 11/11/16 12:00 98.8 74 21 154/74 97 11/11/16 10:00 80 11/11/16 09:35 35 11/11/16 08:36 97 35 11/11/16 08:00 40 11/11/16 08:00 75 11/11/16 08:00 98.8 75 17 152/70 100 11/11/16 06:00 82 11/11/16 04:10 98 35 11/11/16 04:00 40 11/11/16 04:00 98.4 79 14 142/67 100 11/11/16 04:00 79 11/11/16 02:00 81 11/11/16 01:22 99 40 11/11/16 00:00 99.1 74 14 139/68 100 11/11/16 00:00 40 11/11/16 00:00 74 11/10/16 22:00 84 11/10/16 21:39 99 50 11/10/16 20:00 40 11/10/16 20:00 99.0 79 14 111/54 98 11/10/16 20:00 80 11/10/16 18:00 118 11/10/16 16:12 99 40 11/10/16 16:00 40 11/10/16 16:00 99.3 70 14 103/55 98 11/10/16 16:00 70 11/10/16 14:00 77 I/O 11/10/16 11/10/16 11/10/16 11/11/16 11/11/16 11/11/16 07:00 15:00 23:00 07:00 15:00 23:00 Intake Total 673 ml 927 ml 1199 ml 881 ml Output Total 650 ml 80 ml 2200 ml 600 ml Balance 23 ml 847 ml -1001 ml 281 ml IV Total 673 ml 745 ml 811 ml 401 ml Tube Feeding 32 ml 138 ml 420 ml Albumin 100 ml Other 150 ml 150 ml 60 ml Output Urine Total 450 ml 30 ml 2200 ml 600 ml Gastric Drainage Total 200 ml 50 ml Tube Feeding Residual Discard 0 ml Bladder Scan Volume Amount 628 ml # Bowel Movements 0 Physical Exam GENERAL: intubated and ventilated SKIN: Warm and dry. NECK: JVD normal - less than or equal to 5 cm H20. CARDIOVASCULAR: Regular rate and rhythm without murmurs, gallops or rubs. RESPIRATORY: Normal breath sounds - equal bilaterally. No accessory muscle use. No wheezes, rales or rubs. PERIPHERY: No cyanosis or edema. SHIPPING ROOM HELPER: Stable unable to examine fully as intubated and unresponsive Laboratory Laboratory Tests Test 11/11/16 08:50 Potassium Level 3.2 MEQ/L Phosphorus Level 2.8 MG/DL Imaging Last 48 hours Impressions Chest X-Ray 11/11/16 0823 Signed Impressions: Service Date/Time: October 08:50 - CONCLUSION: 1. Stable chest x-ray with bibasilar opacity likely representing small pleural effusions with associated volume loss and/or consolidation. 2. Stable enlargement of the cardiac silhouette. Neri Chavez MD Chest X-Ray 11/10/16 0000 Signed Impressions: Service Date/Time: Thursday, November 10, 2016 09:36 - CONCLUSION: 1. Interval improvement. 2. Persistent bibasilar parenchymal changes are noted worse on the right than the left. Andrew Haddad MD FACR Assessment and Plan Problem List: (1) Coronary artery disease (2) S/P CABG x 1 Assessment and Plan: Doing better no chest pain or evidence of infarction (3) COPD (chronic obstructive pulmonary disease) (4) Pleural effusion (5) PNA (pneumonia) (6) Afib Assessment and Plan: On eliquis (7) moderate pericardial effusion (8) ventilator dependent resp failure Assessment and Plan: On cpap being weaned off vent Assessment and Plan Overalll stable cv doing better extubate in next couple of days hopefully. Pam Westfall MD Nov 11, 2016 13:37
[2016-11-11] MEDS: AZITHROMYCIN INJ 500 MG in SODIUM CHLOR 0.9% 250 ML INJ 250 ML IV SCH (17:20)
[2016-11-11] MEDS: ATORVASTATIN 20 MG TAB PO SCH (22:14)
[2016-11-11] MEDS: FUROSEMIDE 20 MG/2 ML VIAL IV PUSH SCH (22:14)
[2016-11-12] VITALS (20 sets, daily range): BP systolic 121–170; BP diastolic 60–83; PULSE 71–82; RESP 19–32; TEMP 98.1–99.4; O2SAT 95–100
[2016-11-12] MEDS: RESP: ALBUTEROL 2.5 MG/IPRATROPIUM 0.5 MG NEB (SCH) NEB ×4 (03:25→20:57)
[2016-11-12] MEDS: PIPERACIL-TAZO 4.5 GM PREMIX 100 ML IV SCH ×4 (03:29→20:17)
[2016-11-12 05:28] LABS: AUTOMATED NEUTROPHIL # 10.4 TH/MM3 (1.8-7.7); BASOPHIL % 0.2 % (0.0-2.0); HEMATOCRIT 25.6 % (39.0-51.0); LYMPH % 3.6 % (9.0-44.0); LYMPHOCYTE # 0.4 TH/MM3 (1.0-4.8); MEAN CELL VOLUME 92.9 FL (80.0-100.0); MEAN CORPUSCULAR HEMOGLOBIN 31.2 PG (27.0-34.0); MEAN CORPUSCULAR HGB CONC 33.6 % (32.0-36.0); MONO % 7.8 % (0.0-8.0); NEUT % 88.4 % (16.0-70.0); PLATELET COUNT 398 TH/MM3 (150-450); RED BLOOD COUNT 2.76 MIL/MM3 (4.50-5.90); RED CELL DISTRIBUTION WIDTH 14.3 % (11.6-17.2); WHITE BLOOD COUNT 11.8 TH/MM3 (4.0-11.0)
[2016-11-12 05:37] LABS: HEMO FLAGS AUTO DIFF
[2016-11-12] MEDS: PROPOFOL 1000 MG/100 ML IV SCH (05:55)
[2016-11-12 05:58] LABS: BICARBONATE 37.8 MEQ/L (21.0-32.0); POTASSIUM 3.9 MEQ/L (3.5-5.1)
[2016-11-12 07:06] LABS: PLATELET ESTIMATE SMEAR HIGH (NORMAL); PLATELET MORPHOLOGY NORMAL (NORMAL); SCAN/DIFF AUTO DIFF CONFIRMED
[2016-11-12] MEDS: methylPREDNISolone SOD SUCC 40 MG/1 ML VIAL IV PUSH SCH ×2 (08:13→20:18)
[2016-11-12] MEDS: BENEPROTEIN POWDER 1 PACK G-TUBE SCH ×3 (08:13→16:53)
[2016-11-12] MEDS: DOCUSATE SODIUM 100 MG CAP PO SCH ×2 (08:13→20:18)
[2016-11-12] MEDS: SALMETEROL XINAFOATE 50 MCG DISKUS INH SCH ×2 (08:13→21:00)
[2016-11-12] MEDS: FUROSEMIDE 20 MG/2 ML VIAL IV PUSH SCH ×2 (08:13→20:17)
--- NOTE | 2016-11-12 09:41 | HHI.CCPN ---
Subjective Remarks/Hospital Course 86-year-old male with past medical history significant for COPD, coronary artery disease, s/p minimally invasive CABG x1 vessel on 10/19/16, discharged on , chronically on 1 L O2 at home who presented with worsening SOB. Patient was admitted to the hospital service on 11/08/16 with diagnosis of acute CHF and COPD exacerbation, probable healthcare associated pneumonia. A CT angiogram was negative for pulmonary embolism, but moderate pericardial effusion. Patient was placed on broad-spectrum antibiotics Zosyn and azithromycin. Also placed on steroids and breathing treatments. Patient was started on IV Lasix for CHF exacerbation. Chest x-ray showed chronically elevated left hemidiaphragm with left basilar atelectasis, questionable left effusion. Initial WBC 13.9. Apparently overnight his respiratory status worsened and he was placed on BiPAP. ABG after 1 hour BiPAP showed pH of 7.2 PCO2 102 and a PO2 of 120. At that time Dr. Beckett talked with the patient and he was made a DNR. Patient's mental status continued to deteriorate, requiring sedation with Ativan and restraints. Dr. Silva from pulmonology was consulted for respiratory failure. He knows patient from outpatient, and felt that patient did not want to be a DNR, unless care was deemed futile. According to Dr. Silva patient " did not want to live on machines" but temporary intubation was okay. After discussion with Family DNR was rescinded. Critical care medicine was consulted for acute hypoxemic and hypercarbic respiratory failure with encephalopathy. I evaluated the patient immediately. Patient remains on BiPAP but unresponsive. I discussed with the patient's family, patient is unable to protect his airway clearly. I proceeded with endotracheal intubation and placed the patient on mechanical ventilation. A STAT Echo report is pending SUBJ 11/10/16 Remains intubated, sedated. FiO2 down to 40%. Follows commands when sedation lightened. CXR and labs pending at this time. Levophed at 8 mcg/min 11/11: wakes up easily follows commands on lightening sedation. Chest x-ray stable to interval improvement. Weaned off Levophed. FiO2 down to 35%, will start weaning trials 11/12: Appears to be tolerating CPAP better today 04/21. Urine output adequate, achieve a negative balance on Lasix. Chest x-ray is pending at this time. Remains off Levophed Objective Vital Signs Date Time Temp Pulse Resp B/P Pulse Ox O2 Delivery O2 Flow Rate FiO2 11/12/16 08:52 99 35 11/12/16 06:00 72 11/12/16 04:00 98.6 22 135/63 11/09/16 07:00 Bi-Pap 11/09/16 02:00 3.00 Intake and Output 11/11/16 11/11/16 11/12/16 08:00 16:00 00:00 Intake Total 881 ml 844 ml 1180 ml Output Total 600 ml 1775 ml 800 ml Balance 281 ml -931 ml 380 ml Result Diagram: 11/12/16 0510 11/12/16 0510 Other Results Microbiology Date/Time Procedure Status Source Growth 11/09/16 15:34 Gram Stain - Final Complete Sputum Endotracheal 11/09/16 15:34 Sputum Culture - Final Complete Sputum Endotracheal RARE GROWTH NORMAL RESPIRATORY BENNIE Imaging CT angiogram was negative for pulmonary embolism, but with moderate pericardial effusion. L LL atelectasis Chest x-ray showed chronically elevated left hemidiaphragm with left basilar atelectasis, questionable left effusion Objective Remarks GENERAL: This is a well-nourished, well-developed patient, sedated with propofol SKIN: No rashes, ecchymoses or lesions. Cool and dry. HEAD: Atraumatic. Normocephalic. EYES: Pupils equal round and reactive. No injection or drainage. ENT: Orotracheally intubated NECK: Trachea midline. No JVD or lymphadenopathy. Supple, nontender, no meningeal signs. CARDIOVASCULAR: Atrial fibrillation with RVR. +2 edema bilateral lower extremities up to the knees. Heart sounds are distant RESPIRATORY: Diminished breath sounds with few basilar crackles. No wheezes, rales, or rhonchi. GASTROINTESTINAL: Abdomen soft, non-tender, nondistended. No hepato-splenomegaly , or palpable masses. No guarding. MUSCULOSKELETAL: Lower extremities with 2+ edema. NEUROLOGICAL: Patient remains intubated sedated. On sedation lightening wakes up and follows commands. No FND A/P Assessment and Plan NEURO: Acute metabolic encephalopathy CO2 narcosis -Intubated for airway protection -Propofol for sedation and ventilator synchrony -Daily sedation vacation RESP: Acute hypercarbic and hypoxemic respiratory failure Probable HCAP Acute COPD exacerbation -Intubated and placed on mechanical ventilation. PRVC/AC 14/500/8 -DuoNeb every 6 hours scheduled and when necessary -Continue IV Solu-Medrol -CPAP trial failed yesterday, attempt today CV: CHF exacerbation Pericardial effusion Shock, most likely septic Status post minimally invasive CABG 10/19/16 Chronic atrial fibrillation -Levophed to keep MAP >65, now off -IV Lasix resume 20 mg IV BID, give additional 20 mg IVP -Stat 2D echo -no evidence of tamponade per Dr. Choi -CTS Dr. Dominguez, Cardiology Dr. Westfall GI: -Nothing by mouth. IV Protonix -Tube feeding with Jevity, hold for possible extubation : Hematuria History of prostate cancer -Continue CBI for now. Urology Dr. Barger -Monitor renal function closely. Broderick catheter. -IV Lasix 20 mg IV BID and additional 20 mg IVx1 ID: Sepsis Probable healthcare associated pneumonia -F/U on blood sputum and urine cultures -Continue azithromycin and Zosyn HEME: -Monitor CBC, CMP. coags -Holding Xarelto and aspirin given significant hematuria, with clots ENDO: -Electrolyte replacement protocol PROPH: -Bilateral lower extremity SCDs. Protonix 40 mg IV daily. -No chemical DVT prophylaxis due to hematuria LINES: -Utilize peripheral IVs, L subclavian central line placed by Dr. Núñez Level 3 Janet He MD Nov 12, 2016 09:41
--- NOTE | 2016-11-12 10:00 | HHI.PR ---
Subjective Patient symptoms today Pt seen and examined. Still with hematuria. Ureña changed out a bedside to 24F and irrigated out clots to clear. Objective Vital Signs Vital Signs Date Time Temp Pulse Resp B/P Pulse Ox O2 Delivery O2 Flow Rate FiO2 11/12/16 08:52 99 35 11/12/16 06:14 100 35 11/12/16 06:00 72 11/12/16 04:00 79 11/12/16 04:00 98.6 79 22 135/63 98 11/12/16 04:00 35 11/12/16 03:28 99 35 11/12/16 02:00 71 11/12/16 00:05 99 35 11/12/16 00:00 98.8 74 19 121/60 99 11/12/16 00:00 35 11/12/16 00:00 74 11/11/16 22:31 97 35 11/11/16 22:00 80 11/11/16 20:00 35 11/11/16 20:00 99.2 74 20 138/85 99 11/11/16 20:00 73 11/11/16 18:00 73 11/11/16 16:21 96 35 11/11/16 16:00 80 11/11/16 16:00 35 11/11/16 16:00 98.4 73 22 143/67 98 11/11/16 14:00 80 11/11/16 12:26 94 35 11/11/16 12:00 35 11/11/16 12:00 73 11/11/16 12:00 98.8 74 21 154/74 97 11/11/16 10:00 80 Intake & Output 11/12/16 11/12/16 07:00 19:00 Intake Total 1756 ml Output Total 1850 ml Balance -94 ml IV Total 787 ml Tube Feeding 819 ml Other 150 ml Output Urine Total 1850 ml Result Diagram: 11/12/16 0511/12/16 0510 Objective Remarks Abd:soft,nt,nt Ureña irrigated at bedside. No clots. Urine clear. 11/12 Abd:soft,nt,nd Ureña now clear. Medications and IVs Current Medications Medications (Trade) Dose Ordered Sig/Darryl Route Start Time Stop Time Status Last Admin (NS Flush) 2 ml UNSCH PRN IVF 11/08/16 14:30 (Tylenol) 650 mg Q4H PRN PO 11/08/16 18:00 (Zofran Inj) 4 mg Q6H PRN IVP 11/08/16 18:00 (Milk Of Magnesia Liq) 30 ml Q12HR PRN PO 11/08/16 18:00 11/10/16 08:03 (Senokot) 17.2 mg Q12HR PRN PO 11/08/16 21:00 Naloxone HCl 0.4 mg 0.4 mg UNSCH PRN IV 11/08/16 17:45 (Zithromax Inj/ NS 250 ml Inj) 250 ml @ 250 mls/hr Q24H IV 11/09/16 18:00 11/11/16 17:20 (Lasix Inj) 20 mg BID IV PUSH 11/08/16 21:00 11/12/16 08:13 (Lopressor) 12.5 mg Q12HR PO 11/08/16 21:00 Hold (Eliquis) 5 mg BID PO 11/08/16 21:00 Hold 11/08/16 21:02 (Ecotrin Ec) 81 mg DAILY PO 11/09/16 09:00 Hold (Lipitor) 20 mg HS PO 11/08/16 21:00 11/11/16 22:14 (Serevent Diskus Inh) 50 mcg BID INH 11/08/16 21:00 11/11/16 04:26 (Colace) 100 mg BID PO 11/08/16 21:00 11/12/16 08:13 Lisinopril 5 mg 5 mg DAILY PO 11/09/16 09:00 Hold (Zosyn 4.5 Gm Premix) 100 ml @ 200 mls/hr Q6H IV 11/09/16 14:00 11/12/16 08:13 Lorazepam 1 mg 1 mg Q4H PRN IV PUSH 11/09/16 08:30 11/09/16 10:36 (Levophed-Dextrose Drip) 250 ml @ 0 mls/hr TITRATE IV 11/09/16 16:15 11/10/16 05:17 Hyoscyamine Sulfate 0.25 mg 0.25 mg Q6H PRN SL 11/09/16 17:00 11/10/16 18:44 Propofol 100 ml @ 0 mls/hr TITRATE IV 11/09/16 17:15 11/12/16 05:55 Potassium Chloride 100 ml @ 50 mls/hr Q2H PRN IV 11/10/16 08:15 11/11/16 10:06 (KCl 20 Meq Premix Inj) 100 ml @ 50 mls/hr Q2H PRN IV 11/10/16 08:15 11/10/16 12:01 Potassium Bicarb/ Potassium Chloride 50 meq 50 meq UNSCH PRN PO 11/10/16 08:15 Potassium Chloride 100 ml @ 25 mls/hr UNSCH PRN IV 11/10/16 08:15 Potassium Chloride 100 ml @ 50 mls/hr Q2H PRN IV 11/10/16 08:15 (Magnesium Sulfate Inj/NS Inj) 100 ml @ 50 mls/hr UNSCH PRN IV 11/10/16 08:15 Magnesium Oxide 800 mg 800 mg UNSCH PRN PO 11/10/16 08:15 (Magnesium Sulfate Inj/NS Inj) 100 ml @ 50 mls/hr UNSCH PRN IV 11/10/16 08:15 Potassium Phosphate 2000 mg 2,000 mg Q4H PRN PO 11/10/16 08:15 (Sodium Phosphate Inj/NS 250 ml Inj) 250 ml @ 42 mls/hr UNSCH PRN IV 11/10/16 08:15 11/10/16 10:27 (K-Phos) 2,000 mg UNSCH PRN PO/TUBE 11/10/16 08:15 (Beneprotein Powder) 1 pack TID G-TUBE 11/10/16 09:00 11/12/16 08:13 (SoluMEDROL INJ) 40 mg BID IV PUSH 11/11/16 21:00 11/12/16 08:13 Assessment and Plan Assessment and Plan 86-year-old male with history of prostate cancer and recent Ureña trauma. Continue CBI for now. Irrigate Ureña when necessary. Obtain old records as to prostate cancer history and question will history of radiation therapy in the past. We'll follow with you and thank you for the consult and allowing me to precipitate in the care of this patient. 11/11 86 y.o male with h/o CaP s/p XRT therapy in the past with recent ureña trauma Ween CBI as urine remains clear Maintain ureña for a least one week to allow urethra to heal. 11/12 86 y.o male with h/o CaP s/p XRT therapy in the past with recent ureña trauma. Ureña changed out to 24F and irrigated out clots to clear. Irrigate manually prn clots. Loyd Barger DO Nov 12, 2016 10:00
--- NOTE | 2016-11-12 10:11 | RADRPT ---
EXAM DATE/TIME: 11/12/2016 09:11 [facility] COMPARISON: CHEST SINGLE AP, November 11, 2016, 8:50. INDICATIONS : Evaluate for respiratory disease. MEDICAL HISTORY : Carcinoma, prostate. Cardiovascular disease SURGICAL HISTORY : None. ENCOUNTER: Subsequent ACUITY: 4 - 6 days PAIN SCORE: 0/10 LOCATION: Bilateral chest FINDINGS: ET tube, nasogastric tube, and central venous catheter are in good position. Heart is enlarged. Mil d interstitial edema is present. Minimal bibasilar parenchymal changes are noted. CONCLUSION: Stable chest with cardiomegaly and mild interstitial edema. Andrew Haddad MD FACR on November 12, 2016 at 10:03 Board Certified Radiologist. This report was verified electronically.
[2016-11-12] MEDS ORDERED: FUROSEMIDE 20 MG/2 ML VIAL IV PUSH ONE (10:15)
--- NOTE | 2016-11-12 11:22 | HHI.HCPN ---
Reason for visit a. To assist with evaluation and management of symptoms including: dyspnea b. To assist medical decision maker(s) with: better understanding of current medical conditions; weighing benefits/burdens of medical treatment options; making medical treatment decisions. Subjective/Interval History Pt seen to follow up on dyspnea, comfort. Stable past few days- remains on mech vent, progressive weaning, today thomas CPAP , [id number]% may extubate later today per audio visual facilities engineer. has been off pressors . WBC trending down--11. Afebrile. BC from 11/08 NGTD. sputum from 11/09 = norm resp julio. CXR stable cont w bibasilar parenchymal changes, mild interstitial edema. COntinued to have hematuria 2/2 to ureña catheter trauma, urology consulted/following. Requested records from prior prostate CA tx. Hematuria stable,cont prn bladder irrigation. Pt seen in room, no family present. Alert on mech vent, nods to simple yes/no questions. Explore hospitalization , intubation to him he nods in agreement seems to have a basic understanding. He does follow commands moves all 4 extremities. Denies pain or discomfort. Nursing informs family has left for a few hours to return later once he is extubated. Nursing informs that during interaction with patient he seemed to be increasingly tachypneic and anxious. I am available later when family arrives if they have additional questions/concerns, contact # left. Reintubation status should be addressed w pt , with family present, post extubation when reasonable to discuss. . Advance Directives Living Will: Never completed Health Care Surrogate: Never completed Durable Power of Channeler Runner: Never completed Objective Vital Signs Date Time Temp Pulse Resp B/P Pulse Ox O2 Delivery O2 Flow Rate FiO2 11/12/16 10:00 76 11/12/16 08:52 99 35 11/12/16 08:00 99.4 76 22 154/75 100 11/12/16 08:00 77 11/12/16 08:00 35 11/12/16 06:14 100 35 11/12/16 06:00 72 11/12/16 04:00 79 11/12/16 04:00 98.6 79 22 135/63 98 11/12/16 04:00 35 11/12/16 03:28 99 35 11/12/16 02:00 71 11/12/16 00:05 99 35 11/12/16 00:00 98.8 74 19 121/60 99 11/12/16 00:00 35 11/12/16 00:00 74 11/11/16 22:31 97 35 11/11/16 22:00 80 11/11/16 20:00 35 11/11/16 20:00 99.2 74 20 138/85 99 11/11/16 20:00 73 11/11/16 18:00 73 11/11/16 16:21 96 35 11/11/16 16:00 80 11/11/16 16:00 35 11/11/16 16:00 98.4 73 22 143/67 98 11/11/16 14:00 80 11/11/16 12:26 94 35 11/11/16 12:00 35 11/11/16 12:00 73 11/11/16 12:00 98.8 74 21 154/74 97 Intake & Output 11/12/16 11/12/16 07:00 19:00 Intake Total 1756 ml Output Total 1850 ml Balance -94 ml IV Total 787 ml Tube Feeding 819 ml Other 150 ml Output Urine Total 1850 ml Physical Exam CONSTITUTIONAL/GENERAL: This is an adequately nourished patient, on BiPAP mask, no apparent distress TUBES/LINES/DRAINS: Peripheral IV right upper extremity, Ureña catheter, BiPAP mask SKIN: No jaundice, rashes, or lesions. No wounds seen anteriorly. Skin temperature appropriate. HEAD: Atraumatic. Normocephalic. EYES: Eyes closed did not force open for exam ENT: Unable to visualize oropharynx or nasal passages due to BiPAP mask. NECK: Trachea midline. Supple, nontender. CARDIOVASCULAR: Atrial fib noted on bedside monitor. Unable to auscultate heart sounds 2-D echo in process. No JVD. Peripheral pulses symmetric. RESPIRATORY/CHEST: Symmetric, unlabored respirations via BiPAP. Clear to auscultation, decreased air movement. Unable to listen to left side due to 2-D echo. GASTROINTESTINAL: Abdomen soft, no apparent tenderness, nondistended. No hepato- splenomegaly, or palpable masses. Bowel sounds present. GENITOURINARY: Without palpable bladder distension. Ureña catheter in place- draining dark brown red urine. NEUROLOGICAL: Lethargic, minimally sisters to exam. Does localize to touch on all 4 extremities and moves all 4 extremities. PSYCHIATRIC: No obvious anxiety/depression-lethargicsedated, limited exam. Diagnostic Tests Laboratory Laboratory Tests Test 11/09/16 11/10/16 11/11/16 11/11/16 15:55 06:00 08:50 23:00 Blood Gas Puncture Site RT RADIAL Blood Gas Patient Temperature 98.6 Blood Gas HCO3 34 mmol/L (22-26) Blood Gas Base Excess 10.9 mmol/L (-2-2) Blood Gas Oxygen Saturation 92 % (90-100) Arterial Blood pH 7.57 (7.380-7.420) Arterial Blood Partial 37 mmHg (38-42) Pressure CO2 Arterial Blood Partial 63 mmHg Pressure O2 (61-120) Arterial Blood Oxygen Content 12.7 Vol % (12.0-20.0) Arterial Blood 1.8 % (0-4) Carboxyhemoglobin Arterial Blood Methemoglobin 0.8 % (0-2) Blood Gas Hemoglobin 9.8 G/DL (12.0-16.0) Oxygen Delivery Device VENTILATOR Blood Gas Ventilator Setting Blood Gas Inspired Oxygen 50 % White Blood Count 13.4 TH/MM3 (4.0-11.0) Red Blood Count 3.02 MIL/MM3 (4.50-5.90) Hemoglobin 9.6 GM/DL (13.0-17.0) Hematocrit 28.0 % (39.0-51.0) Mean Corpuscular Volume 92.7 FL (80.0-100.0) Mean Corpuscular Hemoglobin 31.9 PG (27.0-34.0) Mean Corpuscular Hemoglobin 34.4 % Concent (32.0-36.0) Red Cell Distribution Width 13.7 % (11.6-17.2) Platelet Count 530 TH/MM3 (150-450) Mean Platelet Volume 7.3 FL (7.0-11.0) Sodium Level 140 MEQ/L (136-145) Potassium Level 3.2 MEQ/L 3.2 MEQ/L 3.6 MEQ/L (3.5-5.1) (3.5-5.1) (3.5-5.1) Chloride Level 93 MEQ/L (98-107) Carbon Dioxide Level 37.3 MEQ/L (21.0-32.0) Anion Gap 10 MEQ/L (5-15) Blood Urea Nitrogen 28 MG/DL (7-18) Creatinine 1.16 MG/DL (0.60-1.30) Estimat Glomerular Filtration 60 ML/MIN (>89) Rate Random Glucose 207 MG/DL (74-106) Calcium Level 8.6 MG/DL (8.5-10.1) Phosphorus Level 1.8 MG/DL 2.8 MG/DL (2.5-4.9) (2.5-4.9) Magnesium Level 2.1 MG/DL (1.5-2.5) Test 11/12/16 05:10 White Blood Count 11.8 TH/MM3 (4.0-11.0) Red Blood Count 2.76 MIL/MM3 (4.50-5.90) Hemoglobin 8.6 GM/DL (13.0-17.0) Hematocrit 25.6 % (39.0-51.0) Mean Corpuscular Volume 92.9 FL (80.0-100.0) Mean Corpuscular Hemoglobin 31.2 PG (27.0-34.0) Mean Corpuscular Hemoglobin 33.6 % Concent (32.0-36.0) Red Cell Distribution Width 14.3 % (11.6-17.2) Platelet Count 398 TH/MM3 (150-450) Mean Platelet Volume 7.2 FL (7.0-11.0) Neutrophils (%) (Auto) 88.4 % (16.0-70.0) Lymphocytes (%) (Auto) 3.6 % (9.0-44.0) Monocytes (%) (Auto) 7.8 % (0.0-8.0) Eosinophils (%) (Auto) 0.0 % (0.0-4.0) Basophils (%) (Auto) 0.2 % (0.0-2.0) Neutrophils # (Auto) 10.4 TH/MM3 (1.8-7.7) Lymphocytes # (Auto) 0.4 TH/MM3 (1.0-4.8) Monocytes # (Auto) 0.9 TH/MM3 (0-0.9) Eosinophils # (Auto) 0.0 TH/MM3 (0-0.4) Basophils # (Auto) 0.0 TH/MM3 (0-0.2) CBC Comment AUTO DIFF Differential Comment AUTO DIFF CONFIRMED Platelet Estimate HIGH (NORMAL) Platelet Morphology Comment NORMAL (NORMAL) Sodium Level 145 MEQ/L (136-145) Potassium Level 3.9 MEQ/L (3.5-5.1) Chloride Level 102 MEQ/L (98-107) Carbon Dioxide Level 37.8 MEQ/L (21.0-32.0) Anion Gap 5 MEQ/L (5-15) Blood Urea Nitrogen 38 MG/DL (7-18) Creatinine 1.15 MG/DL (0.60-1.30) Estimat Glomerular Filtration 61 ML/MIN (>89) Rate Random Glucose 158 MG/DL (74-106) Calcium Level 8.3 MG/DL (8.5-10.1) Result Diagram: 11/12/16 0510 11/12/1610 Microbiology Microbiology Date/Time Procedure Status Source Growth 11/09/16 15:34 Gram Stain - Final Complete Sputum Endotracheal 11/09/16 15:34 Sputum Culture - Final Complete Sputum Endotracheal RARE GROWTH NORMAL RESPIRATORY JULIO Assessment and Plan Disease Oriented Problem List: (1) Pleural effusion (2) Coronary artery disease (3) Hypoxemia (4) COPD (chronic obstructive pulmonary disease) (5) Hypertension (6) Afib (7) Hospital acquired PNA (8) Acute respiratory failure (9) S/P CABG x 1 Symptom Scale: (1) Dyspnea (2) Agitation Pertinent Non-Medical Issues Psychosocial:Lives locally with his . He is supported by 2 adult children who live out of the area. Very active, prior to recent cardiovascular surgery played golf about 4 times a week, 18 holes. Spiritual: No particular hindu affiliation, does not want planning associate support per Legal: No advanced directives. would be legal decision maker per [place] statutes. Ethical issues impacting care: Important Contacts Sally Key [phone] . Prognosis This patient was admitted for/24 with acute shortness of breath and worsening edema to lower extremities. Recently underwent minimally invasive one-vessel CABG surgery here. Uneventful recovery, had been doing well at home until the past few days. Now with acute respiratory failure, pleural effusion, possible pericardial effusion. Based on currently available information appears conditions may be treatable and possible patient can recover to status prior to admission though does remain at risk for further consultation/setbacks due to advanced age and multiple underlying conditions. Code Status: Full Code Plan * Legal decision maker: No advanced directives. Per [place] statutes would be appropriate legal decision maker. * Goals:Met with patient , daughter at bedside at length at initial consultation. GOALS aggressive. pt has improved over past few days, probable extubation later today. Presumed goals would remain aggressive ---> Reintubation status should be addressed w pt, with family present, post extubation when reasonable to discuss. I am available for pt/family if they arrive later today. * CODE STATUS: Full code * SYMPTOMS: --Dyspnea: On CPAP mech vent, breathing comfortable no sedation. Probable extubation later today. CXR stable. Will cont to evaluate. --Agitation: Previously with some episodes of agitation and pulling off mask , now intubated, had been on light sedation/diprivan. Comfortable on no sedation , CPAP currently, denies any discomfort. No sx agitation per nsg will cont to evaluate. --Pain: Patient spouse indicates no chronic pain syndromes or other complaints of pain/ will continue to evaluate-- today during eval pt denies pain or discomfort. . Will cont to evaluate. * Palliative care will continue to follow during hospital course as condition evolves, to assist patient/decision-maker with understanding of medical conditions, weighing benefits/burdens of treatment options, for clarification of goals of treatment. Additionally will assist with any symptoms of palliative concern Attestation To help prompt me to consider important information that might be impacting today's encounter and assessment, information from prior notes written by myself or my colleagues may have been "brought forward" into today's note. My signature on this note, however, is an attestation that I personally performed the exam, history, and/or decision-making noted today, and, unless otherwise indicated, the interactions with patient, family, and staff as well as the review of records all occurred today. I also attest that the listed assessment and stated plan reflect my best clinical judgment today based on the combination of historical information, prior notes, and today's exam/ interactions. When time spent is documented, it refers only to time spent today by the signer, or if indicated, combined time spent today by collaborating physician/nurse practitioner. Keyona Hernandez Nov 12, 2016 11:22
[2016-11-12 11:45] LABS: BLOOD GAS BASE EXCESS 11.8 mmol/L (-2-2); BLOOD GAS CARBOXYHEMOGLOBIN 1.3 % (0-4); BLOOD GAS HCO3 36 mmol/L (22-26); BLOOD GAS METHEMOGLOBIN 0.7 % (0-2); BLOOD GAS O2 HGB SATURATION 92 % (90-100); BLOOD GAS OXYGEN CONTENT 13.1 Vol % (12.0-20.0); BLOOD GAS PCO2 47 mmHg (38-42); BLOOD GAS PO2 72 mmHg (61-120); BLOOD GAS TOTAL HGB 10.1 G/DL (12.0-16.0); TEMP CORR TO 98.6
[2016-11-12 11:46] LABS: CRITICAL VALUE NO; DRAW SITE RT RADIAL; FIO2 35 %; NUMBER OF ARTERIAL PUNCTURES 1; OXYGEN DEVICE VENTILATOR; STAT NO; ULNAR PULSE PRESENT; VENT SETTINGS CPAP 5/PS 8
[2016-11-12] MEDS: LACTULOSE SYRUP 20 GM/30 ML CUP PO SCH ×2 (16:30→20:18)
[2016-11-12] MEDS: AZITHROMYCIN INJ 500 MG in SODIUM CHLOR 0.9% 250 ML INJ 250 ML IV SCH (16:54)
--- NOTE | 2016-11-12 17:25 | PD.CAR.PN ---
CVT Progress Note Subjective/Hospital Course: 86/ male recent hx of chest pain eval by Dr Westfall and underwent nuclear stress test which was abnormal and underwent elective cardiac cath / revealing 95% LAD stenosis and preserved LV function PMH: HTN, GERD, COPD prostate CA surgery: 10/19 Minimally Invasive Coronary Artery Bypass Grafting x 1 (MIDCAB) with MONTERO to LAD / discharge 10/23/16 pt presented to ED today with significant dyspnea + lower ext edema CXR showed elevated left hemidiaphragm, prior hx , atelectasis / elevated WBC, concern for possible PNA US during his admission possible left effusion/ not enough fluid to drain at that time agree with dideioning, may need 2decho to re-eval EF agree with ABX 11/09/16 pt had worsening Resp symptoms , not improved with Bipap now intubated, CT chest noted Left lower PNA , moderate pericardial effusion 2d echo pending Dr Dominguez aware CCM following 11/10 remains on vent PRVC mode / 40% FI02 sedated on propofol lung sounds improved, ECHO noted EF 60% small to mod pericardial effusion, no hemodynamic compromise no surgical intervention at this time per Dr Dominguez hopefully wean and extubate soon 11/12 pt on CPAP , tolerating well hopefully extubate today awake alert and following commands Objective: GENERAL: awake, alert orally intubated SKIN: Warm and dry. HEAD: Normocephalic. EYES: No scleral icterus. No injection or drainage. NECK: Supple, trachea midline. No JVD or lymphadenopathy. CARDIOVASCULAR: Regular rate and rhythm without murmurs, gallops, or rubs. RESPIRATORY: Breath sounds equal bilaterally. few scattered breath sounds No accessory muscle use. GASTROINTESTINAL: Abdomen soft, non-tender, nondistended. MUSCULOSKELETAL: No cyanosis, or edema. BACK: Nontender without obvious deformity. No CVA tenderness. Vital Signs Date Time Temp Pulse Resp B/P Pulse Ox O2 Delivery O2 Flow Rate FiO2 11/12/16 16:46 100 Nasal Cannula 3.00 11/12/16 16:00 98.9 77 23 169/78 98 11/12/16 16:00 79 11/12/16 14:00 78 11/12/16 12:30 79 11/12/16 12:25 96 Nasal Cannula 3 11/12/16 12:00 77 11/12/16 12:00 35 11/12/16 12:00 98.6 82 28 170/83 97 11/12/16 10:00 76 11/12/16 08:52 99 35 11/12/16 08:00 99.4 76 22 154/75 100 11/12/16 08:00 77 11/12/16 08:00 35 11/12/16 06:14 100 35 11/12/16 06:00 72 11/12/16 04:00 79 11/12/16 04:00 98.6 79 22 135/63 98 11/12/16 04:00 35 11/12/16 03:28 99 35 11/12/16 02:00 71 11/12/16 00:05 99 35 11/12/16 00:00 98.8 74 19 121/60 99 11/12/16 00:00 35 11/12/16 00:00 74 11/11/16 22:31 97 35 11/11/16 22:00 80 11/11/16 20:00 35 11/11/16 20:00 99.2 74 20 138/85 99 11/11/16 20:00 73 11/11/16 18:00 73 Labs: Laboratory Tests Test 11/12/16 11:32 Blood Gas Puncture Site RT RADIAL Blood Gas Patient Temperature 98.6 Blood Gas HCO3 36 mmol/L (22-26) Blood Gas Base Excess 11.8 mmol/L (-2-2) Blood Gas Oxygen Saturation 92 % (90-100) Arterial Blood pH 7.49 (7.380-7.420) Arterial Blood Partial 47 mmHg (38-42) Pressure CO2 Arterial Blood Partial 72 mmHg Pressure O2 (61-120) Arterial Blood Oxygen Content 13.1 Vol % (12.0-20.0) Arterial Blood 1.3 % (0-4) Carboxyhemoglobin Arterial Blood Methemoglobin 0.7 % (0-2) Blood Gas Hemoglobin 10.1 G/DL (12.0-16.0) Oxygen Delivery Device VENTILATOR Blood Gas Ventilator Setting CPAP 5/PS 8 Blood Gas Inspired Oxygen 35 % Result Diagram: 11/12/1650911/12/16509 Telemetry: NSR (1) Coronary artery disease (2) S/P CABG x 1 Plan: Doing better no chest pain or evidence of infarction/ resume low dose Aspirin (3) COPD (chronic obstructive pulmonary disease) Plan: on nebs (4) Pleural effusion (5) PNA (pneumonia) Plan: on antibiotic s (6) Afib Plan: On eliquis at home, hold for now, resume when ok with Dr Dominguez (7) moderate pericardial effusion (8) ventilator dependent resp failure Plan: On cpap being weaned off vent Ana García Nov 12, 2016 17:25
--- NOTE | 2016-11-12 18:39 | PD.CARD.PN ---
Subjective Subjective Remarks Overall stable, extubated Objective Medications Administered Medications Medications (Trade) Dose Ordered Sig/Darryl Route PRN Reason Start Time Stop Time Status Last Admin Dose Admin Magnesium Hydroxide 30 ml 30 ml Q12HR PRN PO CONSTIPATION 11/08/16 18:00 11/10/16 08:03 Azithromycin/ Sodium Chloride (Zithromax Inj/ NS 250 ml Inj) 250 ml @ 250 mls/hr Q24H IV 11/09/16 18:00 11/12/16 16:54 Furosemide (Lasix Inj) 20 mg BID IV PUSH 11/08/16 21:00 11/12/16 08:13 Apixaban (Eliquis) 5 mg BID PO 11/08/16 21:00 Hold 11/08/16 21:02 Atorvastatin Calcium (Lipitor) 20 mg HS PO 11/08/16 21:00 11/11/16 22:14 Salmeterol Xinafoate (Serevent Diskus Inh) 50 mcg BID INH 11/08/16 21:00 11/11/16 04:26 Docusate Sodium 100 mg 100 mg BID PO 11/08/16 21:00 11/12/16 08:13 Piperacillin Sod/ Tazobactam Sod (Zosyn 4.5 Gm Premix) 100 ml @ 200 mls/hr Q6H IV 11/09/16 14:00 11/12/16 13:10 Lorazepam 1 mg 1 mg Q4H PRN IV PUSH SEVERE ANXIETY OR AGITATION 11/09/16 08:30 11/09/16 10:36 Norepinephrine Bitartrate (Levophed-Dextrose Drip) 250 ml @ 0 mls/hr TITRATE IV 11/09/16 16:15 11/10/16 05:17 Hyoscyamine Sulfate 0.25 mg 0.25 mg Q6H PRN SL SECRETIONS 11/09/16 17:00 11/10/16 18:44 Propofol 100 ml @ 0 mls/hr TITRATE IV 11/09/16 17:15 11/12/16 05:55 Potassium Chloride 100 ml @ 50 mls/hr Q2H PRN IV For Potassium 2.8 - 3.2 mEq/L 11/10/16 08:15 11/11/16 10:06 Potassium Chloride 100 ml @ 50 mls/hr Q2H PRN IV For Potassium 2.8 - 3.2 mEq/L 11/10/16 08:15 11/10/16 12:01 Sodium Phosphate/ Sodium Chloride (Sodium Phosphate Inj/NS 250 ml Inj) 250 ml @ 42 mls/hr UNSCH PRN IV For Phosphorus < 2.5 mg/dL 11/10/16 08:15 11/10/16 10:27 Protein (Beneprotein Powder) 1 pack TID G-TUBE 11/10/16 09:00 11/12/16 08:13 Methylprednisolone Sodium Succinate (SoluMEDROL INJ) 40 mg BID IV PUSH 11/11/16 21:00 11/12/16 08:13 Vital Signs / I&O Vital Signs Date Time Temp Pulse Resp B/P Pulse Ox O2 Delivery O2 Flow Rate FiO2 11/12/16 16:46 100 Nasal Cannula 3.00 11/12/16 16:00 98.9 77 23 169/78 98 11/12/16 16:00 79 11/12/16 14:00 78 11/12/16 12:30 79 11/12/16 12:25 96 Nasal Cannula 3 11/12/16 12:00 77 11/12/16 12:00 35 11/12/16 12:00 98.6 82 28 170/83 97 11/12/16 10:00 76 11/12/16 08:52 99 35 11/12/16 08:00 99.4 76 22 154/75 100 11/12/16 08:00 77 11/12/16 08:00 35 11/12/16 06:14 100 35 11/12/16 06:00 72 11/12/16 04:00 79 11/12/16 04:00 98.6 79 22 135/63 98 11/12/16 04:00 35 11/12/16 03:28 99 35 11/12/16 02:00 71 11/12/16 00:05 99 35 11/12/16 00:00 98.8 74 19 121/60 99 11/12/16 00:00 35 11/12/16 00:00 74 11/11/16 22:31 97 35 11/11/16 22:00 80 11/11/16 20:00 35 11/11/16 20:00 99.2 74 20 138/85 99 11/11/16 20:00 73 I/O 4/27/17 11/11/16 11/11/16 11/12/16 11/12/16 11/12/16 07:00 15:00 23:00 07:00 15:00 23:00 Intake Total 881 ml 844 ml 1180 ml 576 ml 469 ml Output Total 600 ml 1775 ml 800 ml 1050 ml 1700 ml Balance 281 ml -931 ml 380 ml -474 ml -1231 ml IV Total 401 ml 386 ml 490 ml 297 ml 284 ml Tube Feeding 420 ml 398 ml 600 ml 219 ml 125 ml Other 60 ml 60 ml 90 ml 60 ml 60 ml Output Urine Total 600 ml 1775 ml 800 ml 1050 ml 1700 ml # Bowel Movements 0 Physical Exam GENERAL: intubated and ventilated SKIN: Warm and dry. NECK: JVD normal - less than or equal to 5 cm H20. CARDIOVASCULAR: Regular rate and rhythm without murmurs, gallops or rubs. RESPIRATORY: Normal breath sounds - equal bilaterally. No accessory muscle use. No wheezes, rales or rubs. PERIPHERY: No cyanosis or edema. LEAD PORTFOLIO MANAGER: Stable unable to examine fully as intubated and unresponsive Laboratory Laboratory Tests Test 11/11/16 11/12/16 11/12/16 23:00 05:10 11:32 Potassium Level 3.6 MEQ/L 3.9 MEQ/L White Blood Count 11.8 TH/MM3 Red Blood Count 2.76 MIL/MM3 Hemoglobin 8.6 GM/DL Hematocrit 25.6 % Mean Corpuscular Volume 92.9 FL Mean Corpuscular Hemoglobin 31.2 PG Mean Corpuscular Hemoglobin 33.6 % Concent Red Cell Distribution Width 14.3 % Platelet Count 398 TH/MM3 Mean Platelet Volume 7.2 FL Neutrophils (%) (Auto) 88.4 % Lymphocytes (%) (Auto) 3.6 % Monocytes (%) (Auto) 7.8 % Eosinophils (%) (Auto) 0.0 % Basophils (%) (Auto) 0.2 % Neutrophils # (Auto) 10.4 TH/MM3 Lymphocytes # (Auto) 0.4 TH/MM3 Monocytes # (Auto) 0.9 TH/MM3 Eosinophils # (Auto) 0.0 TH/MM3 Basophils # (Auto) 0.0 TH/MM3 CBC Comment AUTO DIFF Differential Comment AUTO DIFF CONFIRMED Platelet Estimate HIGH Platelet Morphology Comment NORMAL Sodium Level 145 MEQ/L Chloride Level 102 MEQ/L Carbon Dioxide Level 37.8 MEQ/L Anion Gap 5 MEQ/L Blood Urea Nitrogen 38 MG/DL Creatinine 1.15 MG/DL Estimat Glomerular Filtration 61 ML/MIN Rate Random Glucose 158 MG/DL Calcium Level 8.3 MG/DL Blood Gas Puncture Site RT RADIAL Blood Gas Patient Temperature 98.6 Blood Gas HCO3 36 mmol/L Blood Gas Base Excess 11.8 mmol/L Blood Gas Oxygen Saturation 92 % Arterial Blood pH 7.49 Arterial Blood Partial 47 mmHg Pressure CO2 Arterial Blood Partial 72 mmHg Pressure O2 Arterial Blood Oxygen Content 13.1 Vol % Arterial Blood 1.3 % Carboxyhemoglobin Arterial Blood Methemoglobin 0.7 % Blood Gas Hemoglobin 10.1 G/DL Oxygen Delivery Device VENTILATOR Blood Gas Ventilator Setting CPAP 5/PS 8 Blood Gas Inspired Oxygen 35 % Imaging Last 48 hours Impressions Chest X-Ray 11/12/16 0000 Signed Impressions: Service Date/Time: Saturday, November 12, 2016 09:11 - CONCLUSION: Stable chest with cardiomegaly and mild interstitial edema. Andrew Haddad MD FACR Chest X-Ray 11/11/16 0823 Signed Impressions: Service Date/Time: October 08:50 - CONCLUSION: 1. Stable chest x-ray with bibasilar opacity likely representing small pleural effusions with associated volume loss and/or consolidation. 2. Stable enlargement of the cardiac silhouette. Neri Chavez MD Assessment and Plan Problem List: (1) Coronary artery disease (2) S/P CABG x 1 (3) COPD (chronic obstructive pulmonary disease) (4) Pleural effusion (5) PNA (pneumonia) (6) Afib (7) moderate pericardial effusion (8) ventilator dependent resp failure Assessment and Plan Extubated, overall stable Pam Westfall MD Nov 12, 2016 18:39
[2016-11-12] MEDS: ATORVASTATIN 20 MG TAB PO SCH (20:17)
[2016-11-13] VITALS (15 sets, daily range): BP systolic 112–139; BP diastolic 56–91; PULSE 70–124; RESP 22–27; TEMP 97.8–98.7; O2SAT 91–97
[2016-11-13] MEDS: PIPERACIL-TAZO 4.5 GM PREMIX 100 ML IV SCH ×4 (01:07→19:52)
[2016-11-13] MEDS: METOPROLOL TARTRATE 25 MG TAB PO SCH ×4 (01:49→21:54)
[2016-11-13] MEDS: AMIODARONE 200 MG TAB PO SCH ×3 (01:49→20:17)
[2016-11-13] MEDS: RESP: ALBUTEROL 2.5 MG/IPRATROPIUM 0.5 MG NEB (SCH) NEB ×4 (03:56→22:01)
[2016-11-13] MEDS: BENEPROTEIN POWDER 1 PACK G-TUBE SCH ×3 (09:00→18:00)
[2016-11-13] MEDS: SALMETEROL XINAFOATE 50 MCG DISKUS INH SCH ×2 (09:00→20:17)
[2016-11-13] MEDS ORDERED: ASPIRIN 81 MG CHEW TAB CHEW SCH (09:00)
[2016-11-13] MEDS: methylPREDNISolone SOD SUCC 40 MG/1 ML VIAL IV PUSH SCH (09:39)
[2016-11-13] MEDS: LACTULOSE SYRUP 20 GM/30 ML CUP PO SCH ×2 (09:39→20:17)
[2016-11-13] MEDS: DOCUSATE SODIUM 100 MG CAP PO SCH ×2 (09:40→20:17)
[2016-11-13] MEDS: FUROSEMIDE 20 MG/2 ML VIAL IV PUSH SCH ×2 (09:40→20:17)
--- NOTE | 2016-11-13 10:08 | PD.TRANSFR ---
Transfer Summary Admission Date Nov 08, 2016 at 17:37 Admitting Diagnosis Diagnoses: (1) Acute respiratory failure Diagnosis: Principal (2) Hospital acquired PNA Diagnosis: Principal (3) CHF exacerbation Diagnosis: Principal (4) COPD (chronic obstructive pulmonary disease) Diagnosis: Principal (5) moderate pericardial effusion Diagnosis: Principal (6) Hematuria Diagnosis: Principal (7) Hypertension Diagnosis: Secondary (8) Afib Diagnosis: Secondary Transfer Summary/Subjective 86-year-old male with past medical history significant for COPD, coronary artery disease, s/p minimally invasive CABG x1 vessel on 10/19/16, discharged on , chronically on 1 L O2 at home who presented with worsening SOB. Patient was admitted to the hospital service on 11/08/16 with diagnosis of acute CHF and COPD exacerbation, probable healthcare associated pneumonia. A CT angiogram was negative for pulmonary embolism, but moderate pericardial effusion. Patient was placed on broad-spectrum antibiotics Zosyn and azithromycin. Also placed on steroids and breathing treatments. Patient was started on IV Lasix for CHF exacerbation. Chest x-ray showed chronically elevated left hemidiaphragm with left basilar atelectasis, questionable left effusion. Initial WBC 13.9. Apparently overnight his respiratory status worsened and he was placed on BiPAP. ABG after 1 hour BiPAP showed pH of 7.2 PCO2 102 and a PO2 of 120. At that time Dr. Beckett talked with the patient and he was made a DNR. Patient's mental status continued to deteriorate, requiring sedation with Ativan and restraints. Dr. Silva from pulmonology was consulted for respiratory failure. He knows patient from outpatient, and felt that patient did not want to be a DNR, unless care was deemed futile. According to Dr. Silva patient " did not want to live on machines" but temporary intubation was okay. After discussion with Family DNR was rescinded. Critical care medicine was consulted for acute hypoxemic and hypercarbic respiratory failure with encephalopathy. I evaluated the patient immediately. Patient remains on BiPAP but unresponsive. I discussed with the patient's family, patient is unable to protect his airway clearly. I proceeded with endotracheal intubation and placed the patient on mechanical ventilation. A STAT Echo did not show pericardial tamponade 11/10/16 Remains intubated, sedated. FiO2 down to 40%. Follows commands when sedation lightened. CXR and labs pending at this time. Levophed at 8 mcg/min 11/11: wakes up easily follows commands on lightening sedation. Chest x-ray stable to interval improvement. Weaned off Levophed. FiO2 down to 35%, will start weaning trials 11/12: Appears to be tolerating CPAP better today 04/21. Urine output adequate, achieve a negative balance on Lasix. Chest x-ray is pending at this time. Remains off Levophed 11/13: Extubated yesterday tolerating well. Developed AFIb with mild rapid ventricular response. Due to get by mouth amiodarone and metoprolol today Objective Vital Signs Date Time Temp Pulse Resp B/P Pulse Ox O2 Delivery O2 Flow Rate FiO2 11/13/16 06:00 106 11/13/16 04:00 97.9 27 138/70 95 11/13/16 00:43 Nasal Cannula 3.00 11/12/16 22:00 35 Intake and Output 11/12/16 11/12/16 11/13/16 08:00 16:00 00:00 Intake Total 576 ml 469 ml 410 ml Output Total 1050 ml 1700 ml 400 ml Balance -474 ml -1231 ml 10 ml Result Diagram: 11/12/16 0510 11/12/16 0510 Other Results Laboratory Tests Test 11/12/16 11:32 Blood Gas Puncture Site RT RADIAL Blood Gas Patient Temperature 98.6 Blood Gas HCO3 36 mmol/L (22-26) Blood Gas Base Excess 11.8 mmol/L (-2-2) Blood Gas Oxygen Saturation 92 % (90-100) Arterial Blood pH 7.49 (7.380-7.420) Arterial Blood Partial 47 mmHg (38-42) Pressure CO2 Arterial Blood Partial 72 mmHg Pressure O2 (61-120) Arterial Blood Oxygen Content 13.1 Vol % (12.0-20.0) Arterial Blood 1.3 % (0-4) Carboxyhemoglobin Arterial Blood Methemoglobin 0.7 % (0-2) Blood Gas Hemoglobin 10.1 G/DL (12.0-16.0) Oxygen Delivery Device VENTILATOR Blood Gas Ventilator Setting CPAP 5/PS 8 Blood Gas Inspired Oxygen 35 % Imaging CT angiogram was negative for pulmonary embolism, but with moderate pericardial effusion. L LL atelectasis Chest x-ray showed chronically elevated left hemidiaphragm with left basilar atelectasis, questionable left effusion Objective Remarks GENERAL: This is a well-nourished, well-developed patient off all sedation SKIN: No rashes, ecchymoses or lesions. Cool and dry. HEAD: Atraumatic. Normocephalic. EYES: Pupils equal round and reactive. No injection or drainage. ENT: Airway patent NECK: Trachea midline. No JVD or lymphadenopathy. Supple, nontender, no meningeal signs. CARDIOVASCULAR: Atrial fibrillation with RVR. +2 edema bilateral lower extremities up to the knees. Heart sounds are distant RESPIRATORY: Diminished breath sounds with few basilar crackles. No wheezes, rales, or rhonchi. GASTROINTESTINAL: Abdomen soft, non-tender, nondistended. No hepato-splenomegaly , or palpable masses. No guarding. MUSCULOSKELETAL: Lower extremities with 2+ edema. : Hematuria NEUROLOGICAL: Alert awake oriented no focal deficits Urinary Catheter: Yes Assessment to: Continue A/P Assessment and Plan NEURO: Acute metabolic encephalopathy CO2 narcosis -Intubated for airway protection, now extubated -Encephalopathy due to salt RESP: Acute hypercarbic and hypoxemic respiratory failure Probable HCAP Acute COPD exacerbation -Extubated 11/12, now on NC -DuoNeb every 6 hours scheduled and when necessary -Continue IV Solu-Medrol. EzPAP, Acapella -Up to chair CV: CHF exacerbation Pericardial effusion Shock, most likely septic Status post minimally invasive CABG 10/19/16 Chronic atrial fibrillation -IV Lasix resume 20 mg IV BID -Stat 2D echo -no evidence of tamponade per Dr. Choi -CTS Dr. Dominguez, Cardiology Dr. Westfall -Resumed metoprolol and amiodarone -Hold Xarelto due to persistent hematuria -Resume aspirin if ok with neurology GI: -Advance to heart hearty diet as tolerated. IV Protonix : Hematuria History of prostate cancer -Continue CBI for now. Urology Dr. Barger -Monitor renal function closely. Broderick catheter. -IV Lasix 20 mg IV BID ID: Sepsis Probable healthcare associated pneumonia -F/U on blood sputum and urine cultures -Continue azithromycin and Zosyn, complete 10 days HEME: -Monitor CBC, CMP. coags -Holding Xarelto and aspirin given significant hematuria, with clots ENDO: -Electrolyte replacement protocol PROPH: -Bilateral lower extremity SCDs. Protonix 40 mg IV daily. No chemical DVT prophylaxis due to hematuria LINES: -Utilize peripheral IVs, L subclavian central line placed by Dr. Núñez Level 2 H consulted to assume care in am 11/14/16. Janet He MD Nov 13, 2016 10:08
[2016-11-13 10:57] LABS: AUTOMATED NEUTROPHIL # 11.4 TH/MM3 (1.8-7.7); BASOPHIL # 0.1 TH/MM3 (0-0.2); BASOPHIL % 0.5 % (0.0-2.0); EOSINOPHIL % 0.2 % (0.0-4.0); HEMATOCRIT 29.3 % (39.0-51.0); LYMPH % 5.8 % (9.0-44.0); LYMPHOCYTE # 0.8 TH/MM3 (1.0-4.8); MEAN CELL VOLUME 94.4 FL (80.0-100.0); MEAN CORPUSCULAR HEMOGLOBIN 31.4 PG (27.0-34.0); MEAN CORPUSCULAR HGB CONC 33.2 % (32.0-36.0); MONO % 5.9 % (0.0-8.0); NEUT % 87.6 % (16.0-70.0); PLATELET COUNT 433 TH/MM3 (150-450); RED CELL DISTRIBUTION WIDTH 14.4 % (11.6-17.2)
[2016-11-13 10:58] LABS: HEMO FLAGS AUTO DIFF
[2016-11-13 11:28] LABS: BICARBONATE 35.1 MEQ/L (21.0-32.0); MAGNESIUM 2.8 MG/DL (1.5-2.5); POTASSIUM 3.7 MEQ/L (3.5-5.1)
[2016-11-13 12:37] LABS: OVALOCYTES 1+ (NORMAL); SCAN/DIFF AUTO DIFF CONFIRMED
[2016-11-13] MEDS ORDERED: BELLADONNA ALKALOIDS/OPIUM 60 MG SUPP RECTAL PRN (13:30)
--- NOTE | 2016-11-13 18:04 | PD.CARD.PN ---
Subjective Subjective Remarks No CP or SOB, feels better Objective Medications Current Medications Medications (Trade) Dose Ordered Sig/Darryl Route Start Time Stop Time Status Last Admin (NS Flush) 2 ml UNSCH PRN IVF 11/08/16 14:30 (Tylenol) 650 mg Q4H PRN PO 11/08/16 18:00 (Zofran Inj) 4 mg Q6H PRN IVP 11/08/16 18:00 (Milk Of Magnesia Liq) 30 ml Q12HR PRN PO 11/08/16 18:00 11/10/16 08:03 (Senokot) 17.2 mg Q12HR PRN PO 11/08/16 21:00 (Narcan Inj) 0.4 mg UNSCH PRN IV 11/08/16 17:45 (Lasix Inj) 20 mg BID IV PUSH 11/08/16 21:00 11/13/16 09:40 (Lopressor) 12.5 mg Q12HR PO 11/08/16 21:00 Hold (Eliquis) 5 mg BID PO 11/08/16 21:00 Hold 11/08/16 21:02 (Ecotrin Ec) 81 mg DAILY PO 11/09/16 09:00 (Lipitor) 20 mg HS PO 11/08/16 21:00 11/12/16 20:17 (Serevent Diskus Inh) 50 mcg BID INH 11/08/16 21:00 11/13/16 09:00 (Colace) 100 mg BID PO 11/08/16 21:00 11/13/16 09:40 Lisinopril 5 mg 5 mg DAILY PO 11/09/16 09:00 Hold (Zosyn 4.5 Gm Premix) 100 ml @ 200 mls/hr Q6H IV 11/09/16 14:00 11/13/16 14:00 Lorazepam 1 mg 1 mg Q4H PRN IV PUSH 11/09/16 08:30 11/09/16 10:36 (Levophed-Dextrose Drip) 250 ml @ 0 mls/hr TITRATE IV 11/09/16 16:15 11/10/16 05:17 Hyoscyamine Sulfate 0.25 mg 0.25 mg Q6H PRN SL 11/09/16 17:00 11/10/16 18:44 Propofol 100 ml @ 0 mls/hr TITRATE IV 11/09/16 17:15 11/12/16 05:55 Potassium Chloride 100 ml @ 50 mls/hr Q2H PRN IV 11/10/16 08:15 11/11/16 10:06 (KCl 20 Meq Premix Inj) 100 ml @ 50 mls/hr Q2H PRN IV 11/10/16 08:15 11/10/16 12:01 Potassium Bicarb/ Potassium Chloride 50 meq 50 meq UNSCH PRN PO 11/10/16 08:15 Potassium Chloride 100 ml @ 25 mls/hr UNSCH PRN IV 11/10/16 08:15 Potassium Chloride 100 ml @ 50 mls/hr Q2H PRN IV 11/10/16 08:15 (Magnesium Sulfate Inj/NS Inj) 100 ml @ 50 mls/hr UNSCH PRN IV 11/10/16 08:15 Magnesium Oxide 800 mg 800 mg UNSCH PRN PO 11/10/16 08:15 (Magnesium Sulfate Inj/NS Inj) 100 ml @ 50 mls/hr UNSCH PRN IV 11/10/16 08:15 Potassium Phosphate 2000 mg 2,000 mg Q4H PRN PO 11/10/16 08:15 (Sodium Phosphate Inj/NS 250 ml Inj) 250 ml @ 42 mls/hr UNSCH PRN IV 11/10/16 08:15 11/10/16 10:27 (K-Phos) 2,000 mg UNSCH PRN PO/TUBE 11/10/16 08:15 (Beneprotein Powder) 1 pack TID G-TUBE 11/10/16 09:00 11/13/16 13:00 (Lactulose Liq) 30 ml BID PO 11/12/16 16:30 11/13/16 09:39 (Aspirin Chew) 81 mg DAILY CHEW 11/13/16 09:00 11/13/16 09:40 (Cordarone) 200 mg Q12HR PO 11/13/16 01:45 11/13/16 09:40 (Lopressor) 25 mg Q8HR PO 11/13/16 14:00 11/13/16 14:00 (B & O Supp) 60 mg Q6H PRN RECTAL 11/13/16 13:30 (Deltasone) 20 mg BID PO 11/13/16 21:00 Vital Signs / I&O Vital Signs Date Time Temp Pulse Resp B/P Pulse Ox O2 Delivery O2 Flow Rate FiO2 11/13/16 16:00 71 11/13/16 14:00 73 11/13/16 12:00 79 11/13/16 10:46 97 Nasal Cannula 3.00 11/13/16 10:46 97 11/13/16 10:00 73 11/13/16 08:00 98 11/13/16 06:00 106 11/13/16 04:00 76 11/13/16 04:00 97.9 76 27 138/70 95 11/13/16 02:00 122 11/13/16 00:43 95 Nasal Cannula 3.00 11/13/16 00:00 97.9 124 27 139/91 93 11/13/16 00:00 124 11/12/16 22:00 80 11/12/16 22:00 95 35 11/12/16 20:59 95 Nasal Cannula 3.00 11/12/16 20:00 72 11/12/16 20:00 98.1 72 32 158/79 99 I/O 11/12/16 11/12/16 11/12/16 11/13/16 11/13/16 11/13/16 07:00 15:00 23:00 07:00 15:00 23:00 Intake Total 576 ml 469 ml 410 ml 468 ml 686 ml Output Total 1050 ml 1700 ml 400 ml 1050 ml 850 ml Balance -474 ml -1231 ml 10 ml -582 ml -164 ml Intake Oral 20 ml 300 ml 480 ml IV Total 297 ml 284 ml 390 ml 168 ml 206 ml Tube Feeding 219 ml 125 ml Other 60 ml 60 ml Output Urine Total 1050 ml 1700 ml 400 ml 1050 ml 850 ml # Bowel Movements 0 0 0 1 Physical Exam GENERAL: In NAD SKIN: Warm and dry. HEAD: Normocephalic. EYES: No scleral icterus. No injection or drainage. NECK: Supple, trachea midline. No JVD or lymphadenopathy. CARDIOVASCULAR: Regular rate and rhythm without murmurs, gallops, or rubs. RESPIRATORY: Breath sounds equal bilaterally. No accessory muscle use. GASTROINTESTINAL: Abdomen soft, non-tender, nondistended. MUSCULOSKELETAL: No cyanosis, or edema. Laboratory Laboratory Tests Test 11/13/16 10:30 White Blood Count 13.0 TH/MM3 Red Blood Count 3.10 MIL/MM3 Hemoglobin 9.7 GM/DL Hematocrit 29.3 % Mean Corpuscular Volume 94.4 FL Mean Corpuscular Hemoglobin 31.4 PG Mean Corpuscular Hemoglobin 33.2 % Concent Red Cell Distribution Width 14.4 % Platelet Count 433 TH/MM3 Mean Platelet Volume 7.0 FL Neutrophils (%) (Auto) 87.6 % Lymphocytes (%) (Auto) 5.8 % Monocytes (%) (Auto) 5.9 % Eosinophils (%) (Auto) 0.2 % Basophils (%) (Auto) 0.5 % Neutrophils # (Auto) 11.4 TH/MM3 Lymphocytes # (Auto) 0.8 TH/MM3 Monocytes # (Auto) 0.8 TH/MM3 Eosinophils # (Auto) 0.0 TH/MM3 Basophils # (Auto) 0.1 TH/MM3 CBC Comment AUTO DIFF Differential Comment AUTO DIFF CONFIRMED Ovalocytes 1+ Sodium Level 143 MEQ/L Potassium Level 3.7 MEQ/L Chloride Level 101 MEQ/L Carbon Dioxide Level 35.1 MEQ/L Anion Gap 7 MEQ/L Blood Urea Nitrogen 39 MG/DL Creatinine 1.14 MG/DL Estimat Glomerular Filtration 61 ML/MIN Rate Random Glucose 137 MG/DL Calcium Level 8.9 MG/DL Magnesium Level 2.8 MG/DL Imaging Last Impressions Chest X-Ray 11/12/16 0000 Signed Impressions: Service Date/Time: Saturday, November 12, 2016 09:11 - CONCLUSION: Stable chest with cardiomegaly and mild interstitial edema. Andrew Haddad MD FACR CT Angiography 11/08/16 1426 Signed Impressions: Service Date/Time: Tuesday, November 08, 2016 16:39 - CONCLUSION: 1. No evidence of pulmonary emboli. 2. Cardiomegaly with moderate pericardial effusion. 3. Elevation of the left hemidiaphragm. 4. Mild consolidation in the left lower lobe. Sean Wright MD Assessment and Plan Problem List: (1) Coronary artery disease (2) S/P CABG x 1 (3) COPD (chronic obstructive pulmonary disease) (4) Pleural effusion (5) PNA (pneumonia) (6) Afib (7) moderate pericardial effusion (8) ventilator dependent resp failure Assessment and Plan Good progress. Continue current program including metoprolol and amio. Started on ASA. Increase activity. Transfer out of ICU. Dolores Zaragoza MD Nov 13, 2016 18:04
[2016-11-13] MEDS: ATORVASTATIN 20 MG TAB PO SCH (20:17)
[2016-11-13] MEDS: predniSONE 20 MG TAB PO SCH (20:17)
[2016-11-14] VITALS (17 sets, daily range): BP systolic 107–147; BP diastolic 58–82; PULSE 68–115; RESP 13–26; TEMP 97.6–98.4; O2SAT 93–100
[2016-11-14] MEDS: PIPERACIL-TAZO 4.5 GM PREMIX 100 ML IV SCH ×4 (01:29→21:29)
[2016-11-14] MEDS: RESP: ALBUTEROL 2.5 MG/IPRATROPIUM 0.5 MG NEB (SCH) NEB ×3 (03:56→17:01)
[2016-11-14 04:41] LABS: AUTOMATED NEUTROPHIL # 11.5 TH/MM3 (1.8-7.7); BASOPHIL % 0.1 % (0.0-2.0); EOSINOPHIL % 0.1 % (0.0-4.0); HEMATOCRIT 29.4 % (39.0-51.0); HEMO FLAGS DIFF FINAL; LYMPH % 6.2 % (9.0-44.0); LYMPHOCYTE # 0.8 TH/MM3 (1.0-4.8); MEAN CORPUSCULAR HEMOGLOBIN 30.5 PG (27.0-34.0); MEAN CORPUSCULAR HGB CONC 32.1 % (32.0-36.0); MONO % 5.7 % (0.0-8.0); NEUT % 87.9 % (16.0-70.0); PLATELET COUNT 319 TH/MM3 (150-450); RED CELL DISTRIBUTION WIDTH 14.4 % (11.6-17.2); WHITE BLOOD COUNT 13.1 TH/MM3 (4.0-11.0)
[2016-11-14 04:45] LABS: ANION GAP 5 MEQ/L (5-15); AST (GOT) 37 U/L (15-37); BICARBONATE 35.1 MEQ/L (21.0-32.0); BLOOD UREA NITROGEN 42 MG/DL (7-18); CHLORIDE 100 MEQ/L (98-107); GLOMERULAR FILTRATION RATE 70 ML/MIN (>89); POTASSIUM 4.5 MEQ/L (3.5-5.1); SODIUM (NA) 140 MEQ/L (136-145)
[2016-11-14 04:48] LABS: ALKALINE PHOSPHATASE 65 U/L (45-117); ALT (GPT) 64 U/L (12-78); TOTAL BILIRUBIN ADULT 0.4 MG/DL (0.2-1.0)
[2016-11-14] MEDS: METOPROLOL TARTRATE 25 MG TAB PO SCH ×3 (05:46→21:30)
--- NOTE | 2016-11-14 06:22 | RADRPT ---
EXAM DATE/TIME: 11/14/2016 05:10 [facility] COMPARISON: No previous studies available for comparison. INDICATIONS : Follow up respiratory status. MEDICAL HISTORY : None. SURGICAL HISTORY : None. ENCOUNTER: Subsequent ACUITY: 4 - 6 days PAIN SCORE: Non-responsive. LOCATION: Bilateral chest FINDINGS: Moderate left and small right pleural effusions are again noted with left greater than right perihila r and basilar consolidation, all not significantly changed. Mild to moderate cardiomegaly again noted . Patient has been extubated. Nasogastric tube out. Left subclavian central venous catheter remains in place, tip in the superior vena cava. CONCLUSION: 1. No significant change left greater than right effusions and consolidation. 2. Endotracheal tube and nasogastric out. Left subclavian central venous catheter remains in place wi th tip in the superior vena cava. Neir Holt MD on November 14, 2016 at 6:19 Board Certified Radiologist. This report was verified electronically.
[2016-11-14] MEDS: BENEPROTEIN POWDER 1 PACK G-TUBE SCH ×3 (08:38→18:00)
[2016-11-14] MEDS: FUROSEMIDE 20 MG/2 ML VIAL IV PUSH SCH ×2 (08:38→21:29)
[2016-11-14] MEDS: AMIODARONE 200 MG TAB PO SCH ×2 (08:38→21:30)
[2016-11-14] MEDS: DOCUSATE SODIUM 100 MG CAP PO SCH ×2 (08:38→21:29)
[2016-11-14] MEDS: SALMETEROL XINAFOATE 50 MCG DISKUS INH SCH ×2 (08:38→21:00)
[2016-11-14] MEDS: predniSONE 20 MG TAB PO SCH (08:38)
[2016-11-14] MEDS: ASPIRIN EC 81 MG TABEC PO SCH (08:38)
[2016-11-14] MEDS: LACTULOSE SYRUP 20 GM/30 ML CUP PO SCH ×2 (08:39→21:28)
--- NOTE | 2016-11-14 16:10 | PD.CARD.PN ---
Subjective Subjective Remarks No CP or SOB Objective Medications Current Medications Medications (Trade) Dose Ordered Sig/Darryl Route Start Time Stop Time Status Last Admin (NS Flush) 2 ml UNSCH PRN IVF 11/08/16 14:30 (Tylenol) 650 mg Q4H PRN PO 11/08/16 18:00 (Zofran Inj) 4 mg Q6H PRN IVP 11/08/16 18:00 (Milk Of Magnesia Liq) 30 ml Q12HR PRN PO 11/08/16 18:00 11/10/16 08:03 (Senokot) 17.2 mg Q12HR PRN PO 11/08/16 21:00 (Narcan Inj) 0.4 mg UNSCH PRN IV 11/08/16 17:45 (Lasix Inj) 20 mg BID IV PUSH 11/08/16 21:00 11/14/16 08:38 (Lopressor) 12.5 mg Q12HR PO 11/08/16 21:00 Hold (Eliquis) 5 mg BID PO 11/08/16 21:00 Hold 11/08/16 21:02 (Ecotrin Ec) 81 mg DAILY PO 11/09/16 09:00 11/14/16 08:38 (Lipitor) 20 mg HS PO 11/08/16 21:00 11/13/16 20:17 (Serevent Diskus Inh) 50 mcg BID INH 11/08/16 21:00 11/14/16 08:38 (Colace) 100 mg BID PO 11/08/16 21:00 11/14/16 08:38 Lisinopril 5 mg 5 mg DAILY PO 11/09/16 09:00 Hold (Zosyn 4.5 Gm Premix) 100 ml @ 200 mls/hr Q6H IV 11/09/16 14:00 11/14/16 14:00 (Ativan Inj) 1 mg Q4H PRN IV PUSH 11/09/16 08:30 11/09/16 10:36 Hyoscyamine Sulfate 0.25 mg 0.25 mg Q6H PRN SL 11/09/16 17:00 11/10/16 18:44 Potassium Chloride 100 ml @ 50 mls/hr Q2H PRN IV 11/10/16 08:15 11/11/16 10:06 (KCl 20 Meq Premix Inj) 100 ml @ 50 mls/hr Q2H PRN IV 11/10/16 08:15 11/10/16 12:01 Potassium Bicarb/ Potassium Chloride 50 meq 50 meq UNSCH PRN PO 11/10/16 08:15 Potassium Chloride 100 ml @ 25 mls/hr UNSCH PRN IV 11/10/16 08:15 Potassium Chloride 100 ml @ 50 mls/hr Q2H PRN IV 11/10/16 08:15 (Magnesium Sulfate Inj/NS Inj) 100 ml @ 50 mls/hr UNSCH PRN IV 11/10/16 08:15 Magnesium Oxide 800 mg 800 mg UNSCH PRN PO 11/10/16 08:15 (Magnesium Sulfate Inj/NS Inj) 100 ml @ 50 mls/hr UNSCH PRN IV 11/10/16 08:15 Potassium Phosphate 2000 mg 2,000 mg Q4H PRN PO 11/10/16 08:15 (Sodium Phosphate Inj/NS 250 ml Inj) 250 ml @ 42 mls/hr UNSCH PRN IV 11/10/16 08:15 11/10/16 10:27 (K-Phos) 2,000 mg UNSCH PRN PO/TUBE 11/10/16 08:15 (Beneprotein Powder) 1 pack TID G-TUBE 11/10/16 09:00 11/14/16 12:32 (Lactulose Liq) 30 ml BID PO 11/12/16 16:30 11/13/16 20:17 (Cordarone) 200 mg Q12HR PO 11/13/16 01:45 11/14/16 08:38 (Lopressor) 25 mg Q8HR PO 11/13/16 14:00 11/14/16 14:00 (B & O Supp) 60 mg Q6H PRN RECTAL 11/13/16 13:30 (Deltasone) 30 mg DAILY PO 11/15/16 09:00 Vital Signs / I&O Vital Signs Date Time Temp Pulse Resp B/P Pulse Ox O2 Delivery O2 Flow Rate FiO2 11/14/16 14:00 112 11/14/16 12:00 103 11/14/16 12:00 98.0 115 24 107/58 96 11/14/16 10:59 96 Nasal Cannula 2.00 11/14/16 10:00 107 11/14/16 08:00 89 11/14/16 08:00 98.2 88 26 147/65 96 11/14/16 06:00 72 11/14/16 04:00 98.4 68 13 125/58 99 11/14/16 04:00 68 11/14/16 02:00 100 11/14/16 00:00 98.4 108 24 109/73 93 11/14/16 00:00 108 11/13/16 22:05 95 Nasal Cannula 3.00 11/13/16 22:00 96 11/13/16 20:00 98.4 92 22 115/65 96 11/13/16 20:00 92 11/13/16 18:00 86 I/O 11/13/16 11/13/16 11/13/16 11/14/16 11/14/16 11/14/16 07:00 15:00 23:00 07:00 15:00 23:00 Intake Total 468 ml 686 ml 592 ml 474 ml 700 ml Output Total 1050 ml 850 ml 875 ml 700 ml 850 ml Balance -582 ml -164 ml -283 ml -226 ml -150 ml Intake Oral 300 ml 480 ml 350 ml 300 ml 500 ml IV Total 168 ml 206 ml 242 ml 174 ml 200 ml Output Urine Total 1050 ml 850 ml 875 ml 700 ml 850 ml # Bowel Movements 0 1 0 0 2 Physical Exam GENERAL: In NAD SKIN: Warm and dry. HEAD: Normocephalic. EYES: No scleral icterus. No injection or drainage. NECK: Supple, trachea midline. No JVD or lymphadenopathy. CARDIOVASCULAR: Regular rate and rhythm without murmurs, gallops, or rubs. RESPIRATORY: Breath sounds equal bilaterally. No accessory muscle use. GASTROINTESTINAL: Abdomen soft, non-tender, nondistended. MUSCULOSKELETAL: No cyanosis, or edema. Laboratory Laboratory Tests Test 11/14/16 03:47 White Blood Count 13.1 TH/MM3 Red Blood Count 3.10 MIL/MM3 Hemoglobin 9.4 GM/DL Hematocrit 29.4 % Mean Corpuscular Volume 95.0 FL Mean Corpuscular Hemoglobin 30.5 PG Mean Corpuscular Hemoglobin 32.1 % Concent Red Cell Distribution Width 14.4 % Platelet Count 319 TH/MM3 Mean Platelet Volume 7.2 FL Neutrophils (%) (Auto) 87.9 % Lymphocytes (%) (Auto) 6.2 % Monocytes (%) (Auto) 5.7 % Eosinophils (%) (Auto) 0.1 % Basophils (%) (Auto) 0.1 % Neutrophils # (Auto) 11.5 TH/MM3 Lymphocytes # (Auto) 0.8 TH/MM3 Monocytes # (Auto) 0.8 TH/MM3 Eosinophils # (Auto) 0.0 TH/MM3 Basophils # (Auto) 0.0 TH/MM3 CBC Comment DIFF FINAL Differential Comment Sodium Level 140 MEQ/L Potassium Level 4.5 MEQ/L Chloride Level 100 MEQ/L Carbon Dioxide Level 35.1 MEQ/L Anion Gap 5 MEQ/L Blood Urea Nitrogen 42 MG/DL Creatinine 1.02 MG/DL Estimat Glomerular Filtration 70 ML/MIN Rate Random Glucose 110 MG/DL Calcium Level 8.7 MG/DL Total Bilirubin 0.4 MG/DL Aspartate Amino Transf 37 U/L (AST/SGOT) Alanine Aminotransferase 64 U/L (ALT/SGPT) Alkaline Phosphatase 65 U/L Total Protein 5.7 GM/DL Albumin 2.4 GM/DL Imaging Last Impressions Chest X-Ray 11/14/16 0600 Signed Impressions: Service Date/Time: Monday, November 14, 2016 05:10 - CONCLUSION: 1. No significant change left greater than right effusions and consolidation. 2. Endotracheal tube and nasogastric out. Left subclavian central venous catheter remains in place with tip in the superior vena cava. Neri Holt MD CT Angiography 11/08/16 1426 Signed Impressions: Service Date/Time: Tuesday, November 08, 2016 16:39 - CONCLUSION: 1. No evidence of pulmonary emboli. 2. Cardiomegaly with moderate pericardial effusion. 3. Elevation of the left hemidiaphragm. 4. Mild consolidation in the left lower lobe. Sean Wright MD Assessment and Plan Problem List: (1) Coronary artery disease (2) S/P CABG x 1 (3) COPD (chronic obstructive pulmonary disease) (4) Pleural effusion (5) PNA (pneumonia) (6) Afib (7) moderate pericardial effusion (8) ventilator dependent resp failure Assessment and Plan No new cardiac issues. Good progress. Continue current program including metoprolol and amiodarone. Started on ASA. Increase activity. Transfer out of ICU. Dr. Westfall will see tomorrow. Dolores Zaragoza MD Nov 14, 2016 16:10
--- NOTE | 2016-11-14 16:28 | HHI.PR ---
Subjective Remarks Patient denies cp sob much improved denies fevers/chills denies diarrhea denies nausea or vomiting Objective Vitals Vital Signs Date Time Temp Pulse Resp B/P Pulse Ox O2 Delivery O2 Flow Rate FiO2 11/14/16 14:00 112 11/14/16 12:00 103 11/14/16 12:00 98.0 115 24 107/58 96 11/14/16 10:59 96 Nasal Cannula 2.00 11/14/16 10:00 107 11/14/16 08:00 89 11/14/16 08:00 98.2 88 26 147/65 96 11/14/16 06:00 72 11/14/16 04:00 98.4 68 13 125/58 99 11/14/16 04:00 68 11/14/16 02:00 100 11/14/16 00:00 98.4 108 24 109/73 93 11/14/16 00:00 108 11/13/16 22:05 95 Nasal Cannula 3.00 11/13/16 22:00 96 11/13/16 20:00 98.4 92 22 115/65 96 11/13/16 20:00 92 11/13/16 18:00 86 I/O 11/13/16 11/13/16 11/13/16 11/14/16 11/14/16 11/14/16 07:00 15:00 23:00 07:00 15:00 23:00 Intake Total 468 ml 686 ml 592 ml 474 ml 700 ml Output Total 1050 ml 850 ml 875 ml 700 ml 850 ml Balance -582 ml -164 ml -283 ml -226 ml -150 ml Intake Oral 300 ml 480 ml 350 ml 300 ml 500 ml IV Total 168 ml 206 ml 242 ml 174 ml 200 ml Output Urine Total 1050 ml 850 ml 875 ml 700 ml 850 ml # Bowel Movements 0 1 0 0 2 Result Diagram: 11/14/1634611/14/16346 Imaging Last Impressions Chest X-Ray 11/14/16 06 Signed Impressions: Service Date/Time: Monday, November 14, 2016 05:10 - CONCLUSION: 1. No significant change left greater than right effusions and consolidation. 2. Endotracheal tube and nasogastric out. Left subclavian central venous catheter remains in place with tip in the superior vena cava. Neri Holt MD Chest Ultrasound 11/14/16 0000 Signed Impressions: Service Date/Time: Monday, November 14, 2016 15:59 - CONCLUSION: Small pleural effusion and therefore a marker was not placed. Sebastian Flores MD CT Angiography 11/08/16 1426 Signed Impressions: Service Date/Time: Tuesday, November 08, 2016 16:39 - CONCLUSION: 1. No evidence of pulmonary emboli. 2. Cardiomegaly with moderate pericardial effusion. 3. Elevation of the left hemidiaphragm. 4. Mild consolidation in the left lower lobe. Sean Wright MD Objective Remarks GENERAL: This is a well-nourished, well-developed patient off all sedation SKIN: No rashes, ecchymoses or lesions. Cool and dry. HEAD: Atraumatic. Normocephalic. EYES: Pupils equal round and reactive. No injection or drainage. ENT: Airway patent NECK: Trachea midline. No JVD or lymphadenopathy. Supple, nontender, no meningeal signs. CARDIOVASCULAR: Atrial fibrillation with RVR. +2 edema bilateral lower extremities up to the knees. Heart sounds are distant RESPIRATORY: Diminished breath sounds with few basilar crackles. No wheezes, rales, or rhonchi. GASTROINTESTINAL: Abdomen soft, non-tender, nondistended. No hepato-splenomegaly , or palpable masses. No guarding. MUSCULOSKELETAL: Lower extremities with 2+ edema. : Hematuria NEUROLOGICAL: Alert awake oriented no focal deficits Procedures Left subclavian central line placement Medications and IVs Current Medications Medications (Trade) Dose Ordered Sig/Darryl Route Start Time Stop Time Status Last Admin (NS Flush) 2 ml UNSCH PRN IVF 11/08/16 14:30 (Tylenol) 650 mg Q4H PRN PO 11/08/16 18:00 (Zofran Inj) 4 mg Q6H PRN IVP 11/08/16 18:00 (Milk Of Magnesia Liq) 30 ml Q12HR PRN PO 11/08/16 18:00 11/10/16 08:03 (Senokot) 17.2 mg Q12HR PRN PO 11/08/16 21:00 (Narcan Inj) 0.4 mg UNSCH PRN IV 11/08/16 17:45 (Lasix Inj) 20 mg BID IV PUSH 11/08/16 21:00 11/14/16 21:29 (Lopressor) 12.5 mg Q12HR PO 11/08/16 21:00 Hold (Eliquis) 5 mg BID PO 11/08/16 21:00 Hold 11/08/16 21:02 (Ecotrin Ec) 81 mg DAILY PO 11/09/16 09:00 11/14/16 08:38 (Lipitor) 20 mg HS PO 11/08/16 21:00 11/14/16 21:29 (Serevent Diskus Inh) 50 mcg BID INH 11/08/16 21:00 11/14/16 21:00 (Colace) 100 mg BID PO 11/08/16 21:00 11/14/16 21:29 Lisinopril 5 mg 5 mg DAILY PO 11/09/16 09:00 Hold (Zosyn 4.5 Gm Premix) 100 ml @ 200 mls/hr Q6H IV 11/09/16 14:00 11/14/16 21:29 (Ativan Inj) 1 mg Q4H PRN IV PUSH 11/09/16 08:30 11/09/16 10:36 Hyoscyamine Sulfate 0.25 mg 0.25 mg Q6H PRN SL 11/09/16 17:00 11/10/16 18:44 Potassium Chloride 100 ml @ 50 mls/hr Q2H PRN IV 11/10/16 08:15 11/11/16 10:06 (KCl 20 Meq Premix Inj) 100 ml @ 50 mls/hr Q2H PRN IV 11/10/16 08:15 11/10/16 12:01 Potassium Bicarb/ Potassium Chloride 50 meq 50 meq UNSCH PRN PO 11/10/16 08:15 Potassium Chloride 100 ml @ 25 mls/hr UNSCH PRN IV 11/10/16 08:15 Potassium Chloride 100 ml @ 50 mls/hr Q2H PRN IV 11/10/16 08:15 (Magnesium Sulfate Inj/NS Inj) 100 ml @ 50 mls/hr UNSCH PRN IV 11/10/16 08:15 Magnesium Oxide 800 mg 800 mg UNSCH PRN PO 11/10/16 08:15 (Magnesium Sulfate Inj/NS Inj) 100 ml @ 50 mls/hr UNSCH PRN IV 11/10/16 08:15 Potassium Phosphate 2000 mg 2,000 mg Q4H PRN PO 11/10/16 08:15 (Sodium Phosphate Inj/NS 250 ml Inj) 250 ml @ 42 mls/hr UNSCH PRN IV 11/10/16 08:15 11/10/16 10:27 (K-Phos) 2,000 mg UNSCH PRN PO/TUBE 11/10/16 08:15 (Beneprotein Powder) 1 pack TID G-TUBE 11/10/16 09:00 11/14/16 12:32 (Lactulose Liq) 30 ml BID PO 11/12/16 16:30 11/14/16 21:28 (Cordarone) 200 mg Q12HR PO 11/13/16 01:45 11/14/16 21:30 (Lopressor) 25 mg Q8HR PO 11/13/16 14:00 11/14/16 21:30 (B & O Supp) 60 mg Q6H PRN RECTAL 11/13/16 13:30 11/14/16 15:30 (Deltasone) 30 mg DAILY PO 11/15/16 09:00 Urinary Catheter: Yes Assessment to: Continue Broderick insert reason: Measure Accurate Output Vascular Central Line Catheter: Yes Assessment to: Remove Side: Left Location: Subclavian A/P Problem List: (1) Acute respiratory failure ICD Code: J96.00 Status: Acute (2) Hospital acquired PNA ICD Code: J18.9 Status: Acute (3) CHF exacerbation ICD Code: I50.9 Status: Acute (4) COPD (chronic obstructive pulmonary disease) ICD Code: J44.9 Status: Chronic (5) moderate pericardial effusion Status: Acute (6) Hematuria ICD Code: R31.9 Status: Resolved (7) Hypertension ICD Code: I10 Status: Chronic (8) Afib ICD Code: I48.91 Status: Chronic Assessment and Plan 86-year-old male with past medical history significant for COPD, coronary artery disease, s/p minimally invasive CABG x1 vessel on 10/19/16, discharged on , chronically on 1 L O2 at home who presented with worsening SOB. Patient was admitted to the hospital service on 11/08/16 with diagnosis of acute CHF and COPD exacerbation, probable healthcare associated pneumonia. A CT angiogram was negative for pulmonary embolism, but moderate pericardial effusion. Patient was placed on broad-spectrum antibiotics Zosyn and azithromycin. Also placed on steroids and breathing treatments. Patient was started on IV Lasix for CHF exacerbation. Chest x-ray showed chronically elevated left hemidiaphragm with left basilar atelectasis, questionable left effusion. Initial WBC 13.9. Apparently overnight his respiratory status worsened and he was placed on BiPAP. ABG after 1 hour BiPAP showed pH of 7.2 PCO2 102 and a PO2 of 120. At that time Dr. Beckett talked with the patient and he was made a DNR. Patient's mental status continued to deteriorate, requiring sedation with Ativan and restraints. Dr. Silva from pulmonology was consulted for respiratory failure. He knows patient from outpatient, and felt that patient did not want to be a DNR, unless care was deemed futile. According to Dr. Silva patient " did not want to live on machines" but temporary intubation was okay. After discussion with Family DNR was rescinded. Critical care medicine was consulted for acute hypoxemic and hypercarbic respiratory failure with encephalopathy. I evaluated the patient immediately. Patient remains on BiPAP but unresponsive. I discussed with the patient's family, patient is unable to protect his airway clearly. I proceeded with endotracheal intubation and placed the patient on mechanical ventilation. A STAT Echo did not show pericardial tamponade Acute metabolic encephalopathy CO2 narcosis -Intubated for airway protection, now extubated -Encephalopathy due to CO2 narcosis. RESP: Acute hypercarbic and hypoxemic respiratory failure Probable HCAP Acute COPD exacerbation -Extubated 11/12, now on NC -DuoNeb every 6 hours scheduled and when necessary -Continue IV Solu-Medrol. EzPAP, Acapella -Up to chair CV: CHF exacerbation Pericardial effusion Shock, most likely septic Status post minimally invasive CABG 10/19/16 Chronic atrial fibrillation -Continue IV lasix 20 mg IV BID. -Stat 2D echo -no evidence of tamponade per Dr. Choi -CTS Dr. Dominguez, Cardiology Dr. Westfall -Resumed metoprolol and amiodarone -Continue Hold Eliquis due to persistent hematuria -Started on ASA GI: -Advance to heart hearty diet as tolerated. IV Protonix : Hematuria History of prostate cancer -Continue CBI for now. Urology Dr. Brager -Monitor renal function closely. Broderick catheter. -IV Lasix 20 mg IV BID -Hematuria resolved 11/14 ID: Sepsis Probable healthcare associated pneumonia -F/U on blood sputum and urine cultures -Continue azithromycin and Zosyn, complete 10 days HEME: -Monitor CBC, CMP. coags -Holding Xarelto and aspirin given significant hematuria, with clots ENDO: -Electrolyte replacement protocol PROPH: -Bilateral lower extremity SCDs. Protonix 40 mg IV daily. No chemical DVT prophylaxis due to hematuria LINES: -Utilize peripheral IVs, remove central line Discharge Planning ok to transfer out of ICU. Tye Avelar MD Nov 14, 2016 16:28
--- NOTE | 2016-11-14 16:50 | RADRPT ---
EXAM DATE/TIME: 11/14/2016 15:59 [facility] COMPARISON: No previous studies available for comparison. INDICATIONS : Left pleural effusion. MEDICAL HISTORY : Hypercholesterolemia. Carcinoma, prostate. Chest pain. Afib. COPD. HTN. Dyspnea. SURGICAL HISTORY : CABG. Left cataract. Radiation therapy. Right total hip with revision. ENCOUNTER: Initial ACUITY: 1 month PAIN SCORE: 0/10 LOCATION: Left chest MEASUREMENTS: SKIN TO PARIETAL PLEURA: Inadequate fluid SKIN TO MAX SAFE DEPTH: Inadequate fluid ESTIMATED FLUID VOLUME: 271 cc FLUID COMPOSITION: simple FINDINGS: No marking was performed. CONCLUSION: Small pleural effusion and therefore a marker was not placed. Sebastian Flores MD on November 14, 2016 at 16:47 Board Certified Radiologist. This report was verified electronically.
[2016-11-14] MEDS: ATORVASTATIN 20 MG TAB PO SCH (21:29)
[2016-11-15] VITALS (26 sets, daily range): BP systolic 116–137; BP diastolic 65–76; PULSE 66–88; RESP 16–20; TEMP 96.3–98.4; O2SAT 91–98
[2016-11-15] MEDS: PIPERACIL-TAZO 4.5 GM PREMIX 100 ML IV SCH ×2 (02:00→08:42)
[2016-11-15] MEDS: RESP: ALBUTEROL 2.5 MG/IPRATROPIUM 0.5 MG NEB (SCH) NEB ×2 (03:39→09:46)
--- NOTE | 2016-11-15 05:33 | RADRPT ---
EXAM DATE/TIME: 11/15/2016 04:54 [facility] COMPARISON: CHEST SINGLE AP, November 14, 2016, 5:10. INDICATIONS : Shortness of breath, possible pulmonary disease. MEDICAL HISTORY : None. SURGICAL HISTORY : None. ENCOUNTER: Subsequent ACUITY: 1 week PAIN SCORE: 0/10 LOCATION: Bilateral chest FINDINGS: The cardiac silhouette is enlarged in transverse diameter. There is prominence of the central pulmona ry vasculature with indistinct vascular margins compatible with vascular congestion but no evidence o f overt failure. There is elevation of the left hemidiaphragm. A small left sided effusion is present . CONCLUSION: 1. Cardiomegaly and findings of vascular congestion without overt failure. The findings are improved when compared with the prior exam. Jose Ramon Pond MD on November 15, 2016 at 5:31 Board Certified Radiologist. This report was verified electronically.
[2016-11-15] MEDS: METOPROLOL TARTRATE 25 MG TAB PO SCH ×3 (06:50→20:47)
[2016-11-15] MEDS: AMIODARONE 200 MG TAB PO SCH ×2 (08:42→20:44)
[2016-11-15] MEDS: ASPIRIN EC 81 MG TABEC PO SCH (08:42)
[2016-11-15] MEDS: FUROSEMIDE 20 MG/2 ML VIAL IV PUSH SCH (08:42)
[2016-11-15] MEDS: LACTULOSE SYRUP 20 GM/30 ML CUP PO SCH ×2 (08:42→20:44)
[2016-11-15] MEDS: DOCUSATE SODIUM 100 MG CAP PO SCH ×2 (08:42→20:43)
[2016-11-15] MEDS: SALMETEROL XINAFOATE 50 MCG DISKUS INH SCH ×2 (08:43→20:47)
[2016-11-15] MEDS: BENEPROTEIN POWDER 1 PACK G-TUBE SCH ×3 (08:43→17:17)
[2016-11-15] MEDS ORDERED: predniSONE 10 MG TAB PO SCH (09:00)
--- NOTE | 2016-11-15 11:24 | HHI.PR ---
Subjective Remarks Patient reports he is feeling better today. Getting close to his baseline in terms of his breathing. Inquiring about when he can go home. Discussed with his at bedside. Objective Vitals Vital Signs Date Time Temp Pulse Resp B/P Pulse Ox O2 Delivery O2 Flow Rate FiO2 11/15/16 09:47 94 Nasal Cannula 3.00 11/15/16 08:00 98.1 68 16 137/76 97 11/15/16 08:00 71 11/15/16 06:00 76 11/15/16 05:00 74 11/15/16 04:00 71 11/15/16 04:00 96.3 71 18 118/66 94 11/15/16 03:48 91 Nasal Cannula 1.50 11/15/16 03:00 70 11/15/16 02:00 68 11/15/16 01:00 68 11/15/16 00:00 97.9 79 20 124/65 94 11/15/16 00:00 80 11/14/16 23:00 78 11/14/16 22:00 82 11/14/16 21:00 76 11/14/16 20:00 78 11/14/16 20:00 97.7 80 22 139/69 96 11/14/16 19:00 82 11/14/16 18:00 73 11/14/16 17:47 98.0 75 18 135/82 96 11/14/16 16:00 97.6 68 25 121/66 100 11/14/16 16:00 68 11/14/16 14:00 112 11/14/16 12:00 103 11/14/16 12:00 98.0 115 24 107/58 96 11/14/16 10:59 96 Nasal Cannula 2.00 I/O 11/14/16 11/14/16 11/14/16 11/15/16 11/15/16 11/15/16 07:00 15:00 23:00 07:00 15:00 23:00 Intake Total 474 ml 700 ml 500 ml Output Total 700 ml 850 ml 1100 ml Balance -226 ml -150 ml -600 ml Intake Oral 300 ml 500 ml 240 ml IV Total 174 ml 200 ml 260 ml Output Urine Total 700 ml 850 ml 1100 ml # Bowel Movements 0 2 1 Result Diagram: 11/14/16 0347 11/14/16 0347 Objective Remarks GENERAL: This is a well-nourished, well-developed patient, in no apparent distress. Does have mild shortness of breath at baseline. CARDIOVASCULAR: Normal rate and regular rhythm without murmurs, gallops, or rubs. RESPIRATORY: Good respiratory efforts. Diminished breath sounds at the left base, otherwise clear to auscultation. GASTROINTESTINAL: Abdomen soft, non-tender, non-distended. Normal active bowel sounds MUSCULOSKELETAL: Extremities without cyanosis, or edema. NEURO: Alert & Oriented x4 to person, place, time, situation. Moves all ext x4 PSYCH: Appropriate mood and affect. Procedures Left subclavian central line placement Side: Left Location: Subclavian A/P Problem List: (1) Acute respiratory failure ICD Code: J96.00 Status: Acute (2) Hospital acquired PNA ICD Code: J18.9 Status: Acute (3) CHF exacerbation ICD Code: I50.9 Status: Acute (4) COPD (chronic obstructive pulmonary disease) ICD Code: J44.9 Status: Chronic (5) moderate pericardial effusion Status: Acute (6) Hematuria ICD Code: R31.9 Status: Resolved (7) Hypertension ICD Code: I10 Status: Chronic (8) Afib ICD Code: I48.91 Status: Chronic Assessment and Plan 86 y/o male with a history of afib, htn, copd, PE, CABGx1 3 weeks ago, prostate cancer admitted for respiratory failure. Patient is status post ICU course and intubation. He has since been extubated and transferred to the [facility]. He is clinically improving. Acute hypoxemic, hypercapnic respiratory failure secondary to probable diastolic CHF, possible pneumonia, Recent CABG. patient is improving. Extruded on 11/12/16. 2D echo -no evidence of tamponade per Dr. Choi -CTS Dr. Dominguez, Cardiology Dr. Westfall-Appreciate pulmonology Dr. Silva following. - Supplemental oxygen, breathing treatments as needed -Continue oral prednisone per pulmonology -Transition to oral antibiotics with Levaquin. - Repeat chest x-ray this morning improved. - Encourage incentive spirometry. Ambulation. Chronic atrial fibrillation -Resumed metoprolol and amiodarone -Resume aspirin if ok with neurology -Resumed metoprolol and amiodarone -Consider resuming Eliquis in a.m. if urine remains clear. -Started on ASA CHF exacerbation, probably diastolic CHF. +2 pitting edema in bilateral lower extremities, s/p cabg. BNP 421, 583 CT chest shows small left pleural effusion on presentation. -CT surgery, Dr. Dominguez following -2-D echo shows preserved LVEF. no evidence of tamponade. -Transition to oral Lasix 20 mg twice a day Probable Hospital acquired PNA with leukocytosis and/or heart failure with worsening pleural effusion Chest x-ray images and report reviewed, there is elevation of the left hemidiaphragm with left basilar atelectasis. Possible associated left-sided effusion. Marked cardiomegaly. -Status post Zosyn and Zithromax IV. Transition to oral Levaquin for an additional 5-7 days -Pneumococcal and legionella urinary antigen negative -Albuterol nebs prn -Blood cultures negative Hematuria: Probably related to urethral trauma. History of prostate cancer -Hematuria resolved. Urology Dr. Barger -Per urology, plan to keep Broderick in for 1 week from 11/11. HTN, Chronic. -On metoprolol and lisinopril. Continue to monitor PROPH: -Bilateral lower extremity SCDs. Protonix 40 mg IV daily. No chemical DVT prophylaxis due to hematuria Discharge Planning Patient is improving. Possible discharge in the next 1-2 days with home health if he continues to improve and no objections from consultants. Km Bazzi MD November 15, 2016 11:24
--- NOTE | 2016-11-15 14:12 | PD.CAR.PN ---
CVT Progress Note Subjective/Hospital Course: 86/ male recent hx of chest pain eval by Dr Westfall and underwent nuclear stress test which was abnormal and underwent elective cardiac cath / revealing 95% LAD stenosis and preserved LV function PMH: HTN, GERD, COPD prostate CA surgery: 10/19 Minimally Invasive Coronary Artery Bypass Grafting x 1 (MIDCAB) with MONTERO to LAD / discharge 10/23/16 pt presented to ED today with significant dyspnea + lower ext edema CXR showed elevated left hemidiaphragm, prior hx , atelectasis / elevated WBC, concern for possible PNA US during his admission possible left effusion/ not enough fluid to drain at that time agree with dideioning, may need 2decho to re-eval EF agree with ABX 11/09/16 pt had worsening Resp symptoms , not improved with Bipap now intubated, CT chest noted Left lower PNA , moderate pericardial effusion 2d echo pending Dr Dominguez aware CCM following 11/10 remains on vent PRVC mode / 40% FI02 sedated on propofol lung sounds improved, ECHO noted EF 60% small to mod pericardial effusion, no hemodynamic compromise no surgical intervention at this time per Dr Dominguez hopefully wean and extubate soon 11/12 pt on CPAP , tolerating well hopefully extubate today awake alert and following commands 11/15 on nasal cannula, ambulating in room feels better, wants to go home hematuria resolving , has indwelling ureña cath/ to go home with leg bag stable from [facility] Objective: GENERAL: SKIN: Warm and dry.incision intact left chest area HEAD: Normocephalic. EYES: No scleral icterus. No injection or drainage. NECK: Supple, trachea midline. No JVD or lymphadenopathy. CARDIOVASCULAR: few basilar crackles Regular rate and rhythm without murmurs, gallops, or rubs. RESPIRATORY: Breath sounds equal bilaterally. No accessory muscle use. GASTROINTESTINAL: Abdomen soft, non-tender, nondistended. MUSCULOSKELETAL: No cyanosis, or edema. BACK: Nontender without obvious deformity. No CVA tenderness. Vital Signs Date Time Temp Pulse Resp B/P Pulse Ox O2 Delivery O2 Flow Rate FiO2 11/15/16 12:00 98.2 74 18 121/72 96 11/15/16 12:00 72 11/15/16 11:00 72 11/15/16 10:00 68 11/15/16 09:47 94 Nasal Cannula 3.00 11/15/16 09:00 68 11/15/16 08:00 98.1 68 16 137/76 97 11/15/16 08:00 71 11/15/16 07:00 68 11/15/16 06:00 76 11/15/16 05:00 74 11/15/16 04:00 71 11/15/16 04:00 96.3 71 18 118/66 94 11/15/16 03:48 91 Nasal Cannula 1.50 11/15/16 03:00 70 11/15/16 02:00 68 11/15/16 01:00 68 11/15/16 00:00 97.9 79 20 124/65 94 11/15/16 00:00 80 11/14/16 23:00 78 11/14/16 22:00 82 11/14/16 21:00 76 11/14/16 20:00 78 11/14/16 20:00 97.7 80 22 139/69 96 11/14/16 19:00 82 11/14/16 18:00 73 11/14/16 17:47 98.0 75 18 135/82 96 11/14/16 16:00 97.6 68 25 121/66 100 11/14/16 16:00 68 Result Diagram: 11/14/16 0347 11/14/16 0347 (1) Coronary artery disease (2) S/P CABG x 1 Plan: Doing better no chest pain or evidence of infarction/ resume low dose Aspirin resume eliquis will see prn / has outpt f/u with Dr Dominguez (3) COPD (chronic obstructive pulmonary disease) Plan: on nebs (4) Pleural effusion (5) PNA (pneumonia) Plan: on antibiotic s (6) Afib Plan: On eliquis at home, hold for now, resume when ok with Dr Dominguez (7) moderate pericardial effusion (8) ventilator dependent resp failure Plan: On cpap being weaned off vent Ana García November 15, 2016 14:12
[2016-11-15] MEDS: FUROSEMIDE 20 MG TAB PO SCH (17:17)
--- NOTE | 2016-11-15 17:32 | PD.CARD.PN ---
Subjective Subjective Remarks Overall stable off vent wants to consider going home. Objective Vital Signs / I&O Vital Signs Date Time Temp Pulse Resp B/P Pulse Ox O2 Delivery O2 Flow Rate FiO2 11/15/16 16:00 69 11/15/16 16:00 98.4 73 16 127/65 98 11/15/16 15:00 68 11/15/16 14:00 68 11/15/16 13:00 70 11/15/16 12:00 98.2 74 18 121/72 96 11/15/16 12:00 72 11/15/16 11:00 72 11/15/16 10:00 68 11/15/16 09:47 94 Nasal Cannula 3.00 11/15/16 09:00 68 11/15/16 08:00 98.1 68 16 137/76 97 11/15/16 08:00 71 11/15/16 07:00 68 11/15/16 06:00 76 11/15/16 05:00 74 11/15/16 04:00 71 11/15/16 04:00 96.3 71 18 118/66 94 11/15/16 03:48 91 Nasal Cannula 1.50 11/15/16 03:00 70 11/15/16 02:00 68 11/15/16 01:00 68 11/15/16 00:00 97.9 79 20 124/65 94 11/15/16 00:00 80 11/14/16 23:00 78 11/14/16 22:00 82 11/14/16 21:00 76 11/14/16 20:00 78 11/14/16 20:00 97.7 80 22 139/69 96 11/14/16 19:00 82 11/14/16 18:00 73 11/14/16 17:47 98.0 75 18 135/82 96 I/O 11/14/16 11/14/16 11/14/16 11/15/16 11/15/16 11/15/16 07:00 15:00 23:00 07:00 15:00 23:00 Intake Total 474 ml 700 ml 500 ml Output Total 700 ml 850 ml 1100 ml Balance -226 ml -150 ml -600 ml Intake Oral 300 ml 500 ml 240 ml IV Total 174 ml 200 ml 260 ml Output Urine Total 700 ml 850 ml 1100 ml # Bowel Movements 0 2 1 Physical Exam GENERAL: intubated and ventilated SKIN: Warm and dry. NECK: JVD normal - less than or equal to 5 cm H20. CARDIOVASCULAR: Regular rate and rhythm without murmurs, gallops or rubs. RESPIRATORY: Normal breath sounds - equal bilaterally. No accessory muscle use. No wheezes, rales or rubs. PERIPHERY: No cyanosis or edema. SUPERVISOR PHOTOCOMPOSITION: Stable unable to examine fully as intubated and unresponsive Laboratory Laboratory Tests Test 11/13/16 11/14/16 10:30 03:47 White Blood Count 13.0 TH/MM3 13.1 TH/MM3 (4.0-11.0) (4.0-11.0) Red Blood Count 3.10 MIL/MM3 3.10 MIL/MM3 (4.50-5.90) (4.50-5.90) Hemoglobin 9.7 GM/DL 9.4 GM/DL (13.0-17.0) (13.0-17.0) Hematocrit 29.3 % 29.4 % (39.0-51.0) (39.0-51.0) Neutrophils (%) (Auto) 87.6 % 87.9 % (16.0-70.0) (16.0-70.0) Lymphocytes (%) (Auto) 5.8 % 6.2 % (9.0-44.0) (9.0-44.0) Neutrophils # (Auto) 11.4 TH/MM3 11.5 TH/MM3 (1.8-7.7) (1.8-7.7) Lymphocytes # (Auto) 0.8 TH/MM3 0.8 TH/MM3 (1.0-4.8) (1.0-4.8) Ovalocytes 1+ (NORMAL) Carbon Dioxide Level 35.1 MEQ/L 35.1 MEQ/L (21.0-32.0) (21.0-32.0) Blood Urea Nitrogen 39 MG/DL (7-18) 42 MG/DL (7-18) Estimat Glomerular Filtration 61 ML/MIN (>89) 70 ML/MIN (>89) Rate Random Glucose 137 MG/DL 110 MG/DL (74-106) (74-106) Magnesium Level 2.8 MG/DL (1.5-2.5) Total Protein 5.7 GM/DL (6.4-8.2) Albumin 2.4 GM/DL (3.4-5.0) Imaging Last 48 hours Impressions Chest X-Ray 11/15/16 0600 Signed Impressions: Service Date/Time: Tuesday, November 15, 2016 04:54 - CONCLUSION: 1. Cardiomegaly and findings of vascular congestion without overt failure. The findings are improved when compared with the prior exam. Jose Ramon Pond MD Chest X-Ray 11/14/16 0600 Signed Impressions: Service Date/Time: Monday, November 14, 2016 05:10 - CONCLUSION: 1. No significant change left greater than right effusions and consolidation. 2. Endotracheal tube and nasogastric out. Left subclavian central venous catheter remains in place with tip in the superior vena cava. Neri Holt MD Chest Ultrasound 11/14/16 0000 Signed Impressions: Service Date/Time: Monday, November 14, 2016 15:59 - CONCLUSION: Small pleural effusion and therefore a marker was not placed. Sebastian Flores MD Assessment and Plan Problem List: (1) Coronary artery disease (2) S/P CABG x 1 (3) COPD (chronic obstructive pulmonary disease) (4) Pleural effusion (5) PNA (pneumonia) (6) Afib (7) moderate pericardial effusion (8) ventilator dependent resp failure Assessment and Plan Continues to improve wants to go home. Stable cv. Pam Westfall MD November 15, 2016 17:32
[2016-11-15] MEDS: ATORVASTATIN 20 MG TAB PO SCH (20:44)
[2016-11-16] VITALS (14 sets, daily range): BP systolic 123–129; BP diastolic 71–90; PULSE 68–112; RESP 18–24; TEMP 97.4–98.2; O2SAT 92–94
[2016-11-16] MEDS: METOPROLOL TARTRATE 25 MG TAB PO SCH (05:45)
[2016-11-16 06:49] LABS: HEMATOCRIT 29.4 % (39.0-51.0); MEAN CORPUSCULAR HEMOGLOBIN 30.9 PG (27.0-34.0); MEAN CORPUSCULAR HGB CONC 33.3 % (32.0-36.0); PLATELET COUNT 319 TH/MM3 (150-450); RED BLOOD COUNT 3.16 MIL/MM3 (4.50-5.90); RED CELL DISTRIBUTION WIDTH 14.2 % (11.6-17.2); REVIEW FLAG FINAL; WHITE BLOOD COUNT 13.5 TH/MM3 (4.0-11.0)
[2016-11-16 07:24] LABS: POTASSIUM 3.4 MEQ/L (3.5-5.1)
[2016-11-16] MEDS: LISINOPRIL 5 MG TAB PO SCH (09:00)
[2016-11-16] MEDS ORDERED: predniSONE 20 MG TAB PO SCH (09:00)
[2016-11-16] MEDS: BENEPROTEIN POWDER 1 PACK G-TUBE SCH (09:00)
[2016-11-16] MEDS ORDERED: LEVOFLOXACIN 750 MG TAB PO SCH (09:00)
[2016-11-16] MEDS: LACTULOSE SYRUP 20 GM/30 ML CUP PO SCH (09:00)
[2016-11-16] MEDS: DOCUSATE SODIUM 100 MG CAP PO SCH (09:00)
[2016-11-16] MEDS: SALMETEROL XINAFOATE 50 MCG DISKUS INH SCH (09:00)
[2016-11-16] MEDS: HYOSCYAMINE SOLN 0.125 MG/ML 15 ML BTL SL PRN (09:22)
[2016-11-16] MEDS: FUROSEMIDE 20 MG TAB PO SCH (09:23)
[2016-11-16] MEDS: ASPIRIN EC 81 MG TABEC PO SCH (09:23)
[2016-11-16] MEDS: AMIODARONE 200 MG TAB PO SCH (09:24)
[2016-11-16] MEDS ORDERED: PRED10 PO (10:50)
[2016-11-16] MEDS ORDERED: FURO20TA PO (10:50)
[2016-11-16] MEDS ORDERED: LEVA750T PO (10:50)
[2016-11-16] MEDS ORDERED: AMIO200T PO (10:50)
[2016-11-16] MEDS ORDERED: LISI-519 PO (10:50)
--- NOTE | 2016-11-16 10:56 | HHI.FF ---
Face to Face Verification Diagnosis: (1) Acute respiratory failure (2) CHF exacerbation (3) Hospital acquired PNA (4) COPD (chronic obstructive pulmonary disease) (5) Hypertension (6) Afib (7) Pleural effusion (8) s/p CABG x 1 Physical Therapy Order: Improve ambulation, Strength and gait training Home Health Nursing Order: Medical education Signs/symptoms of disease process CHF education Medication education-adverse effect Nursing assessment with vital signs I have seen patient Filipe Key on 11/16/16. My clinical findings support the need for the requested home health care services because: Patient has SOB Limited ability to care for self I certify that my clinical findings support that this patient is homebound because: Hx COPD- exertion dyspnea/weakness Poor cardiac reserve Km Bazzi MD November 16, 2016 10:56
--- NOTE | 2016-11-16 11:06 | HHI.DS ---
Discharge Summary Admission Date Nov 08, 2016 at 17:37 Discharge Date: November 16, 2016 Admitting Diagnosis (1) Acute respiratory failure ICD Code: J96.00 Status: Acute (2) Hospital acquired PNA ICD Code: J18.9 Status: Acute (3) CHF exacerbation ICD Code: I50.9 Status: Acute (4) COPD (chronic obstructive pulmonary disease) ICD Code: J44.9 Status: Chronic (5) Afib ICD Code: I48.91 Status: Chronic (6) Hypertension ICD Code: I10 (1) Acute respiratory failure ICD Code: J96.00 Diagnosis: Principal (2) Hospital acquired PNA ICD Code: J18.9 Diagnosis: Principal (3) CHF exacerbation ICD Code: I50.9 Diagnosis: Principal (4) COPD (chronic obstructive pulmonary disease) ICD Code: J44.9 Diagnosis: Principal (5) moderate pericardial effusion Diagnosis: Principal (6) Hematuria ICD Code: R31.9 Diagnosis: Principal (7) Hypertension ICD Code: I10 Diagnosis: Secondary (8) Afib ICD Code: I48.91 Diagnosis: Secondary Procedures Left subclavian central line placement Brief History - From Admission 86 y/o male with a history of afib, htn, copd, PE, minimally invasive CABGx1 3 weeks ago, prostate cancer presented to the ED with complaints of shortness of breath and feeling weak. He states overnight he had low blood pressure, and he was having trouble breathing and the oxygen was not helping. Patient was on 1L NC at home. Patient denies any chest pain. Over the last few days he has been gaining weight and his legs are getting more and more swollen. He currently feels that he is having a moderate amount of shortness of breath. He does not think he is urinating as much as he needs to. Denies any pain with breathing. He states at home he was able to walk at home, and the [facility] nurse has been following every other day. Currently he admits that he is somewhat short of breath. CBC/BMP: 11/16/16 0525 11/16/16 0525 Significant Findings Laboratory Tests Test 11/14/16 11/16/16 03:47 05:25 White Blood Count 13.1 TH/MM3 13.5 TH/MM3 (4.0-11.0) (4.0-11.0) Red Blood Count 3.10 MIL/MM3 3.16 MIL/MM3 (4.50-5.90) (4.50-5.90) Hemoglobin 9.4 GM/DL 9.8 GM/DL (13.0-17.0) (13.0-17.0) Hematocrit 29.4 % 29.4 % (39.0-51.0) (39.0-51.0) Neutrophils (%) (Auto) 87.9 % (16.0-70.0) Lymphocytes (%) (Auto) 6.2 % (9.0-44.0) Neutrophils # (Auto) 11.5 TH/MM3 (1.8-7.7) Lymphocytes # (Auto) 0.8 TH/MM3 (1.0-4.8) Carbon Dioxide Level 35.1 MEQ/L 37.0 MEQ/L (21.0-32.0) (21.0-32.0) Blood Urea Nitrogen 42 MG/DL (7-18) 41 MG/DL (7-18) Estimat Glomerular Filtration 70 ML/MIN (>89) 81 ML/MIN (>89) Rate Random Glucose 110 MG/DL (74-106) Total Protein 5.7 GM/DL (6.4-8.2) Albumin 2.4 GM/DL (3.4-5.0) Potassium Level 3.4 MEQ/L (3.5-5.1) Calcium Level 8.4 MG/DL (8.5-10.1) Imaging Last 48 hours Impressions Chest X-Ray 11/15/16 0600 Signed Impressions: Service Date/Time: Tuesday, November 15, 2016 04:54 - CONCLUSION: 1. Cardiomegaly and findings of vascular congestion without overt failure. The findings are improved when compared with the prior exam. Jose Ramon Pond MD PE at Discharge GENERAL: This is a well-nourished, well-developed patient, in no apparent distress. Does have mild shortness of breath at baseline. CARDIOVASCULAR: Normal rate and regular rhythm without murmurs, gallops, or rubs. RESPIRATORY: Good respiratory efforts. Diminished breath sounds at the left base, otherwise clear to auscultation. GASTROINTESTINAL: Abdomen soft, non-tender, non-distended. Normal active bowel sounds MUSCULOSKELETAL: Extremities without cyanosis, or edema. NEURO: Alert & Oriented x4 to person, place, time, situation. Moves all ext x4 PSYCH: Appropriate mood and affect. Transfer Summary 86-year-old male with past medical history significant for COPD, coronary artery disease, s/p minimally invasive CABG x1 vessel on 10/19/16, discharged on , chronically on 1 L O2 at home who presented with worsening SOB. Patient was admitted to the hospital service on 11/08/16 with diagnosis of acute CHF and COPD exacerbation, probable healthcare associated pneumonia. A CT angiogram was negative for pulmonary embolism, but moderate pericardial effusion. Patient was placed on broad-spectrum antibiotics Zosyn and azithromycin. Also placed on steroids and breathing treatments. Patient was started on IV Lasix for CHF exacerbation. Chest x-ray showed chronically elevated left hemidiaphragm with left basilar atelectasis, questionable left effusion. Initial WBC 13.9. Apparently overnight his respiratory status worsened and he was placed on BiPAP. ABG after 1 hour BiPAP showed pH of 7.2 PCO2 102 and a PO2 of 120. At that time Dr. Beckett talked with the patient and he was made a DNR. Patient's mental status continued to deteriorate, requiring sedation with Ativan and restraints. Dr. Silva from pulmonology was consulted for respiratory failure. He knows patient from outpatient, and felt that patient did not want to be a DNR, unless care was deemed futile. According to Dr. Silva patient " did not want to live on machines" but temporary intubation was okay. After discussion with Family DNR was rescinded. Critical care medicine was consulted for acute hypoxemic and hypercarbic respiratory failure with encephalopathy. I evaluated the patient immediately. Patient remains on BiPAP but unresponsive. I discussed with the patient's family, patient is unable to protect his airway clearly. I proceeded with endotracheal intubation and placed the patient on mechanical ventilation. A STAT Echo did not show pericardial tamponade 11/10/16 Remains intubated, sedated. FiO2 down to 40%. Follows commands when sedation lightened. CXR and labs pending at this time. Levophed at 8 mcg/min 11/11: wakes up easily follows commands on lightening sedation. Chest x-ray stable to interval improvement. Weaned off Levophed. FiO2 down to 35%, will start weaning trials 11/12: Appears to be tolerating CPAP better today 04/21. Urine output adequate, achieve a negative balance on Lasix. Chest x-ray is pending at this time. Remains off Levophed 11/13: Extubated yesterday tolerating well. Developed AFIb with mild rapid ventricular response. Due to get by mouth amiodarone and metoprolol today Pt update on day of discharge Pt reported he was feeling "better" and noted he was breathing without difficulty. Pt encountered sitting up in a chair with and son in attendance. Family asked questions about pt's Broderick catheter, which is to remain in place until pt is seen by Dr. Barger (urology) for outpatient follow-up. Family and pt asked questions about what to do if "leg swelling" returns. Questions answered, and medication is to be provided. Pt is to follow-up with Dr. Westfall Cardiology. Pt is to follow-up with Dr. Silva (pulmonology). No other issues or concerns raised pt pt or family Hospital Course Mr. Key was admitted on 11/08/16 and discharged on 11/16/16. At the time of admission he was diagnosed with: (1) Acute respiratory failure ICD Code: J96.00 Status: Acute (2) Hospital acquired PNA ICD Code: J18.9 Status: Acute (3) CHF exacerbation ICD Code: I50.9 Status: Acute (4) COPD (chronic obstructive pulmonary disease) ICD Code: J44.9 Status: Chronic (5) Afib ICD Code: I48.91 Status: Chronic (6) Hypertension ICD Code: I10 On 11/09/16 his condition worsened and he was transferred to the ICU, where he remained until 11/14/16. During the course of his stay, Mr. Key was seen by the following services: Emergency, Palliative Care, Critical Care, Cardiology, Cardiovascular surgery, Urology, and Hospitalist. The Hospitalist team was again involved with is care from 11/15/16 for which Mr. Key was treated for: Acute hypoxemic, hypercapnic respiratory failure secondary to probable diastolic CHF, possible pneumonia, Recent CABG. patient is improving. Extruded on 11/12/16. 2D echo -no evidence of tamponade per Dr. Choi -CTS Dr. Dominguez, Cardiology Dr. Westfall-Appreciate pulmonology Dr. Silva following. - Supplemental oxygen, breathing treatments as needed -Continue oral prednisone per pulmonology -Transition to oral antibiotics with Levaquin. - Repeat chest x-ray this morning improved. - Encourage incentive spirometry. Ambulation. Chronic atrial fibrillation -Resumed metoprolol and amiodarone -Resume aspirin if ok with neurology -Resumed metoprolol and amiodarone -Consider resuming Eliquis in a.m. if urine remains clear. -Started on ASA CHF exacerbation, probably diastolic CHF. +2 pitting edema in bilateral lower extremities, s/p cabg. BNP 421, 583 CT chest shows small left pleural effusion on presentation. -CT surgery, Dr. Dominguez following -2-D echo shows preserved LVEF. no evidence of tamponade. -Transition to oral Lasix 20 mg twice a day Probable Hospital acquired PNA with leukocytosis and/or heart failure with worsening pleural effusion Chest x-ray images and report reviewed, there is elevation of the left hemidiaphragm with left basilar atelectasis. Possible associated left-sided effusion. Marked cardiomegaly. -Status post Zosyn and Zithromax IV. Transition to oral Levaquin for an additional 5-7 days -Pneumococcal and legionella urinary antigen negative -Albuterol nebs prn -Blood cultures negative Hematuria: Probably related to urethral trauma. History of prostate cancer -Hematuria resolved. Urology Dr. Barger -Per urology, plan to keep Broderick in for 1 week from 11/11. HTN, Chronic. -On metoprolol and lisinopril. Continue to monitor PROPH: -Bilateral lower extremity SCDs. Protonix 40 mg IV daily. No chemical DVT prophylaxis due to hematuria Pt Condition on Discharge: Stable Discharge Disposition: Disch w/ Home Health Serv Discharge Time: > 30 minutes Discharge Instructions DIET: Follow Instructions for: Heart Healthy Diet Speech Therapy-Diet Recommends: Regular Additional Diet Instructions: Limit fluid intake to less than 1.8 liters a day Activities you can perform: Regular-No Restrictions Other Activity Instructions: Follow PT recommendations. Follow up Referrals: Appointment for Follow Up - 3 Weeks with Jatin Dominguez MD Cardiology - 2 Weeks with Pam Westfall MD Pulmonology - 2 Weeks with Karin Silva MD Urology - 1 Week with Loyd Barger DO New Medications: Prednisone (Prednisone) 10 Mg Tab 10 MG PO DIRECTED Take 20 mg daily for 3 days, then 10 mg daily for 5 days. # 11 Ref 0 TAB Furosemide (Furosemide) 20 Mg Tab 20 MG PO BID@09,18 #60 TAB Levofloxacin (Levaquin) 750 Mg Tab 750 MG PO DAILY #5 TAB Changed Medications: Amiodarone (Amiodarone) 200 Mg Tab 200 MG PO BID Regulate Heart Beat #60 Ref 0 TAB (Changed from: Amiodarone 400 Mg Tab 400 Mg PO BID #60 TAB Ref 0) Lisinopril (Lisinopril) 5 Mg Tab 5 MG PO DAILY Blood Pressure Management #30 Ref 0 TAB (Changed from: Lisinopril 10 Mg Tab 10 Mg PO DAILY #30 TAB Ref 0) Continued Medications: Albuterol 18 GM Inh (Ventolin Hfa 18 GM Inh) 90 Mcg/Act Aer 2 PUFF INH Q4-6H PRN SHORTNESS OF BREATH #2 Ref 0 INHALER Albuterol Neb (Albuterol Neb) 2.5 Mg/3 Ml Neb 2.5 MG NEB Q4HR NEB PRN SHORTNESS OF BREATH #120 Ref 1 NEBULE Apixaban (Eliquis) 5 Mg Tab 5 MG PO BID Blood Clot Prevention #[address] (Aspirin DR) 81 Mg Tabdr 81 MG PO DAILY Ref 0 TAB Atorvastatin (Atorvastatin) 20 Mg Tab 20 MG PO HS Cholesterol Management #30 Ref 2 TAB Docusate Sodium (Dok) 100 Mg Cap 100 MG PO BID Constipation #60 CAP Ipratropium Neb (Ipratropium Neb) 0.5 Mg/2.5 Ml Amp 0.5 MG NEB Q4HR NEB PRN SHORTNESS OF BREATH #120 Ref 1 NEBULE Metoprolol Tartrate (Metoprolol Tartrate) 50 Mg Tab 50 MG PO BID Blood Pressure Management #60 Ref 0 TAB Multiple Vitamins W/ Minerals (Thera M Plus) 1 Tab 1 TAB PO DAILY multi vitamin #30 TAB Salmeterol Inh (Serevent Diskus Inh) 50 Mcg/Act Aero 50 MCG INH BID #1 Ref 0 INHALER Additional Information Written by Trey Zendejas, acting as scribe for Dr. Bazzi on 5/2/17 at 11:08. This note was transcribed by scribjose luis [Trey Zendejas]. I, Dr. Km Bazzi personally performed the history, physical exam, and medical decision making; and confirmed the accuracy of the information in the transcribed note. Authenticated by Dr. Km Bazzi on 11/16/16 at 1110 Trey Zendejas Jr. November 16, 2016 11:06 Km Bazzi MD November 16, 2016 17:23
--- NOTE | 2016-11-16 11:12 | HHI.DCPOC ---
Discharge Care Plan Diagnosis: (1) Acute respiratory failure (2) Hospital acquired PNA (3) Hypoxemia (4) moderate pericardial effusion (5) ventilator dependent resp failure (6) Hematuria Goals to Promote Your Health * To prevent worsening of your condition and complications * To maintain your health at the optimal level Directions to Meet Your Goals Take your medications as prescribed Follow your dietary instruction Follow activity as directed Keep your appointments as scheduled Take your immunizations and boosters as scheduled If your symptoms worsen call your PCP, if no PCP go to Urgent Care Center or Emergency Room Smoking is Dangerous to Your Health. Avoid second hand smoke Call the 24-hour hour crisis hotline for domestic abuse at Trey Zendejas Jr. November 16, 2016 11:12 Km Bazzi MD November 16, 2016 17:21
--- NOTE | 2016-11-17 10:52 | MD ---
cc: Karin ARREOLA ADMISSION DATE: 11/08/2016 DISCHARGE DATE: 11/16/2016 HISTORY Mr. Key is a patient known to me, [id number], with moderate COPD who had been very stable on Serevent Disk for several years. He quit smoking years ago. He had a single-vessel bypass in early October and was complicated by some difficulty postoperatively due to shortness of breath and oxygen dependence but was discharged home stable. He presented back on November 09 clearly with increasing shortness of breath, hypoxemia and what appeared to be a new left lower lobe infiltrate. He was admitted. HOSPITAL COURSE On admission the patient was clearly in respiratory difficulty and arterial blood gases on BiPAP were poor. PCO2 was 105 with a pH 7.22 and a PO2 of 122. Initial CT scan also revealed a left lower lobe infiltrate and a pericardial effusion. An echo revealed no evidence of restrictive pericardial physiology but the patient did appear to be in some element of heart failure with marked increase in lower extremity edema. BNP was also elevated to 580. He was in atrial fibrillation. He had been anticoagulated for atrial fibrillation and on admission his CT angiogram revealed no evidence of thromboembolic disease. Unfortunately, over the initial 24 hours he did deteriorate, required intubation and mechanical ventilatory support. Critical Care monitored and treated him during that period. Cardiology was also involved, made some adjustments in his medication including diuretics, and over 48 hours he improved and was extubated. He was transferred to the floor over the weekend. Today he is awake, alert, comfortable, a little weak. He is using a walker to walk. He is still on oxygen at 3 liters with sats of 94-97%. He is afebrile. All of his cultures came back negative. I should also mention he did receive antibiotics for a suspected left lower lobe pneumonia, again all cultures were negative, however, including sputum which revealed normal julio. His lungs are clear today. His neck veins are flat. He has no peripheral edema at present. His chest x-ray today reveals cardiomegaly, elevated left hemidiaphragm which is chronic and mild vascular congestion which is actually improved. The patient is very stable from a pulmonary standpoint. Cardiology is going to see him later today. I have discontinued his nebulized aerosol treatments in light of the underlying atrial fibrillation and will continue him on his Serevent Disk upon discharge which he has been on chronically. Will do a walk test as well to see if he requires home O2 and we have reviewed that together. Also, a tapering course of prednisone over the next 2 weeks and I will see him back in about 2 weeks anticipating his discharged today or tomorrow. I have thoroughly reviewed this plan with the patient and his family. This was a very sudden and difficult problem and I told them that if there is any relapse prior to follow-up in the office to please bring him directly back into the emergency room for evaluation. R. Andrew Arreola MD RSW/SHAVONNE /12:18 PM /10:39 AM
== END 2016-11-16 16:55 | disposition home health service (06) | DRG 208 ==
LOC: EDBD → NEPE 14:00 → NEDA 17:37 → NEDH 21:37 → N03B 11-09 00:26 → HCIS 11-14 17:35
PROVIDERS: ADMIT Family Medicine; ATTEND Family Medicine
PROC: 5A09457 Assistance with Respiratory Ventilation, 24-96 Consecutive Hours, Continuous Positive Airway Pressure (ICD-10-PCS; 2016-11-08)
PROC: 5A1945Z Respiratory Ventilation, 24-96 Consecutive Hours (ICD-10-PCS; principal; 2016-11-09)
PROC: 0BH17EZ Insertion of Endotracheal Airway into Trachea, Via Natural or Artificial Opening (ICD-10-PCS; 2016-11-09)
PROC: 02HV33Z Insertion of Infusion Device into Superior Vena Cava, Percutaneous Approach (ICD-10-PCS; 2016-11-09)
DX: J96.01 Acute respiratory failure with hypoxia (principal); R65.21 Severe sepsis with septic shock; A41.9 Sepsis, unspecified organism; G93.41 Metabolic encephalopathy; I50.33 Acute on chronic diastolic (congestive) heart failure; J18.9 Pneumonia, unspecified organism; J44.0 Chronic obstructive pulmonary disease with (acute) lower respiratory infection; I11.0 Hypertensive heart disease with heart failure; I31.3 Pericardial effusion (noninflammatory); J44.1 Chronic obstructive pulmonary disease with (acute) exacerbation; J98.11 Atelectasis; J96.02 Acute respiratory failure with hypercapnia; I50.9 Heart failure, unspecified; I48.2 Chronic atrial fibrillation; R31.9 Hematuria, unspecified; E86.0 Dehydration; Y73.2 Prosthetic and other implants, materials and accessory gastroenterology and urology devices associated with adverse incidents; E87.5 Hyperkalemia; K21.9 Gastro-esophageal reflux disease without esophagitis; I25.10 Atherosclerotic heart disease of native coronary artery without angina pectoris; Y95 Nosocomial condition; Y84.6 Urinary catheterization as the cause of abnormal reaction of the patient, or of later complication, without mention of misadventure at the time of the procedure; Z79.01 Long term (current) use of anticoagulants; Z78.1 Physical restraint status; Z85.46 Personal history of malignant neoplasm of prostate; Z86.711 Personal history of pulmonary embolism; Z87.891 Personal history of nicotine dependence; Z92.3 Personal history of irradiation; Z95.1 Presence of aortocoronary bypass graft; Z96.641 Presence of right artificial hip joint; Z99.81 Dependence on supplemental oxygen
CPT/HCPCS: 36556; 36600; 71010; 71275; 76604; 80048; 80053; 81001; 82550; 82805; 83735; 83880; 84100; 84132; 84484; 85007; 85025; 85027; 85379; 85610; 85730; 87040; 87070; 87205; 87449; 87641; 93005; 93306; 93308; 94002; 94003; 94150; 94620; 94640; 94664; 94667; 94668; 96374; 96375; J0456; J1940; J2060; J2250; J2543; J2920; J3480; J7040; J7050; J7512; J7613; P9047; Q9967

== ENCOUNTER 2016-11-21 22:01 | Emergency (ER) | payer MEDICARE, OTHER ==
[~2016-11-21 22:01] MED LIST changes: +AMIO200T PO; -AMIO400T PO; +FURO20TA PO; +LEVA750T PO; +LISI-519 PO; -LISI10TA3 PO; +PRED10 PO
[2016-11-21 22:07] VITALS: BP 0/0; PULSE 0; RESP 0; O2SAT 0
--- NOTE | 2016-11-21 22:20 | PD ---
HPI Chief Complaint: cardiopulmonary arrest Time Seen by Provider: 22:09 Travel History International Travel<30 days: No Contact w/Intl Traveler<30days: No History of Present Illness HPI Patient's 86 years old. He arrives in cardiopulmonary arrest. Prior to ER arrival ACLS protocol had been performed for just under 40 minutes. The patient received seven rounds of epinephrine, 90meq bicarbonate, 1g calcium, Narcan and magnesium. He was intubated on scene with a Combitube. At one point v -fib was observed and the patient received electricity which was followed by asystole. The patient was in EMS reports pt was unresponsive for 10 minutes prior to their arrival with family members performing CPR on scene. Pt arrived to the ER where chest compressions were continued. His eyes were fixed and dilated upon arrival with a GCS of 3. Pt pulseless with asystole on arrival. Transxiphoid view of heart demonstrated akinesis. Pt pronounced at 2205. reports patient walked into his room with a walker and laid on his bed. He then became unresponsive. PFSH Past Medical History Heart Rhythm Problems: Yes (currently afib) Cancer: Yes (prostate CA) Cardiovascular Problems: Yes High Cholesterol: Yes Chest Pain: Yes COPD: Yes Diabetes: No Diminished Hearing: No Endocrine: No Gastrointestinal Disorders: No Glaucoma: No Genitourinary: Yes Hepatitis: No Hiatal Hernia: No Hypertension: Yes Immune Disorder: No Musculoskeletal: No Neurologic: No Psychiatric: No Respiratory: Yes Integumentary: No Radiation Therapy: Yes Thyroid Disease: No Past Surgical History Abdominal Surgery: No Cardiac Surgery: Yes (CABG x 1 10/19/16) Ear Surgery: No Endocrine Surgery: No Eye Surgery: Yes (L eye cataract surgery) Genitourinary Surgery: No Gynecologic Surgery: No Joint Replacement: Yes (RIGHT HIP 09/04/07) Oral Surgery: No Thoracic Surgery: No Other Surgery: Yes Social History Alcohol Use: Yes (2-3 GLASSES OF WINE, NIGHTLY; LAST DRINK 05/11/15) Tobacco Use: No (QUIT, ) Substance Use: No Allergies-Medications (Allergen,Severity, Reaction): Coded Allergies: No Known Allergies (Verified , 05/12/15) Reported Meds & Prescriptions Reported Meds & Active Scripts Active Prednisone 10 Mg Tab 10 Mg PO DIRECTED Take 20 mg daily for 3 days, then 10 mg daily for 5 days. Levaquin (Levofloxacin) 750 Mg Tab 750 Mg PO DAILY Furosemide 20 Mg Tab 20 Mg PO BID@,18 Amiodarone (Amiodarone HCl) 200 Mg Tab 200 Mg PO BID Lisinopril 5 Mg Tab 5 Mg PO DAILY Eliquis (Apixaban) 5 Mg Tab 5 Mg PO BID Oxygen tank (Oxygen) 1 Ea Tank 2 Liter ESPINOZA.CANULA CONTINUOUS Oxygen Concentrator Portable Gaseous 2 L/min via Nasal Cannula Continuous For 99 months Metoprolol Tartrate 50 Mg Tab 50 Mg PO BID Ipratropium Neb (Ipratropium [place]) 0.5 Mg/2.5 Ml Amp 0.5 Mg NEB Q4HR NEB PRN Albuterol Neb (Albuterol Sulfate) 2.5 Mg/3 Ml Neb 2.5 Mg NEB Q4HR NEB PRN Nebulizer Kit/Tubing/Mout (N/A) 1 Kit Kit 1 Kit .ROUTE DIRECTED Ventolin Hfa 18 GM Inh (Albuterol Sulfate) 90 Mcg/Act Aer 2 Puff INH Q4-6H PRN Thera M Plus (Multivitamins/Minerals Therapeutic) 1 Tab 1 Tab PO DAILY Dok (Docusate Sodium) 100 Mg Cap 100 Mg PO BID Atorvastatin (Atorvastatin Calcium) 20 Mg Tab 20 Mg PO HS Reported Serevent Diskus Inh (Salmeterol Xinafoate) 50 Mcg/Act Aero [address] BID Aspirin [address] (Aspirin) 81 Mg Tabdr 81 Mg PO DAILY Review of Systems ROS Limitations: Intubated Physical Exam Narrative GENERAL: 86 yo M, WNWD, GCS3T SKIN: Warm and dry. HEAD: Atraumatic. Normocephalic. EYES: Pupils fixed and dilated. ENT: No nasal bleeding or discharge. Mucous membranes pink and moist. Intubated with Combitube. NECK: Trachea midline. No JVD. CARDIOVASCULAR: Asystole/pulseless. RESPIRATORY: Intubated. GASTROINTESTINAL: Abdomen soft nondistended. Hepatic and splenic margins not palpable. MUSCULOSKELETAL: Extremities without clubbing, cyanosis, or edema. No obvious deformities. NEUROLOGICAL: GCS3T. PSYCHIATRIC: unable to assess. Data Data Last Documented VS Vital Signs Date Time Temp Pulse Resp B/P Pulse Ox O2 Delivery O2 Flow Rate FiO2 11/21/16 22:01 15.00 100 V MDM Medical Decision Making Medical Screen Exam Complete: Yes Emergency Medical Condition: Yes Differential Diagnosis cardiac arrest, respiratory arrest, PE, hypoxia, anoxia, polypharmacy Narrative Course Please refer to HPI. PMD is Dr Rowe. Diagnosis Primary Impression: Additional Instructions: Not applicable. Disposition: 20 Condition: Stable Sanchez Be MD November 21, 2016 22:20
== END 2016-11-21 23:30 | disposition expired ==
LOC: PHED 22:01
DX: I46.9 Cardiac arrest, cause unspecified (principal); J44.9 Chronic obstructive pulmonary disease, unspecified; E78.00 Pure hypercholesterolemia, unspecified; Z85.46 Personal history of malignant neoplasm of prostate; I10 Essential (primary) hypertension; Z87.891 Personal history of nicotine dependence
CPT/HCPCS: 92950